=== PATIENT | female | born 1940 | race Caucasian/White ===

== ENCOUNTER 2017-11-02 18:08 | Inpatient (IN) ==
[2017-11-02] MEDS ORDERED: Ipratropium/Albuterol Neb 3 ML IH ONE (18:10)
--- NOTE | 2017-11-02 18:23 | Emergency Department Note ---
Disposition Clinical Impression: Community acquired pneumonia Disposition: Still a Patient Referrals: Chato Guardado CNP [Primary Care Provider] - Forms: ED Satisfaction Letter General Adult HPI - General Chief complaint: ED Shortness of Breath/Dyspnea Stated complaint: SOB Time Seen by Provider: 11/02/17 18:10 Source: EMS Nursing Notes Reviewed: Yes Vital Signs Reviewed: Yes - History of Present Illness Pain Scale: 0 - Related Data Allergies Allergy/AdvReac Type Severity Reaction Status Date / Time No Known Allergies Allergy Verified 11/02/17 18:12 Past Medical History - Past Medical History Medical history: Reports: cancer, COPD, hyperlipidemia, hypertension Psychiatric history: Reports: no psych history - Social History Smoking Status: Former smoker Smokeless Tobacco Status: No Alcohol use: Reports: none Drug use: Reports: none Physical Exam - General General appearance: alert, anxious Course Vital Signs Temperature 103.1 F H 11/02/17 18:13 Pulse Rate 149 11/02/17 18:13 Respiratory Rate 28 11/02/17 18:13 Blood Pressure 153/103 11/02/17 18:13 O2 Sat by Pulse Oximetry 91 11/02/17 18:13 Temperature 103.1 F H 11/02/17 18:13 Pulse Rate 145 11/02/17 18:28 Respiratory Rate 28 11/02/17 18:28 Blood Pressure 153/103 11/02/17 18:28 O2 Sat by Pulse Oximetry 95 11/02/17 18:28 Oxygen Delivery Oxygen Delivery Nasal Cannula Medical Decision Making - MDM Narrative Medical decision making narrative: This documentation is done with the assistance of Dragon dictation. Despite efforts made to ensure accuracy, there may be inaccuracies in undergraduate advisor or spelling and typographical errors. I examined this patient and my medical decision-making was reviewed with the Resident Physician. I agree with the documented findings, disposition and treatment plan as described except to the extent set forth below. Patient seen on arrival with EMS. Saw her with Dr. Thompson and myself. I agree with her evaluation and management plan, supervised the care the patient's stay. Patient comes in with increasing shortness of breath patient has a history of ovarian cancer with some thickness metastatic disease to the lungs. She is very dyspneic and is basically one word conversational dyspnea shows crackles in her lungs but she also sounds wet. Regular chest x-ray start her on BiPAP. She does not want to be intubated. Spoke to her daughter by phone and her daughter says she is a no code and no intubation. Patient denies any chest pain no fevers. Under chest x-ray BiPAP nebulized treatments lab work and she will need admission. We will stabilize her and then sign her out to the evening ER physician Dr. Damon for further management and disposition. 1816 hrs.: Patient has a sinus tachycardia on EKG with a rate of 144, MI interval is short at 110 care 79 QTc is 405, nonspecific changes in the precordial leads. Compared with an EKG she had done 2 years ago shows no changes except for rate. Chest X-Ray 11/02/17 18:10 IMPRESSION: 1. Increased density within the right hilum which may represent soft tissue mass with postobstructive atelectasis. Alternatively this could be right upper lobe pneumonia with right hilar adenopathy. I would recommend a CT scan of the chest with intravenous contrast for further evaluation. D/ / Mark Anthony Graham MD / Mark Anthony Graham MD Interpreting Provider: Mark Anthony Graham MD 1845 hrs.: Were going to start her on antibiotics. We are going to sign this out to the evening air Dr. Dr. griffin here for further management and disposition. Patient can actually get to 3 words out chest for water which I am given her she is up going on BiPAP then and the remaining lab workup for be completed. - Lab Data Lab Results 11/02/17 Range/Units 18:31 Sample Site R Radial ABG pH 7.48 H (7.32-7.45) pH Units ABG pCO2 28 L (35-45) mmHg ABG pO2 57 L (85-104) mmHg ABG HCO3 20 L (21-27) mEq/L ABG Total CO2 21 (20-26) mEq/L ABG O2 Saturation 92 L (95-98) % ABG Base Excess -2 (-2 to 3) mEq/L Jose Test Positive O2 Delivery Device Cannula Inspired O2 36.0 (1-15=lpm [id number]=%)
[2017-11-02 18:34] LABS: ABG Base Excess -2 mEq/L (-2 to 3); ABG HCO3 20 mEq/L (21-27); ABG Oxygen Saturation 92 % (95-98); ABG PCO2 28 mmHg (35-45); ABG PH 7.48 pH Units (7.32-7.45); ABG PO2 57 mmHg (85-104); ABG TCO2 21 mEq/L (20-26)
[2017-11-02] MEDS ORDERED: *HR* FentaNYL (PF) 100 MCG/2 ML VIAL IVP ONE (18:44)
[2017-11-02] MEDS ORDERED: Piperacillin/Tazobactam 3.375 GM in 0.9 % Sodium Chloride Mini Bag 100 ML IVPB ONE (18:48)
[2017-11-02] MEDS: 0.9 % Sodium Chloride 1,000 ML IVC SCH (18:49)
[2017-11-02] MEDS ORDERED: Acetaminophen 325 MG TABLET PO ONE (18:51)
--- NOTE | 2017-11-02 18:51 | Emergency Department Note ---
Disposition Clinical Impression: Respiratory distress Disposition: Still a Patient Condition: Fair Referrals: Chato Guardado CNP [Primary Care Provider] - Forms: ED Satisfaction Letter Time of Disposition: 18:54 General Adult HPI - General Chief complaint: ED Shortness of Breath/Dyspnea Stated complaint: SOB Time Seen by Provider: 11/02/17 18:10 Source: EMS Nursing Notes Reviewed: Yes Vital Signs Reviewed: Yes - History of Present Illness HPI Narrative: Shortness of breath that began today. Does have a history of metastatic ovarian cancer. States her head no to any kind of pain. Currently [place] get a full review of systems due to patient respiratory status. Pain Scale: 0 - Related Data Allergies Allergy/AdvReac Type Severity Reaction Status Date / Time No Known Allergies Allergy Verified 11/02/17 18:12 Limitations: ROS unobtainable due to patients medical condition Past Medical History - Past Medical History Attestation: Yes The following information was validated with the patient. Source: patient Medical history: Reports: cancer, COPD, hyperlipidemia, hypertension Psychiatric history: Reports: no psych history - Social History Smoking Status: Former smoker Smokeless Tobacco Status: No Alcohol use: Reports: none Drug use: Reports: none Physical Exam - General Limitations: other (In severe respiratory distress) General appearance: alert, anxious, in distress (Respiratory distress) - Head Head exam: atraumatic, normocephalic, normal inspection - Eye Eye exam: Present: normal appearance, PERRL, EOMI - ENT ENT exam: normal exam, normal oropharynx, mucous membranes dry, other (lips chapped) - Neck Neck exam: Present: trachea midline - Chest Chest inspection: Present: normal inspection, symmetric chest wall rise - Respiratory Respiratory exam: Present: respiratory distress (Severe), accessory muscle use, other (Rales throughout) - Cardiovascular Cardiovascular exam: Present: tachycardia, normal heart sounds - Abdominal Exam Abdominal exam: Present: soft, Non-Tender. Absent: distention, guarding, rigidity, organomegaly - Extremities Exam Extremities exam: Present: normal inspection, normal capillary refill. Absent: pedal edema - Back Exam Back exam: Present: normal inspection, full ROM. Absent: tenderness - Neurological Exam Neurological exam: Present: alert, oriented X3, other (Will answer questions appropriately however is in severe respiratory distress.) - Psychiatric Psychiatric exam: Present: anxious - Skin Skin exam: Present: warm, dry, intact, normal color Course Course Narrative: Female patient presents in respiratory by EMS for shortness of breath. EMS states that they are aware of the patient have known her for several years. He states that she has metastatic ovarian cancer. He was significantly short of breath whenever they got to her house. She does have rales throughout. She is using accessory muscles to breathe. She is mentating appropriately but in significant distress. I discussed intubation with her and she requests not to be intubated. Place patient on BiPAP at this time. We have started her on fluids but at a low rate due to her rales. She does not appear to have edema is in her extremities. She shakes her head no to any recent fevers. However it is hard to get a full review of systems due to her significant respiratory distress. She is tachycardic on exam. We will start 2 IVs get a chest x-ray. We will give her 3 duo nebs. We will do a sepsis workup on her and start her on Vanco and Zosyn. I anticipate admission. I spoke with the patient's daughter on the phone. The daughter states that the patient does have paperwork somewhere but she is unaware of that that would talk about her wishes. The patient's daughter was questioned several times and she states the patient would not want to have CPR and she does not want to be intubated or placed on a ventilator. We will honor these wishes as the patient has also expressed no intubation. Vital Signs Temperature 103.1 F H 11/02/17 18:13 Pulse Rate 149 11/02/17 18:13 Respiratory Rate 28 11/02/17 18:13 Blood Pressure 153/103 11/02/17 18:13 O2 Sat by Pulse Oximetry 91 11/02/17 18:13 Temperature 103.1 F H 11/02/17 18:13 Pulse Rate 145 11/02/17 18:28 Respiratory Rate 28 11/02/17 18:28 Blood Pressure 153/103 11/02/17 18:28 O2 Sat by Pulse Oximetry 95 11/02/17 18:28 Oxygen Delivery Oxygen Delivery Nasal Cannula Medical Decision Making - Lab Data Lab Results 11/02/17 Range/Units 18:31 Sample Site R Radial ABG pH 7.48 H (7.32-7.45) pH Units ABG pCO2 28 L (35-45) mmHg ABG pO2 57 L (85-104) mmHg ABG HCO3 20 L (21-27) mEq/L ABG Total CO2 21 (20-26) mEq/L ABG O2 Saturation 92 L (95-98) % ABG Base Excess -2 (-2 to 3) mEq/L Jose Test Positive O2 Delivery Device Cannula Inspired O2 36.0 (1-15=lpm [id number]=%) S.B.A.Clifford. - S.[email or web address] Background: Presenting Complaint (Severe shortness of breath), Relevant PMH, Meds, & Allergies (Metastatic ovarian cancer with metastases to the chest and lymph nodes.) Assessment: Course and respsone to treatment (On BiPAP.), Exam Concerns ( Significant rales throughout.), Patient/Family Expectation (Family has expressed that the patient is a DNI.) Recommendation: Recommendation based on pending studies, treatments, or consults (Admission) S.B.A.R. Report Given to: Marcelino Herzog Repor Time: 18:54
[2017-11-02 19:05] LABS: Hematocrit 37.4 % (35.3-44.9); Hemoglobin 13.4 g/dL (11.5-15.4); Mean Corpuscular HGB Conc 35.8 g/dL (31.6-35.5); Mean Corpuscular Hemoglobin 33.6 pg (28.0-33.3); Mean Corpuscular Volume 93.7 fL (83.0-100.0); Mean Platelet Volume 10.5 fL (9.4-12.4); Platelet Count 185 K/mcL (140-400); Red Blood Count 3.99 M/mcL (3.82-4.97); Red Cell Distribution Width 13.8 % (11.5-14.5)
[2017-11-02 19:06] LABS: INR 1.5; Prothrombin Time 15.8 Seconds (9.4-12.1)
[2017-11-02 19:22] LABS: Albumin 3.8 g/dL (3.5-5.7); Albumin/Globulin Ratio 1.2 (1.1-2.2); Bilirubin,Total 1.2 mg/dL (0.3-1.0); Calcium 8.9 mg/dL (8.6-10.3); Globulin 3.1 g/dL (2.4-3.5); Potassium 3.3 mEq/L (3.5-5.1); Total Protein 6.9 g/dL (6.4-8.9)
[2017-11-02 19:38] LABS: Lymphocytes # 1.6 K/mcL (0.6-4.6); Monocytes # 2.2 K/mcL (0.0-1.3); Neutrophils # 23.3 K/mcL (1.6-8.9); Platelet Estimate Normal (Normal)
[2017-11-02 19:42] LABS: Troponin I 0.05 ng/mL (< 0.04)
[2017-11-02] MEDS ORDERED: Propofol 500 MG/50 ML INFUS..BTL ONE (19:51)
[2017-11-02] MEDS ORDERED: 0.9 % Sodium Chloride 1,000 ML IVC ONE (19:53)
[2017-11-02] MEDS ORDERED: 0.9 % Sodium Chloride 500 ML IVC ONE ×2 (19:53→23:08)
[2017-11-02] MEDS ORDERED: Levofloxacin 750 MG/150 ML 750 MG/150 ML BAG IVPB ONE (19:53)
[2017-11-02 19:57] LABS: Magnesium 1.3 mg/dL (1.6-2.6); Phosphorous 1.6 mg/dL (2.7-4.5)
--- NOTE | 2017-11-02 20:10 | Emergency Department Note ---
Disposition Clinical Impression: Respiratory distress Community acquired pneumonia Qualifiers: Laterality: right Lung location: upper lobe of lung Qualified Code(s): J18.1 - Lobar pneumonia, unspecified organism Sepsis Qualifiers: Sepsis type: sepsis due to unspecified organism Qualified Code(s): A41.9 - Sepsis, unspecified organism Disposition: Admitted As Inpatient Condition: Fair Time of Disposition: 20:30 General Adult HPI - General Chief complaint: ED Shortness of Breath/Dyspnea Stated complaint: SOB Time Seen by Provider: 11/02/17 18:10 Source: EMS Limitations: other (In severe respiratory distress) - History of Present Illness Pain Scale: 0 - Related Data Home Medications Medication Instructions Recorded Confirmed Albuterol Sulfate [Ventolin Hfa] 1 puff IH DAILY PRN 11/02/17 11/02/17 Citalopram Hydrobromide 40 mg PO DAILY 11/02/17 11/02/17 [Citalopram HBr] Lisinopril [Zestril] 40 mg PO DAILY 11/02/17 11/02/17 Rucaparib Camsylate [Rubraca] 30 mg PO DAILY 11/02/17 11/02/17 Allergies Allergy/AdvReac Type Severity Reaction Status Date / Time No Known Allergies Allergy Verified 11/02/17 18:12 Past Medical History - Past Medical History Medical history: Reports: cancer, COPD, hyperlipidemia, hypertension Psychiatric history: Reports: no psych history - Social History Smoking Status: Former smoker Smokeless Tobacco Status: No Alcohol use: Reports: none Drug use: Reports: none Physical Exam - General Limitations: other (In severe respiratory distress) General appearance: alert, anxious, in distress (Respiratory distress) Course Course Narrative: 77-year-old female presenting with shortness of breath signed out to us by the day team. Patient's laboratory analysis shows elevated white blood cell count along with probable right upper lobe pneumonia. Patient was attempted to be placed on BiPAP but respiratory rate still in the 50s. We spoke at length with the patient and her daughter who is her power of state's attorney and they agreed to admit the patient at this time. Patient is alert and oriented 3 in the room. She is tachycardic and hypertensive but otherwise vital signs stable. We will plan to intubate the patient and perform a CT of the chest. We will then admit the patient to the ICU. Patient and family members at bedside agree with this plan. I spoke with the hospitalist on-call Dr. Franks who agrees to accept the patient at this time to the ICU. Patient tolerated intubation well. We added Levaquin to the bank and Zosyn arty prescribed. We also provided thee patient with another 1500 mL of fluid to reach her 30 mL/kg dosing for sepsis. Vital Signs Temperature 103.1 F H 11/02/17 18:13 Pulse Rate 149 11/02/17 18:13 Respiratory Rate 28 11/02/17 18:13 Blood Pressure 153/103 11/02/17 18:13 O2 Sat by Pulse Oximetry 91 11/02/17 18:13 Temperature 98.9 F 11/03/17 03:57 Pulse Rate 118 11/03/17 06:00 Respiratory Rate 18 11/03/17 06:00 Blood Pressure 113/62 11/03/17 06:00 O2 Sat by Pulse Oximetry 100 11/03/17 06:00 Oxygen Delivery Oxygen Delivery Ventilator Procedures - Intubation Time out performed: Yes sedative: Etomidate Mg Given: 20 paralytic: Rocuronium Mg Given: 100 Laryngoscope: fiber optic video scope ET Tube Size: 7.5 ET Tube Uncuffed: No Tube Secured Depth (cm): 20 Tube Secured Location: lips Tube Placement Confirmation: visualized tube passing through cords, equal breath sounds bilaterally, no breath sounds over epigastrium, confirmation by capnometry Patient Tolerated Procedure: well Intubation Complications: difficult intubation Medical Decision Making - Lab Data Result diagrams: 11/03/17 04:15 11/03/17 04:15 Lab Results 11/02/17 11/02/17 11/02/17 Range/Units 18:31 18:42 18:42 WBC 27.1 H (4.3-11.1) K/mcL RBC 3.99 (3.82-4.97) M/mcL Hgb 13.4 (11.5-15.4) g/dL Hct 37.4 (35.3-44.9) % MCV 93.7 (83.0-100.0) fL MCH 33.6 H (28.0-33.3) pg MCHC 35.8 H (31.6-35.5) g/dL RDW 13.8 (11.5-14.5) % Plt Count 185 (140-400) K/mcL MPV 10.5 (9.4-12.4) fL Seg Neutrophils % 68.0 % Band Neutrophils % 18.0 H (0-4) % Lymphocytes % 6.0 % Monocytes % 8.0 % Neutrophils # 23.3 H (1.6-8.9) K/mcL Lymphocytes # 1.6 (0.6-4.6) K/mcL Monocytes # 2.2 H (0.0-1.3) K/mcL Platelet Estimate Normal (Normal) PT 15.8 H (9.4-12.1) Seconds INR 1.5 Sample Site R Radial ABG pH 7.48 H (7.32-7.45) pH Units ABG pCO2 28 L (35-45) mmHg ABG pO2 57 L (85-104) mmHg ABG HCO3 20 L (21-27) mEq/L ABG Total CO2 21 (20-26) mEq/L ABG O2 Saturation 92 L (95-98) % ABG Base Excess -2 (-2 to 3) mEq/L Jose Test Positive O2 Delivery Device Cannula Inspired O2 36.0 (1-15=lpm [id number]=%) Sodium (136-145) mEq/L Potassium (3.5-5.1) mEq/L Chloride (98-107) mEq/L Carbon Dioxide (23-29) mEq/L BUN (8-23) mg/dL Creatinine (0.60-1.20) mg/dL Est GFR ( Amer) (> 60) Est GFR (Non-Af Amer) (> 60) BUN/Creatinine Ratio (6-26) Glucose (70-105) mg/dL Calculated Osmolality (280-300) Lactic Acid (0.5-2.2) mmol/L Calcium (8.6-10.3) mg/dL Phosphorus (2.7-4.5) mg/dL Magnesium (1.6-2.6) mg/dL Total Bilirubin (0.3-1.0) mg/dL AST (13-39) Units/L ALT (7-52) Units/L Alkaline Phosphatase (34-104) Units/L Troponin I (< 0.04) ng/mL B-Natriuretic Peptide (Less than 100) pg/mL Serum Total Protein (6.4-8.9) g/dL Albumin (3.5-5.7) g/dL Globulin (2.4-3.5) g/dL Albumin/Globulin Ratio (1.1-2.2) 11/02/17 11/02/17 11/02/17 Range/Units 18:42 18:42 18:42 WBC (4.3-11.1) K/mcL RBC (3.82-4.97) M/mcL Hgb (11.5-15.4) g/dL Hct (35.3-44.9) % MCV (83.0-100.0) fL MCH (28.0-33.3) pg MCHC (31.6-35.5) g/dL RDW (11.5-14.5) % Plt Count (140-400) K/mcL MPV (9.4-12.4) fL Seg Neutrophils % % Band Neutrophils % (0-4) % Lymphocytes % % Monocytes % % Neutrophils # (1.6-8.9) K/mcL Lymphocytes # (0.6-4.6) K/mcL Monocytes # (0.0-1.3) K/mcL Platelet Estimate (Normal) PT (9.4-12.1) Seconds INR Sample Site ABG pH (7.32-7.45) pH Units ABG pCO2 (35-45) mmHg ABG pO2 (85-104) mmHg ABG HCO3 (21-27) mEq/L ABG Total CO2 (20-26) mEq/L ABG O2 Saturation (95-98) % ABG Base Excess (-2 to 3) mEq/L Jose Test O2 Delivery Device Inspired O2 (1-15=lpm [id number]=%) Sodium 137 (136-145) mEq/L Potassium 3.3 L (3.5-5.1) mEq/L Chloride 102 (98-107) mEq/L Carbon Dioxide 20 L (23-29) mEq/L BUN 29 H (8-23) mg/dL Creatinine 1.52 H (0.60-1.20) mg/dL Est GFR ( Amer) 40 L (> 60) Est GFR (Non-Af Amer) 33 L (> 60) BUN/Creatinine Ratio 19 (6-26) Glucose 176 H (70-105) mg/dL Calculated Osmolality 294 (280-300) Lactic Acid 2.1 (0.5-2.2) mmol/L Calcium 8.9 (8.6-10.3) mg/dL Phosphorus 1.6 L (2.7-4.5) mg/dL Magnesium 1.3 L (1.6-2.6) mg/dL Total Bilirubin 1.2 H (0.3-1.0) mg/dL AST 36 (13-39) Units/L ALT 24 (7-52) Units/L Alkaline Phosphatase 95 (34-104) Units/L Troponin I 0.05 H* (< 0.04) ng/mL B-Natriuretic Peptide 112 H (Less than 100) pg/mL Serum Total Protein 6.9 (6.4-8.9) g/dL Albumin 3.8 (3.5-5.7) g/dL Globulin 3.1 (2.4-3.5) g/dL Albumin/Globulin Ratio 1.2 (1.1-2.2) Attestation Statement - Attestation Attestation: I examined this patient and my medical decision-making was reviewed with the Resident Physician. I agree with the documented findings, disposition and treatment plan as described except to the extent set forth below. Patient is alert and oriented and failing BiPAP. She is requesting to be intubated. She does have possible reversible causes of illness including pneumonia. She is febrile and has influenza. We will start treatment with antibiotics, admit to intensive care unit. Patient was intubated without any difficulties. She does appear to be responsive to IV fluids. Patient remains in critical condition with high potential for life-threatening deterioration. I spent greater than 35 minutes of critical care time. This was excluding billable procedures.
[2017-11-02] MEDS: Propofol 500 MG/50 ML INFUS..BTL IVC SCH (20:13)
[2017-11-02] MEDS ORDERED: *HR* Rocuronium Bromide 50 MG/5 ML VIAL IVP ONE (20:28)
[2017-11-02] MEDS ORDERED: *HR* Etomidate 20 MG/10 ML AMPUL IVP ONE (20:28)
[2017-11-02 21:06] LABS: Bilirubin,Urine Small (Negative); Blood,Urine Large (Negative); Clarity,Urine Turbid (Clear); Color,Urine Dark Yellow (Yellow); Glucose,Urine (UA) Normal (Normal); Ketones,Urine Trace mg/dL (Negative); Leukocyte Esterase,Urine Negative (Negative); Nitrite,Urine Negative (Negative); PH,Urine 5.5 pH Units (5.0-8.0); Protein,Urine >=300 mg/dL (Neg-Trace); Urobilinogen,Urine Normal (Normal)
[2017-11-02 21:09] LABS: Bacteria,Urine None Seen per hpf (None-Few); Squamous Epithelial Cell,Urine Many per lpf (None-Few)
[2017-11-02 21:13] LABS: Amorphous Sediment,Urine Many (Few); RBC,Urine 0-3 per hpf (0-3)
[2017-11-02 21:14] LABS: Granular Casts,Urine Few per lpf (None Seen)
--- NOTE | 2017-11-02 21:18 | Pulmonology History & Physical ---
<Ian Lopez - Last Filed: 11/02/17 22:46> Date of Encounter: 11/02/17 Time of Encounter: 21:14 Assessment and Plan (1) Acute respiratory failure Current visit: Yes Status: Acute - Acute respiratory failure was secondary to multifocal pneumonia as demonstrated on chest CT on 11/02/17 - Patient did require intubation and mechanical ventilation in the emergency department due to accessory muscles fatigue and tachypnea - Vitals significant for tachycardia, tachypnea, fever of 103.1 - Started on vancomycin, zosyn, levaquin in ED - ABG showing respiratory alkalosis likely secondary to tachypnea - She did receive a 30mL/kg bolus in ED per sepsis protocol - No home O2 requirement. No diagnosis of COPD however is a current smoker. Plan - Continue Vanc, zosyn, levaquin as above for multifocal PNA - Continue ventilator support - Sedation with fentanyl and versed - Continue to closely monitor in ICU Qualifiers: Respiratory failure complication: hypoxia Qualified Code(s): J96.01 - Acute respiratory failure with hypoxia (2) Severe sepsis Current visit: Yes Status: Acute - Severe sepsis secondary to multifocal PNA as above - Lactic acid on presentation of 2.1 - Vitals significant for tachycardia, tachypnea, fever of 103.1. - WBC of 27.1 - Started on empiric coverage in ED with vanc, zosyn, levaquin Plan - Continue abx as above, day #1 - Monitor for need for pressor support. Currently hypertensive - Trend lactic acid, daily labs (3) Multifocal pneumonia Current visit: Yes Status: Acute - As above for severe sepsis and respiratory failure - Currently on chemo agents with treatment in [place]. (4) Acute kidney injury Current visit: Yes Status: Acute - BUN/Cr of 28/1.52 in ED - Baseline at only other visit in 2016 shows a Cr of 0.87 - This is possibly due to severe sepsis and dehydration Plan - Receiving NS boluses as well as maintenance fluids following - Avoid nephrotoxic agents - Consider discontinue vanc if she clinically improves. (5) Ovarian cancer Current visit: Yes Status: Acute - Reported metastatic ovarian cancer per granddaughter and ED physician - Receives treatment in [place] - Currently taking chemo agents. - Will attempt to obtain records - Continue treatment as outpatient. Qualifiers: Laterality: unspecified laterality Qualified Code(s): C56.9 - Malignant neoplasm of unspecified ovary (6) Diabetes mellitus Current visit: Yes Status: Acute - Suspected DM however not documented in chart. - Glucose of 176 in ED - Will obtain A1c - SSI Qualifiers: Diabetes mellitus type: type 2 Diabetes mellitus usp insulin use: unspecified usp insulin use status Diabetes mellitus complication status : with unspecified complications Qualified Code(s): E11.8 - Type 2 diabetes mellitus with unspecified complications (7) CAD (coronary artery disease) Current visit: Yes Status: Chronic - Daughter reports history of stents - Will continue ASA, BB as BP and HR tolerate. Qualifiers: Coronary Disease-Associated Artery/Lesion type: [place] artery [place] vs. transplanted heart: [place] heart Associated angina: angina presence unspecified Qualified Code(s): I25.10 - Atherosclerotic heart disease of [place] coronary artery without angina pectoris (8) Physical deconditioning Current visit: Yes Status: Acute - PT/OT when able (9) DVT prophylaxis Current visit: Yes Status: Acute Lovenox History of Present Illness Chief complaint: SOB HPI: Ms. Hooper is a 77 year old female with past medical history of CAD, ovarian cancer, diabetes presents emergency room with a complaint of shortness of breath. During time of interview, patient is intubated and sedated and is unable to participate in interview. Subjective history is obtained through chart review as well as granddaughter, who is present at bedside. Per granddaughter, patient has been complaining of shortness of breath, chest congestion for the past week however she has noted that it has gotten progressively worse starting this morning. She was complaining of a cough but is been unable to produce sputum. She has noted some subjective fevers. In the emergency department, vital signs were significant for tachycardia with EKG showing sinus tachycardia with rate in the 140s. Tachypnea in high 20s, hypertension, fever of 103.1. Labs were significant for a WBC of 27.1, potassium 3.3, AK I with BUN/creatinine of 28/1.52, ABG shows a respiratory alkalosis and lactic acid 2.1. BNP was 112. She did receive fluid resuscitation. Patient did remain tachypneic and using accessory muscles to breathe despite positive pressure ventilation. This was discussed with the patient and her family who were alert and oriented 3 at the time and they did agree to intubation. She was started on vancomycin, Zosyn, Levaquin and also received DuoNeb breathing treatments. CT scan obtained in emergency department did show a likely multifocal pneumonia. Past Med Surg Social Fam HX - Past Medical History Medical history: cancer, COPD, hyperlipidemia, hypertension Psychiatric history: no psych history - Social History Smoking Status: Former smoker Smokeless Tobacco Status: No Alcohol use: none Drug use: none Medications and Allergies Albuterol Sulfate [Ventolin Hfa] 1 puff IH DAILY PRN 11/02/17 [History] Citalopram Hydrobromide [Citalopram HBr] 40 mg PO DAILY 11/02/17 [History] Lisinopril [Zestril] 40 mg PO DAILY 11/02/17 [History] Rucaparib Camsylate [Rubraca] 30 mg PO DAILY 11/02/17 [History] 3 Allergy/AdvReac Type Severity Reaction Status Date / Time No Known Allergies Allergy Verified 11/02/17 18:12 ROS unobtainable: due to endotracheal tube All Systems: The remainder of the systems were reviewed and are negative Physical Examination Vital Signs: Vital Signs, Last 4 Hours Pulse Resp BP Pulse Ox 11/02/17 21:04 144 15 203/85 92 11/02/17 20:43 147 15 208/99 95 11/02/17 20:25 16 95 Gen.: Vitals noted. No acute distress. Sedated and intubated, resting comfortably. HEENT: PERRL/EOMI, oropharynx clear, Normocephalic, atraumatic Cardiac: Tachycardic, no murmur, +S1/S2 Pulmonary: Moderate expiratory rhonchi appreciated diffusely. Abdomen: soft, nontender, BS noted, no guarding Extremities: no BLE edema, nontender calf, no cyanosis or clubbing. Warm to touch Neuro: Unable to assess secondary to sedation. Pupils reactive. Results - Laboratory Findings CBC and BMP: 11/02/17 18:42 11/02/17 18:42 ABG ABG pH 7.48 pH Units (7.32-7.45) H 11/02/17 18:31 ABG pCO2 28 mmHg (35-45) L 11/02/17 18:31 ABG pO2 57 mmHg (85-104) L 11/02/17 18:31 ABG O2 Saturation 92 % (95-98) L 11/02/17 18:31 PT/INR, D-dimer PT 15.8 Seconds (9.4-12.1) H 11/02/17 18:42 Abnormal lab findings: Abnormal lab results WBC 27.1 K/mcL (4.3-11.1) H 11/02/17 18:42 MCH 33.6 pg (28.0-33.3) H 11/02/17 18:42 MCHC 35.8 g/dL (31.6-35.5) H 11/02/17 18:42 Band Neutrophils % 18.0 % (0-4) H 11/02/17 18:42 Neutrophils # 23.3 K/mcL (1.6-8.9) H 11/02/17 18:42 Monocytes # 2.2 K/mcL (0.0-1.3) H 11/02/17 18:42 PT 15.8 Seconds (9.4-12.1) H 11/02/17 18:42 ABG pH 7.48 pH Units (7.32-7.45) H 11/02/17 18:31 ABG pCO2 28 mmHg (35-45) L 11/02/17 18:31 ABG pO2 57 mmHg (85-104) L 11/02/17 18:31 ABG HCO3 20 mEq/L (21-27) L 11/02/17 18:31 ABG O2 Saturation 92 % (95-98) L 11/02/17 18:31 Potassium 3.3 mEq/L (3.5-5.1) L 11/02/17 18: Carbon Dioxide 20 mEq/L (23-29) L 11/02/17 18:42 BUN 29 mg/dL (8-23) H 11/02/17 18:42 Creatinine 1.52 mg/dL (0.60-1.20) H 11/02/17 18:42 Est GFR ( Amer) 40 (> 60) L 11/02/17 18:42 Est GFR (Non-Af Amer) 33 (> 60) L 11/02/17 18:42 Glucose 176 mg/dL (70-105) H 11/02/17 18:42 Phosphorus 1.6 mg/dL (2.7-4.5) L 11/02/17 18:42 Magnesium 1.3 mg/dL (1.6-2.6) L 11/02/17 18:42 Total Bilirubin 1.2 mg/dL (0.3-1.0) H 11/02/17 18:42 Troponin I 0.05 ng/mL (< 0.04) H* 11/02/17 18:42 B-Natriuretic Peptide 112 pg/mL (Less than 100) H 11/02/17 18:42 Ur Specimen Adequacy See below A 11/02/17 20:24 Urine Clarity Turbid (Clear) A 11/02/17 20:24 Ur Specific [place] 1.030 (1.010-1.025) H 11/02/17 20:24 Urine Protein >=300 mg/dL (Neg-Trace) H 11/02/17 20:24 Urine Ketones Trace mg/dL (Negative) H 11/02/17 20:24 Urine Blood Large (Negative) H 11/02/17 20:24 Urine Bilirubin Small (Negative) H 11/02/17 20:24 Urine Microscopic WBC TNTC per hpf (0-3) H 11/02/17 20:24 Ur Squamous Epith Cells Many per lpf (None-Few) H 11/02/17 20:24 <Victoria Aguayo - Last Filed: 11/03/17 03:54> Date of Encounter: 11/02/17 History of Present Illness HPI: Ms. Hooper is a 77 year old female All Systems: The remainder of the systems were reviewed and are negative Physical Examination Vital Signs: Vital Signs, Last 4 Hours Temp Pulse Resp BP Pulse Ox 11/03/17 03:19 18 102/59 95 11/03/17 02:28 21 102/58 95 11/03/17 02:00 113 18 102/58 95 11/03/17 01:00 123 19 131/95 98 11/03/17 00:08 98.4 F 11/03/17 00:00 122 15 122/65 96 11/02/17 23:49 15 118/52 961 Results - Laboratory Findings CBC and BMP: 11/02/17 22:40 11/02/17 22:40 ABG ABG pH 7.21 pH Units (7.32-7.45) L 11/03/17 02:45 ABG pCO2 51 mmHg (35-45) H 11/03/17 02:45 ABG pO2 78 mmHg (85-104) L 11/03/17 02:45 ABG O2 Saturation 92 % (95-98) L 11/03/17 02:45 PT/INR, D-dimer PT 15.8 Seconds (9.4-12.1) H 11/02/17 18:42 Abnormal lab findings: Abnormal lab results WBC 27.5 K/mcL (4.3-11.1) H 11/02/17 22:40 RBC 3.79 M/mcL (3.82-4.97) L 11/02/17 22:40 Band Neutrophils % 16.0 % (0-4) H 11/02/17 22:40 Neutrophils # 26.4 K/mcL (1.6-8.9) H 11/02/17 22:40 Dohle Bodies Present (Not Present) A 11/02/17 22:40 PT 15.8 Seconds (9.4-12.1) H 11/02/17 18:42 ABG pH 7.21 pH Units (7.32-7.45) L 11/03/17 02:45 ABG pCO2 51 mmHg (35-45) H 11/03/17 02:45 ABG pO2 78 mmHg (85-104) L 11/03/17 02:45 ABG O2 Saturation 92 % (95-98) L 11/03/17 02:45 ABG Base Excess -7 mEq/L (-2 to 3) L 11/03/17 02:45 Carbon Dioxide 20 mEq/L (23-29) L 11/02/17 22:40 BUN 28 mg/dL (8-23) H 11/02/17 22:40 Creatinine 1.69 mg/dL (0.60-1.20) H 11/02/17 22:40 Est GFR ( Amer) 36 (> 60) L 11/02/17 22:40 Est GFR (Non-Af Amer) 29 (> 60) L 11/02/17 22:40 Glucose 262 mg/dL (70-105) H 11/02/17 22:40 POC Glucose 220 mg/dL (58-89) H 11/02/17 21:50 Hemoglobin A1c 5.8 % (-5.6) H 11/02/17 22:40 Lactic Acid 4.1 mmol/L (0.5-2.2) H* 11/02/17 22:40 Calcium 7.7 mg/dL (8.6-10.3) L 11/02/17 22:40 Phosphorus 1.6 mg/dL (2.7-4.5) L 11/02/17 18:42 Magnesium 1.3 mg/dL (1.6-2.6) L 11/02/17 18:42 Total Bilirubin 1.2 mg/dL (0.3-1.0) H 11/02/17 18:42 Troponin I 0.05 ng/mL (< 0.04) H* 11/02/17 18:42 B-Natriuretic Peptide 112 pg/mL (Less than 100) H 11/02/17 18:42 Ur Specimen Adequacy See below A 11/02/17 20:24 Urine Clarity Turbid (Clear) A 11/02/17 20:24 Ur Specific [place] 1.030 (1.010-1.025) H 11/02/17 20:24 Urine Protein >=300 mg/dL (Neg-Trace) H 11/02/17 20:24 Urine Ketones Trace mg/dL (Negative) H 11/02/17 20:24 Urine Blood Large (Negative) H 11/02/17 20:24 Urine Bilirubin Small (Negative) H 11/02/17 20:24 Urine Microscopic WBC 5-15 per hpf (0-3) H 11/02/17 20:24 Ur Squamous Epith Cells Many per lpf (None-Few) H 11/02/17 20:24 Amorphous Sediment Many (Few) H 11/02/17 20:24 Granular Casts Few per lpf (None Seen) H 11/02/17 20:24 - Attending Attestation I examined this patient and my medical decision-making was reviewed with the Resident Physician Dr. Lopez. I agree with the documented findings, disposition and treatment plan as described except to the extent set forth below. Ms. Hooper is a 77 year old female with past medical history of CAD, metastatic ovarian cancer,COPD and diabetes presented to emergency room with a complaint of shortness of breath. She does have multi focal pneumonia and her hypoxia got worsened in the ER. So pt was intubated and admitted to ICU. When I examined the pt she is resting comfortably on vent. on sedation with Fentanyl and Versed gtt. Gen: on Vent.. Sedated Chest: Moderate wheezing, Diminished BS b/l, no crackles. mild rhonchi Heart : S1S2+ Sinus tachycardia Abd: Soft, NT a/p 1. Severe sepsis 2. Acute hypoxic resp failure 3. Acute VDRF 4. Acute COPD / Reactive airway disease exacerbation 5. Acute MLL pneumonia - mostly bacterial Broad spec abx Zosyn, Vanc and Levaquin Sedation Repeat ABG Duoneb IV steroids Talked to the pt's grand daughter at bed side and explained to her about current care 6. Ovaraian cancer 7. ?? Mets in lungs Reviewed CT of chest concerning for mets Will obtain medical records from [facility] Spent 60 minutes critical care time on this patient
[2017-11-02] MEDS ORDERED: *HR* Dextrose 50 % in Water (Syg) 50 ML SYRINGE IVP PRN (21:33)
[2017-11-02] MEDS ORDERED: Naloxone 0.4 MG/ML INJ IVP PRN (21:33)
[2017-11-02] MEDS ORDERED: Dextrose Gel 15 GM/37.5 ML TUBE PO PRN ×2 (21:33)
[2017-11-02] MEDS ORDERED: D5% in Water 1,000 ML IVC PRN (21:33)
[2017-11-02] MEDS ORDERED: Vancomycin (wt based) 1,000 MG VIAL IVPB SCH (22:00)
[2017-11-02] MEDS ORDERED: Potassium Phosphate 44 MEQ in 0.9 % Sodium Chloride 250 ML IVPB PRN (22:14)
--- NOTE | 2017-11-02 22:47 | Sepsis Event Note ---
Sepsis Reassessment Note - Evaluation Sepsis Screen: Sepsis Risk Current Stage of Sepsis: septic shock Possible Source of Sepsis: pulmonary - Focused Exam Date of Encounter: 11/02/17 Time of Encounter: 23:30 Vital Signs: Vital Signs Temp Pulse Resp BP Pulse Ox 11/02/17 22:35 15 184/83 93 11/02/17 22:01 140 11/02/17 22:00 140 15 196/86 92 11/02/17 21:52 99.2 F 141 15 187/85 95 11/02/17 21:04 144 15 203/85 92 11/02/17 20:43 147 15 208/99 95 11/02/17 20:25 16 95 Respiratory Exam: Present: rhonchi Cardiovascular Exam: Present: tachycardia, S1, S2 Capillary Refill: < 2 seconds Peripheral Pulse Strength: 2+ slightly diminished Peripheral Pulse Location: Radial Skin Exam: normal turgor
[2017-11-02] MEDS: FentaNYL (PF) 1,000 MCG in 0.9 % Sodium Chloride 80 ML IVC SCH (22:51)
[2017-11-02 22:57] LABS: Hematocrit 36.6 % (35.3-44.9); Hemoglobin 12.4 g/dL (11.5-15.4); Lymphocytes # 0.6 K/mcL (0.6-4.6); Mean Corpuscular HGB Conc 33.9 g/dL (31.6-35.5); Mean Corpuscular Hemoglobin 32.7 pg (28.0-33.3); Mean Corpuscular Volume 96.6 fL (83.0-100.0); Mean Platelet Volume 9.9 fL (9.4-12.4); Platelet Count 160 K/mcL (140-400); Red Blood Count 3.79 M/mcL (3.82-4.97); Red Cell Distribution Width 14.4 % (11.5-14.5)
[2017-11-02 23:07] LABS: Estimated Average Glucose 120 mg/dl; Hemoglobin A1C 5.8 %
[2017-11-02 23:09] LABS: Calcium 7.7 mg/dL (8.6-10.3); Potassium 3.7 mEq/L (3.5-5.1)
[2017-11-02 23:24] LABS: Dohle Bodies Present (Not Present); Monocytes # 0.6 K/mcL (0.0-1.3); Neutrophils # 26.4 K/mcL (1.6-8.9)
[2017-11-03 00:26] LABS: ABG Base Excess -10 mEq/L (-2 to 3); ABG HCO3 20 mEq/L (21-27); ABG Oxygen Saturation 94 % (95-98); ABG PCO2 64 mmHg (35-45); ABG PO2 99 mmHg (85-104); ABG TCO2 22 mEq/L (20-26); Blood Gas Modality VC; Blood Gas PEEP 5 cm H2O; Blood Gas Respiration Rate 15; Blood Gas VT 400 cc
[2017-11-03] MEDS ORDERED: Lacri-Lube 3.5 GM TUBE BOTH EYES PRN (02:28)
[2017-11-03 02:48] LABS: ABG Base Excess -7 mEq/L (-2 to 3); ABG HCO3 21 mEq/L (21-27); ABG Oxygen Saturation 92 % (95-98); ABG PCO2 51 mmHg (35-45); ABG PH 7.21 pH Units (7.32-7.45); ABG PO2 78 mmHg (85-104); ABG TCO2 22 mEq/L (20-26); Blood Gas Modality VC; Blood Gas PEEP 5 cm H2O; Blood Gas Respiration Rate 18; Blood Gas VT 400 cc
[2017-11-03] MEDS: Lacri-Lube 3.5 GM TUBE BOTH EYES SCH ×5 (04:00→21:01)
[2017-11-03] MEDS: 0.9 % Sodium Chloride 1,000 ML IVC SCH (04:00)
[2017-11-03 04:33] LABS: Hematocrit 34.5 % (35.3-44.9); Hemoglobin 11.9 g/dL (11.5-15.4); Mean Corpuscular HGB Conc 34.5 g/dL (31.6-35.5); Mean Corpuscular Hemoglobin 33.9 pg (28.0-33.3); Mean Corpuscular Volume 98.3 fL (83.0-100.0); Mean Platelet Volume 10.3 fL (9.4-12.4); Platelet Count 139 K/mcL (140-400); Red Blood Count 3.51 M/mcL (3.82-4.97); Red Cell Distribution Width 14.8 % (11.5-14.5)
[2017-11-03 04:45] LABS: Calcium 7.2 mg/dL (8.6-10.3); Potassium 3.9 mEq/L (3.5-5.1)
[2017-11-03 04:56] LABS: Adenovirus Not Detected (Not Detect); Bordetella Pertussis Not Detected (Not Detect); Chlamydophila pneumoniae Not Detected (Not Detect); Coronavirus 229E Not Detected (Not Detect); Coronavirus HKU1 Not Detected (Not Detect); Coronavirus NL63 Not Detected (Not Detect); Coronavirus OC43 Not Detected (Not Detect); Human Metapneumovirus Not Detected (Not Detect); Human Rhinovirus/Enterovirus Not Detected (Not Detect); Influenza A Subtype 2009 H1 Not Detected (Not Detect); Influenza A Untypeable Not Detected (Not Detect); Influenza B ***DETECTED*** (Not Detect); Mycoplasma pneumoniae Not Detected (Not Detect); Parainfluenza Virus 1 Not Detected (Not Detect); Parainfluenza Virus 2 Not Detected (Not Detect); Parainfluenza Virus 3 Not Detected (Not Detect); Parainfluenza Virus 4 Not Detected (Not Detect); Respiratory Syncytial Virus Not Detected (Not Detect)
[2017-11-03 05:16] LABS: Lymphocytes # 1.3 K/mcL (0.6-4.6); Monocytes # 1.3 K/mcL (0.0-1.3); Neutrophils # 13.8 K/mcL (1.6-8.9)
[2017-11-03 05:17] LABS: Dohle Bodies Present (Not Present); Platelet Estimate Normal (Normal)
[2017-11-03] MEDS ORDERED: Insulin LISPRO 300 UNITS/3 ML VIAL SQ SCH ×2 (06:00→07:30)
[2017-11-03] MEDS ORDERED: *HR* Enoxaparin 40 MG/0.4 ML SYRINGE SQ SCH (06:00)
[2017-11-03] MEDS ORDERED: Albuterol 2.5 MG/3 ML NEBULIZER IH PRN ×2 (07:00→08:16)
[2017-11-03] MEDS: Piperacillin/Tazobactam 3.375 GM in 0.9 % Sodium Chloride Mini Bag 100 ML IVPB SCH ×2 (07:15→18:00)
[2017-11-03] MEDS: Chlorhexidine Rinse 15 ML MOUTHWASH MM SCH ×2 (07:16→21:01)
[2017-11-03] MEDS: Pantoprazole 40 MG VIAL IVP SCH (07:16)
[2017-11-03] MEDS: MethylPREDNISolone 40 MG/ML VIAL IVP SCH ×2 (07:16→15:46)
[2017-11-03] MEDS: Oseltamivir Phosphate 30 MG CAPSULE PO SCH (07:17)
--- NOTE | 2017-11-03 07:25 | Internal Med History&Physical ---
<Ian Lopez - Last Filed: 11/03/17 07:22> Date of Encounter: 11/02/17 Time of Encounter: 21:14 Assessment and Plan (1) Acute respiratory failure Current visit: Yes Status: Acute - Acute respiratory failure was secondary to multifocal pneumonia as demonstrated on chest CT on 11/02/17 - Patient did require intubation and mechanical ventilation in the emergency department due to accessory muscles fatigue and tachypnea - Vitals significant for tachycardia, tachypnea, fever of 103.1 - Started on vancomycin, zosyn, levaquin in ED - ABG showing respiratory alkalosis likely secondary to tachypnea - She did receive a 30mL/kg bolus in ED per sepsis protocol - No home O2 requirement. No diagnosis of COPD however is a current smoker. Plan - Continue Vanc, zosyn, levaquin as above for multifocal PNA - Continue ventilator support - Sedation with fentanyl and versed - Continue to closely monitor in ICU Qualifiers: Respiratory failure complication: hypoxia Qualified Code(s): J96.01 - Acute respiratory failure with hypoxia (2) Severe sepsis Current visit: Yes Status: Acute - Severe sepsis secondary to multifocal PNA as above - Lactic acid on presentation of 2.1 - Vitals significant for tachycardia, tachypnea, fever of 103.1. - WBC of 27.1 - Started on empiric coverage in ED with vanc, zosyn, levaquin Plan - Continue abx as above, day #1 - Monitor for need for pressor support. Currently hypertensive - Trend lactic acid, daily labs (3) Multifocal pneumonia Current visit: Yes Status: Acute - As above for severe sepsis and respiratory failure - Currently on chemo agents with treatment in [place]. (4) Acute kidney injury Current visit: Yes Status: Acute - BUN/Cr of 28/1.52 in ED - Baseline at only other visit in 2016 shows a Cr of 0.87 - This is possibly due to severe sepsis and dehydration Plan - Receiving NS boluses as well as maintenance fluids following - Avoid nephrotoxic agents - Consider discontinue vanc if she clinically improves. (5) Ovarian cancer Current visit: Yes Status: Acute - Reported metastatic ovarian cancer per granddaughter and ED physician - Receives treatment in [place] - Currently taking chemo agents. - Will attempt to obtain records - Continue treatment as outpatient. Qualifiers: Laterality: unspecified laterality Qualified Code(s): C56.9 - Malignant neoplasm of unspecified ovary (6) Diabetes mellitus Current visit: Yes Status: Acute - Suspected DM however not documented in chart. - Glucose of 176 in ED - Will obtain A1c - SSI Qualifiers: Diabetes mellitus type: type 2 Diabetes mellitus usp insulin use: unspecified [place] insulin use status Diabetes mellitus complication status : with unspecified complications Qualified Code(s): E11.8 - Type 2 diabetes mellitus with unspecified complications (7) CAD (coronary artery disease) Current visit: Yes Status: Chronic - Daughter reports history of stents - Will continue ASA, BB as BP and HR tolerate. Qualifiers: Coronary Disease-Associated Artery/Lesion type: [place] artery [place] vs. transplanted heart: [place] heart Associated angina: angina presence unspecified Qualified Code(s): I25.10 - Atherosclerotic heart disease of [place] coronary artery without angina pectoris (8) Physical deconditioning Current visit: Yes Status: Acute - PT/OT when able (9) DVT prophylaxis Current visit: Yes Status: Acute Lovenox Internal Medicine - H&P: HPI Chief complaint: SOB Admitted From: Home Plans for Post Hospital Care: Home History of present illness: Ms. Hooper is a 77 year old female with past medical history of CAD, ovarian cancer, diabetes presents emergency room with a complaint of shortness of breath. During time of interview, patient is intubated and sedated and is unable to participate in interview. Subjective history is obtained through chart review as well as granddaughter, who is present at bedside. Per granddaughter, patient has been complaining of shortness of breath, chest congestion for the past week however she has noted that it has gotten progressively worse starting this morning. She was complaining of a cough but is been unable to produce sputum. She has noted some subjective fevers. In the emergency department, vital signs were significant for tachycardia with EKG showing sinus tachycardia with rate in the 140s. Tachypnea in high 20s, hypertension, fever of 103.1. Labs were significant for a WBC of 27.1, potassium 3.3, AK I with BUN/creatinine of 28/1.52, ABG shows a respiratory alkalosis and lactic acid 2.1. BNP was 112. She did receive fluid resuscitation. Patient did remain tachypneic and using accessory muscles to breathe despite positive pressure ventilation. This was discussed with the patient and her family who were alert and oriented 3 at the time and they did agree to intubation. She was started on vancomycin, Zosyn, Levaquin and also received DuoNeb breathing treatments. CT scan obtained in emergency department did show a likely multifocal pneumonia. Past Med Surg Social Fam HX - Past Medical History Medical history: cancer, COPD, hyperlipidemia, hypertension Psychiatric history: no psych history - Social History Smoking Status: Former smoker Smokeless Tobacco Status: No Alcohol use: none Drug use: none Internal Medicine - H&P: Meds Albuterol Sulfate [Ventolin Hfa] 1 puff IH DAILY PRN 11/02/17 [History] Citalopram Hydrobromide [Citalopram HBr] 40 mg PO DAILY 11/02/17 [History] Lisinopril [Zestril] 40 mg PO DAILY 11/02/17 [History] Rucaparib Camsylate [Rubraca] 30 mg PO DAILY 11/02/17 [History] 3 Allergy/AdvReac Type Severity Reaction Status Date / Time No Known Allergies Allergy Verified 11/02/17 18:12 ROS unobtainable: due to endotracheal tube All Systems PM: A 10-system review of systems was performed and is negative for pertinent findings except as documented above in the HPI. - Constitutional Vitals: Temp Pulse Resp BP Pulse Ox 98.9 F 122 19 141/71 97 11/03/17 03:57 11/03/17 07:00 11/03/17 07:00 11/03/17 07:00 11/03/17 07:00 Exam: Gen.: Vitals noted. No acute distress. Sedated and intubated, resting comfortably. HEENT: PERRL/EOMI, oropharynx clear, Normocephalic, atraumatic Cardiac: Tachycardic, no murmur, +S1/S2 Pulmonary: Moderate expiratory rhonchi appreciated diffusely. Abdomen: soft, nontender, BS noted, no guarding Extremities: no BLE edema, nontender calf, no cyanosis or clubbing. Warm to touch Neuro: Unable to assess secondary to sedation. Pupils reactive. Internal Med - H&P Results - Labs CBC & Chem 7: 11/03/17 04:15 11/03/17 04:15 Labs: Short CBC 11/02/17 11/03/17 Range/Units 22:40 04:15 WBC 27.5 H 16.6 H (4.3-11.1) K/mcL Hgb 12.4 11.9 (11.5-15.4) g/dL Hct 36.6 34.5 L (35.3-44.9) % Plt Count 160 139 L (140-400) K/mcL Neutrophils # 26.4 H 13.8 H (1.6-8.9) K/mcL BMP 11/02/17 11/03/17 22:40 04:15 Sodium 137 138 Potassium 3.7 3.9 Chloride 105 110 H Carbon Dioxide 20 L 20 L BUN 28 H 31 H Creatinine 1.69 H 1.66 H Glucose 262 H 168 H Calcium 7.7 L 7.2 L Urine 11/02/17 Range/Units 20:24 Urine Color Dark Yellow (Yellow) Urine Clarity Turbid A (Clear) Urine pH 5.5 (5.0-8.0) pH Units Ur Specific [place] 1.030 H (1.010-1.025) Urine Protein >=300 H (Neg-Trace) mg/dL Urine Glucose (UA) Normal (Normal) mg/dL - ABG Interpretation ABG results: 11/03/17 11/03/17 00:22 02:45 ABG pH 7.10 L* D 7.21 L ABG pCO2 64 H D 51 H ABG pO2 99 D 78 L ABG HCO3 20 L 21 ABG Total CO2 22 22 ABG O2 Saturation 94 L 92 L ABG Base Excess -10 L -7 L <Victoria Aguayo - Last Filed: 11/04/17 06:56> Date of Encounter: 11/02/17 Internal Medicine - H&P: HPI History of present illness: Ms. Hooper is a 77 year old female All Systems PM: A 10-system review of systems was performed and is negative for pertinent findings except as documented above in the HPI. - Constitutional Vitals: Temp Pulse Resp BP Pulse Ox 98.5 F 102 22 104/64 96 11/04/17 03:50 11/04/17 06:00 11/04/17 06:11 11/04/17 06:11 11/04/17 06:11 Internal Med - H&P Results - Labs CBC & Chem 7: 11/04/17 03:50 11/04/17 03:50 Labs: Short CBC 11/04/17 Range/Units 03:50 WBC 11.4 H (4.3-11.1) K/mcL Hgb 10.6 L (11.5-15.4) g/dL Hct 30.8 L (35.3-44.9) % Plt Count 150 (140-400) K/mcL Neutrophils # 10.1 H (1.6-8.9) K/mcL BMP 11/03/17 11/04/17 10:42 03:50 Sodium 139 Potassium 4.0 3.7 Chloride 110 H Carbon Dioxide 20 L BUN 57 H Creatinine 3.06 H Glucose 199 H Calcium 8.0 L Cardiac Enzymes 11/03/17 Range/Units 07:25 Troponin I 0.05 H* (< 0.04) ng/mL - ABG Interpretation ABG results: 11/03/17 11/03/17 11/03/17 00:22 02:45 11:37 ABG pH 7.10 L* D 7.21 L 7.28 L ABG pCO2 64 H D 51 H 42 ABG pO2 99 D 78 L 90 ABG HCO3 20 L 21 20 L ABG Total CO2 22 22 21 ABG O2 Saturation 94 L 92 L 96 ABG Base Excess -10 L -7 L -6 L 11/04/17 05:08 ABG pH 7.27 L ABG pCO2 45 ABG pO2 74 L ABG HCO3 21 ABG Total CO2 22 ABG O2 Saturation 93 L ABG Base Excess -6 L - Attending Attestation I examined this patient and my medical decision-making was reviewed with the Resident Physician Dr. Lopez. I agree with the documented findings, disposition and treatment plan as described except to the extent set forth below. Ms. Hooper is a 77 year old female with past medical history of CAD, metastatic ovarian cancer,COPD and diabetes presented to emergency room with a complaint of shortness of breath. She does have multi focal pneumonia and her hypoxia got worsened in the ER. So pt was intubated and admitted to ICU. When I examined the pt she is resting comfortably on vent. on sedation with Fentanyl and Versed gtt. Gen: on Vent.. Sedated Chest: Moderate wheezing, Diminished BS b/l, no crackles. mild rhonchi Heart : S1S2+ Sinus tachycardia Abd: Soft, NT a/p 1. Severe sepsis 2. Acute hypoxic resp failure 3. Acute VDRF 4. Acute COPD / Reactive airway disease exacerbation 5. Acute MLL pneumonia - mostly bacterial Broad spec abx Zosyn, Vanc and Levaquin Sedation Repeat ABG Duoneb IV steroids Talked to the pt's grand daughter at bed side and explained to her about current care 6. Ovaraian cancer 7. ?? Mets in lungs Reviewed CT of chest concerning for mets Will obtain medical records from [facility] Spent 60 minutes critical care time on this patient
[2017-11-03] MEDS: FentaNYL (PF) 1,000 MCG in 0.9 % Sodium Chloride 80 ML IVC SCH ×2 (08:35→17:54)
[2017-11-03] MEDS: Ipratropium/Albuterol Neb 3 ML IH SCH ×4 (08:53→20:02)
--- NOTE | 2017-11-03 09:57 | Pulmonology Consult Note ---
<Genaro Howard W - Last Filed: 11/03/17 12:27> Date of Encounter: 11/03/17 Medications and Allergies Albuterol Sulfate [Ventolin Hfa] 1 puff IH DAILY PRN 11/02/17 [History] Citalopram Hydrobromide [Citalopram HBr] 40 mg PO DAILY 11/02/17 [History] Lisinopril [Zestril] 40 mg PO DAILY 11/02/17 [History] Rucaparib Camsylate [Rubraca] 30 mg PO DAILY 11/02/17 [History] 3 Allergy/AdvReac Type Severity Reaction Status Date / Time No Known Allergies Allergy Verified 11/02/17 18:12 All Systems: The remainder of the systems were reviewed and are negative Physical Examination Vital Signs: Vital Signs, Last 4 Hours Pulse Resp BP Pulse Ox 11/03/17 09:49 20 117/63 96 11/03/17 09:00 120 21 109/61 97 11/03/17 08:53 20 124/64 98 11/03/17 08:00 122 21 126/65 100 11/03/17 07:00 122 19 141/71 97 11/03/17 06:38 26 134/67 95 11/03/17 06:00 118 18 113/62 100 Ventilator Settings Ventilator Settings: Ventilator Settings, Last 8 Hours Ventilator Mode VC+ Ventilator Mode VC+ Ventilator Mode VC+ Ventilator Mode VC+ Ventilator Mode VC+ Ventilator Mode VC+ Ventilator Mode VC+ Ventilator Mode VC+ Ventilator Mode VC+ Ventilator Mode VC+ Ventilator Mode VC+ Ventilator Mode VC+ Ventilator Mode VC+ Ventilator Tidal Volume 400 Setting Ventilator Tidal Volume 400 Setting Ventilator Tidal Volume 400 Setting Ventilator Tidal Volume 400 Setting Ventilator Tidal Volume 400 Setting Ventilator Tidal Volume 400 Setting Ventilator Tidal Volume 400 Setting Ventilator Tidal Volume 400 Setting Ventilator Tidal Volume 400 Setting Ventilator Tidal Volume 400 Setting Ventilator Tidal Volume 400 Setting Ventilator Tidal Volume 400 Setting Ventilator Tidal Volume 400 Setting Ventilator Respiratory Rate 20 Setting Ventilator Respiratory Rate 20 Setting Ventilator Respiratory Rate 20 Setting Ventilator Respiratory Rate 18 Setting Ventilator Respiratory Rate 18 Setting Ventilator Respiratory Rate 18 Setting Ventilator Respiratory Rate 18 Setting Ventilator Respiratory Rate 18 Setting Ventilator Respiratory Rate 18 Setting Ventilator Respiratory Rate 18 Setting Ventilator Respiratory Rate 18 Setting Ventilator Respiratory Rate 18 Setting Ventilator Respiratory Rate 18 Setting Actual Respiratory Rate 20 Actual Respiratory Rate 20 Actual Respiratory Rate 20 Actual Respiratory Rate 21 Actual Respiratory Rate 19 Actual Respiratory Rate 21 Actual Respiratory Rate 18 Actual Respiratory Rate 21 Actual Respiratory Rate 18 Actual Respiratory Rate 18 Actual Respiratory Rate 18 Actual Respiratory Rate 22 Actual Respiratory Rate 18 Positive End Expiratory 5 Pressure Positive End Expiratory 5 Pressure Positive End Expiratory 5 Pressure Positive End Expiratory 5 Pressure Positive End Expiratory 5 Pressure Positive End Expiratory 5 Pressure Positive End Expiratory 5 Pressure Positive End Expiratory 5 Pressure Positive End Expiratory 5 Pressure Positive End Expiratory 5 Pressure Positive End Expiratory 5 Pressure Positive End Expiratory 5 Pressure Positive End Expiratory 5 Pressure Peak Inspiratory Airway 31 Pressure Peak Inspiratory Airway 21 Pressure Peak Inspiratory Airway 20 Pressure Peak Inspiratory Airway 20 Pressure Peak Inspiratory Airway 20 Pressure Peak Inspiratory Airway 22 Pressure Peak Inspiratory Airway 21 Pressure Peak Inspiratory Airway 20 Pressure Peak Inspiratory Airway 21 Pressure Peak Inspiratory Airway 20 Pressure Peak Inspiratory Airway 20 Pressure Peak Inspiratory Airway 22 Pressure Peak Inspiratory Airway 21 Pressure Results - Laboratory Findings CBC and BMP: 11/03/17 04:15 11/03/17 10:42 ABG ABG pH 7.21 pH Units (7.32-7.45) L 11/03/17 02:45 ABG pCO2 51 mmHg (35-45) H 11/03/17 02:45 ABG pO2 78 mmHg (85-104) L 11/03/17 02:45 ABG O2 Saturation 92 % (95-98) L 11/03/17 02:45 PT/INR, D-dimer PT 15.8 Seconds (9.4-12.1) H 11/02/17 18:42 Abnormal lab findings: Abnormal lab results WBC 16.6 K/mcL (4.3-11.1) H 11/03/17 04:15 RBC 3.51 M/mcL (3.82-4.97) L 11/03/17 04:15 Hct 34.5 % (35.3-44.9) L 11/03/17 04:15 MCH 33.9 pg (28.0-33.3) H 11/03/17 04:15 RDW 14.8 % (11.5-14.5) H 11/03/17 04:15 Plt Count 139 K/mcL (140-400) L 11/03/17 04:15 Band Neutrophils % 15.0 % (0-4) H 11/03/17 04:15 Metamyelocytes % 1.0 % (0) H 11/03/17 04:15 Neutrophils # 13.8 K/mcL (1.6-8.9) H 11/03/17 04:15 Dohle Bodies Present (Not Present) A 11/03/17 04:15 PT 15.8 Seconds (9.4-12.1) H 11/02/17 18:42 ABG pH 7.21 pH Units (7.32-7.45) L 11/03/17 02:45 ABG pCO2 51 mmHg (35-45) H 11/03/17 02:45 ABG pO2 78 mmHg (85-104) L 11/03/17 02:45 ABG O2 Saturation 92 % (95-98) L 11/03/17 02:45 ABG Base Excess -7 mEq/L (-2 to 3) L 11/03/17 02:45 Chloride 110 mEq/L (98-107) H 11/03/17 04:15 Carbon Dioxide 20 mEq/L (23-29) L 11/03/17 04:15 BUN 31 mg/dL (8-23) H 11/03/17 04:15 Creatinine 1.66 mg/dL (0.60-1.20) H 11/03/17 04:15 Est GFR ( Amer) 36 (> 60) L 11/03/17 04:15 Est GFR (Non-Af Amer) 30 (> 60) L 11/03/17 04:15 Glucose 168 mg/dL (70-105) H 11/03/17 04:15 POC Glucose 220 mg/dL (58-89) H 11/02/17 21:50 Hemoglobin A1c 5.8 % (-5.6) H 11/02/17 22:40 Calcium 7.2 mg/dL (8.6-10.3) L 11/03/17 04:15 Phosphorus 1.6 mg/dL (2.7-4.5) L 11/02/17 18:42 Magnesium 1.3 mg/dL (1.6-2.6) L 11/02/17 18:42 Total Bilirubin 1.2 mg/dL (0.3-1.0) H 11/02/17 18:42 Troponin I 0.05 ng/mL (< 0.04) H* 11/02/17 18:42 B-Natriuretic Peptide 112 pg/mL (Less than 100) H 11/02/17 18:42 Ur Specimen Adequacy See below A 11/02/17 20:24 Urine Clarity Turbid (Clear) A 11/02/17 20:24 Ur Specific [place] 1.030 (1.010-1.025) H 11/02/17 20:24 Urine Protein >=300 mg/dL (Neg-Trace) H 11/02/17 20:24 Urine Ketones Trace mg/dL (Negative) H 11/02/17 20:24 Urine Blood Large (Negative) H 11/02/17 20:24 Urine Bilirubin Small (Negative) H 11/02/17 20:24 Urine Microscopic WBC 5-15 per hpf (0-3) H 11/02/17 20:24 Ur Squamous Epith Cells Many per lpf (None-Few) H 11/02/17 20:24 Amorphous Sediment Many (Few) H 11/02/17 20:24 Granular Casts Few per lpf (None Seen) H 11/02/17 20:24 Influenza Type B (PCR) DETECTED (Not Detect) A 11/03/17 03:45 - Microbiology Findings Microbiology Findings: Microbiology, Last 48 Hours 11/03/17 03:45 Sputum Culture - Preliminary Sputum 11/03/17 03:45 Legionella Antigen - Final Urine,Clean Catch Streptococcus pneumoniae Antigen (M - Final - Clinical Findings Intake & Output: Intake & Output 11/02/17 11/03/17 11/03/17 23:59 07:59 15:59 Intake Total 1507.5 / 1607.5 1310 / 1310 100 / 100 Output Total 100 / 100 300 / 300 Balance 1407.5 / 1507.5 1010 / 1010 100 / 100 Weight 71.9 kg 78.3 kg Consult Discharge Plan - Plan Referrals: Chato Guardado, COUNTRY SALES MANAGER [Primary Care Provider] - - Attending Attestation I examined this patient and my medical decision-making was reviewed with the Resident Physician. I agree with the documented findings, disposition and treatment plan as described except to the extent set forth below. We independently had [id number] contact with the patient Patient seen and examined at bedside Labs, radiology, chart personally reviewed. Management was reviewed during multidisciplinary critical care rounds. 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 head CT no acute process Stop Benzo start prcedex cont fentanyl. SAT tomorrow. Pulm: Acute hypoxic respiratory failure requiring MV.s/t to Multifocal PNA. Suspected underlying COPD. Vent adjusted to decrease PEEPi. with overall acceptable gas exchange. No t candidate for SBT today try again tomorrow. Cards: Mild tachycardia possibly infectious related. BP stable. no pressor requirement. Mild trop elevation likely demand will trend and consider ECHO FEN-GI: Start enteral nutrition per dietary recs. Gi prophylaxis given Renal: Suspected RUSTY but no recent baseline. UOP and sCr monitored. renal dose all meds ID: [id number] PNA treating for possible bacterial coinfection. plan to deescelate based upon cultures. Heme/Onc: Chemical DVT prophylaxis. Active ovarian cancer with METS follows at [facility] records pending. Endo: Glucose Monitored Integ/MSK: Skin Care per routine ICU Nursing Protocol to prevent ulcers. Lines: All lines examined without evidence of infection : Dispo: ICU for vent need CODE: DNAR this was confirmed on phone conversation with the next of kin/POA her daughter Sara who I updated extensively on mother's current condition <Paris Wright - Last Filed: 11/03/17 13:07> Date of Encounter: 11/03/17 Time of Encounter: 08:00 Assessment and Plan (1) Severe sepsis Current Visit: Yes Status: Acute Severe sepsis secondary to multifocal pneumonia and influenza B. On presentation, Patient had an elevated lactate acid, tachycardia, tachypnea, leukocytosis, fever, and source of infection. Lactic acid is now within normal limits. Patient is still tachycardic and ventilated. She is afebrile. White blood cell count has decreased. Legionella and strep pneumoniae name negative and urine. Sputum culture growing gram-positive. Plan: - Continue vancomycin, Zosyn, Levaquin (day 1) - continue Tamiflu day 1 -Blood culture pending - final sputum culture pending (2) Acute respiratory failure Current Visit: Yes Status: Acute Acute respiratory failure secondary to multifocal pneumonia and influenza B. Initially on BiPAP in the ED but required intubation. Most recent ABG showed pH 7.21, CO2 51, O2 78, CO3 23. Plan: - continue ventilator support - sedation: initiate Precedex, continue Fentanyl d/c Versed - Albuterol every 2 hours prn - Solu-Medrol 40 every 8H - Diet: start Tube feeds, low SSI Qualifiers: Respiratory failure complication: hypoxia Qualified Code(s): J96.01 - Acute respiratory failure with hypoxia (3) Multifocal pneumonia Current Visit: Yes Status: Acute See plan above. We will continue vancomycin, Zosyn, and Levaquin. (4) Hyperglycemia Current Visit: Yes Status: Acute A1c= 5.8, no diabetes. Currently on SSI low (5) Ovarian cancer Current Visit: Yes Status: Acute Ovarian cancer with metastasis. Currently being treated in [place]. Patient is on chemotherapy agents. Qualifiers: Laterality: unspecified laterality Qualified Code(s): C56.9 - Malignant neoplasm of unspecified ovary (6) CAD (coronary artery disease) Current Visit: Yes Status: Chronic Hx of CAD with stents. Elevated troponins with a max of 0.05. Continue to trend. Most likely secondary to demand ischemia from hypoxia. Qualifiers: Coronary Disease-Associated Artery/Lesion type: [place] artery [place] vs. transplanted heart: [place] heart Associated angina: angina presence unspecified Qualified Code(s): I25.10 - Atherosclerotic heart disease of [place] coronary artery without angina pectoris (7) DVT prophylaxis Current Visit: Yes Status: Acute Switch from Lovenox to heparin secondary to acute renal failure. (8) Influenza B Current Visit: Yes Status: Acute Started Tamiflu. (9) RUSTY (acute kidney injury) Current Visit: Yes Status: Acute Elevated creatinine. Unsure baseline as patient has not been to this hospital in 2 years. Baseline 2 years ago was within normal limits. History of Present Illness Consult date: 11/03/17 Requesting physician: Ian Lopez Reason for consult: hypoxemia Chief complaint: SOB History of present illness: Ms. Hooper is a 77 year old female with past medical history of CAD with stents , HTN, and ovarian cancer with mets presented to the ED with SOB and patient was found to be in acute respiratory failure 2/2 influenza B and multifocial pneumonia. Patient presented to the ED with shortness of breath for the past week that worsened with an associated nonproductive cough. Patient is tachycardic, patient neck, hypertensive and febrile with a TMax of 103.1F. patient's labs showed leukocytosis, RUSTY with a creatinine of 1.52 and lactic acid= 4.1. Patient was initially placed on BiPAP and an ABG showed respiratory alkalosis. Patient was intubated and transferred to the ICU. CT of the chest showed multifocal pneumonia. Patient was resuscitated with fluids for sepsis. Patient is currently intubated and no family present so all information is obtained from records. Patient is currently sedated on Versed and fentanyl and is not responding to commands. Past Med Surg Social Fam HX - Past Medical History Medical history: cancer (ovarian cancer with mets ), COPD, hyperlipidemia, hypertension Psychiatric history: no psych history - Social History Smoking Status: Former smoker Smokeless Tobacco Status: No Alcohol use: none Drug use: none ROS unobtainable: due to endotracheal tube All Systems: The remainder of the systems were reviewed and are negative Physical Examination Vital Signs: Vital Signs, Last 4 Hours Pulse Resp BP Pulse Ox 11/03/17 09:49 20 117/63 96 11/03/17 09:00 120 21 109/61 97 11/03/17 08:53 20 124/64 98 11/03/17 08:00 122 21 126/65 100 11/03/17 07:00 122 19 141/71 97 11/03/17 06:38 26 134/67 95 11/03/17 06:00 118 18 113/62 100 Constitutional: intubated and resting calmly, Head: Normocephalic, atraumatic Heart: tachycardic, regular rhythm, no murmurs Lungs: Scattered wheezing throughout, intubated on ventilator Abdomen: Soft, nondistended, nontender, no guarding or rigidity. Extremities: No edema, No clubbing radial pulse +2/4, capillary refill <2sec. Skin: Skin warm and dry, no lesions, no rashes, no jaundice Neurologic: currently not responding to commands, not opening eyes to verbal stimuli, not withdrawing to painful stimuli LInes: PIV, med port Ventilator Settings Ventilator Settings: Ventilator Settings, Last 8 Hours Ventilator Mode VC+ Ventilator Mode VC+ Ventilator Mode VC+ Ventilator Mode VC+ Ventilator Mode VC+ Ventilator Mode VC+ Ventilator Mode VC+ Ventilator Mode VC+ Ventilator Mode VC+ Ventilator Mode VC+ Ventilator Mode VC+ Ventilator Mode VC+ Ventilator Mode VC+ Ventilator Tidal Volume 400 Setting Ventilator Tidal Volume 400 Setting Ventilator Tidal Volume 400 Setting Ventilator Tidal Volume 400 Setting Ventilator Tidal Volume 400 Setting Ventilator Tidal Volume 400 Setting Ventilator Tidal Volume 400 Setting Ventilator Tidal Volume 400 Setting Ventilator Tidal Volume 400 Setting Ventilator Tidal Volume 400 Setting Ventilator Tidal Volume 400 Setting Ventilator Tidal Volume 400 Setting Ventilator Tidal Volume 400 Setting Ventilator Respiratory Rate 20 Setting Ventilator Respiratory Rate 20 Setting Ventilator Respiratory Rate 20 Setting Ventilator Respiratory Rate 18 Setting Ventilator Respiratory Rate 18 Setting Ventilator Respiratory Rate 18 Setting Ventilator Respiratory Rate 18 Setting Ventilator Respiratory Rate 18 Setting Ventilator Respiratory Rate 18 Setting Ventilator Respiratory Rate 18 Setting Ventilator Respiratory Rate 18 Setting Ventilator Respiratory Rate 18 Setting Ventilator Respiratory Rate 18 Setting Actual Respiratory Rate 20 Actual Respiratory Rate 20 Actual Respiratory Rate 20 Actual Respiratory Rate 21 Actual Respiratory Rate 19 Actual Respiratory Rate 21 Actual Respiratory Rate 18 Actual Respiratory Rate 21 Actual Respiratory Rate 18 Actual Respiratory Rate 18 Actual Respiratory Rate 18 Actual Respiratory Rate 22 Actual Respiratory Rate 18 Positive End Expiratory 5 Pressure Positive End Expiratory 5 Pressure Positive End Expiratory 5 Pressure Positive End Expiratory 5 Pressure Positive End Expiratory 5 Pressure Positive End Expiratory 5 Pressure Positive End Expiratory 5 Pressure Positive End Expiratory 5 Pressure Positive End Expiratory 5 Pressure Positive End Expiratory 5 Pressure Positive End Expiratory 5 Pressure Positive End Expiratory 5 Pressure Positive End Expiratory 5 Pressure Peak Inspiratory Airway 31 Pressure Peak Inspiratory Airway 21 Pressure Peak Inspiratory Airway 20 Pressure Peak Inspiratory Airway 20 Pressure Peak Inspiratory Airway 20 Pressure Peak Inspiratory Airway 22 Pressure Peak Inspiratory Airway 21 Pressure Peak Inspiratory Airway 20 Pressure Peak Inspiratory Airway 21 Pressure Peak Inspiratory Airway 20 Pressure Peak Inspiratory Airway 20 Pressure Peak Inspiratory Airway 22 Pressure Peak Inspiratory Airway 21 Pressure Results - Laboratory Findings CBC and BMP: 11/03/17 04:15 11/03/17 10:42 ABG ABG pH 7.21 pH Units (7.32-7.45) L 11/03/17 02:45 ABG pCO2 51 mmHg (35-45) H 11/03/17 02:45 ABG pO2 78 mmHg (85-104) L 11/03/17 02:45 ABG O2 Saturation 92 % (95-98) L 11/03/17 02:45 PT/INR, D-dimer PT 15.8 Seconds (9.4-12.1) H 11/02/17 18:42 Abnormal lab findings: Abnormal lab results WBC 16.6 K/mcL (4.3-11.1) H 11/03/17 04:15 RBC 3.51 M/mcL (3.82-4.97) L 11/03/17 04:15 Hct 34.5 % (35.3-44.9) L 11/03/17 04:15 MCH 33.9 pg (28.0-33.3) H 11/03/17 04:15 RDW 14.8 % (11.5-14.5) H 11/03/17 04:15 Plt Count 139 K/mcL (140-400) L 11/03/17 04:15 Band Neutrophils % 15.0 % (0-4) H 11/03/17 04:15 Metamyelocytes % 1.0 % (0) H 11/03/17 04:15 Neutrophils # 13.8 K/mcL (1.6-8.9) H 11/03/17 04:15 Dohle Bodies Present (Not Present) A 11/03/17 04:15 PT 15.8 Seconds (9.4-12.1) H 11/02/17 18:42 ABG pH 7.21 pH Units (7.32-7.45) L 11/03/17 02:45 ABG pCO2 51 mmHg (35-45) H 11/03/17 02:45 ABG pO2 78 mmHg (85-104) L 11/03/17 02:45 ABG O2 Saturation 92 % (95-98) L 11/03/17 02:45 ABG Base Excess -7 mEq/L (-2 to 3) L 11/03/17 02:45 Chloride 110 mEq/L (98-107) H 11/03/17 04:15 Carbon Dioxide 20 mEq/L (23-29) L 11/03/17 04:15 BUN 31 mg/dL (8-23) H 11/03/17 04:15 Creatinine 1.66 mg/dL (0.60-1.20) H 11/03/17 04:15 Est GFR ( Amer) 36 (> 60) L 11/03/17 04:15 Est GFR (Non-Af Amer) 30 (> 60) L 11/03/17 04:15 Glucose 168 mg/dL (70-105) H 11/03/17 04:15 POC Glucose 220 mg/dL (58-89) H 11/02/17 21:50 Hemoglobin A1c 5.8 % (-5.6) H 11/02/17 22:40 Calcium 7.2 mg/dL (8.6-10.3) L 11/03/17 04:15 Phosphorus 1.6 mg/dL (2.7-4.5) L 11/02/17 18:42 Magnesium 1.3 mg/dL (1.6-2.6) L 11/02/17 18:42 Total Bilirubin 1.2 mg/dL (0.3-1.0) H 11/02/17 18:42 Troponin I 0.05 ng/mL (< 0.04) H* 11/02/17 18:42 B-Natriuretic Peptide 112 pg/mL (Less than 100) H 11/02/17 18:42 Ur Specimen Adequacy See below A 11/02/17 20:24 Urine Clarity Turbid (Clear) A 11/02/17 20:24 Ur Specific [place] 1.030 (1.010-1.025) H 11/02/17 20:24 Urine Protein >=300 mg/dL (Neg-Trace) H 11/02/17 20:24 Urine Ketones Trace mg/dL (Negative) H 11/02/17 20:24 Urine Blood Large (Negative) H 11/02/17 20:24 Urine Bilirubin Small (Negative) H 11/02/17 20:24 Urine Microscopic WBC 5-15 per hpf (0-3) H 11/02/17 20:24 Ur Squamous Epith Cells Many per lpf (None-Few) H 11/02/17 20:24 Amorphous Sediment Many (Few) H 11/02/17 20:24 Granular Casts Few per lpf (None Seen) H 11/02/17 20:24 Influenza Type B (PCR) DETECTED (Not Detect) A 11/03/17 03:45 - Microbiology Findings Microbiology Findings: Microbiology, Last 48 Hours 11/03/17 03:45 Sputum Culture - Preliminary Sputum 11/03/17 03:45 Legionella Antigen - Final Urine,Clean Catch Streptococcus pneumoniae Antigen (M - Final - Clinical Findings Intake & Output: Intake & Output 11/02/17 11/03/17 11/03/17 23:59 07:59 15:59 Intake Total 1507.5 / 1607.5 1310 / 1310 100 / 100 Output Total 100 / 100 300 / 300 Balance 1407.5 / 1507.5 1010 / 1010 100 / 100 Weight 71.9 kg 78.3 kg
[2017-11-03 11:10] LABS: Magnesium 1.7 mg/dL (1.6-2.6); Phosphorous 3.3 mg/dL (2.7-4.5)
[2017-11-03 11:40] LABS: ABG Base Excess -6 mEq/L (-2 to 3); ABG HCO3 20 mEq/L (21-27); ABG Oxygen Saturation 96 % (95-98); ABG PCO2 42 mmHg (35-45); ABG PH 7.28 pH Units (7.32-7.45); ABG PO2 90 mmHg (85-104); ABG TCO2 21 mEq/L (20-26); Blood Gas Modality VC; Blood Gas PEEP 5 cm H2O; Blood Gas Respiration Rate 20; Blood Gas VT 400 cc
[2017-11-03] MEDS: Insulin LISPRO 300 UNITS/3 ML VIAL SQ SCH ×3 (11:41→21:01)
[2017-11-03] MEDS: Dexmedetomidine HCl 400 MCG/100 ML MLS IVC SCH ×2 (12:08→21:05)
[2017-11-03] MEDS: *HR* Heparin 5,000 UNIT/ML VIAL SQ SCH ×2 (12:52→21:01)
[2017-11-03] MEDS: Propofol 500 MG/50 ML INFUS..BTL IVC SCH (15:45)
--- NOTE | 2017-11-03 19:31 | Electrocardiograph Report ---
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
[2017-11-03] MEDS ORDERED: 0.9 % Sodium Chloride 250 ML ONE (20:41)
[2017-11-04] MEDS: MethylPREDNISolone 40 MG/ML VIAL IVP SCH ×4 (00:19→23:37)
[2017-11-04] MEDS: Lacri-Lube 3.5 GM TUBE BOTH EYES SCH ×7 (00:21→23:37)
[2017-11-04] MEDS: Insulin LISPRO 300 UNITS/3 ML VIAL SQ SCH ×7 (00:21→23:38)
[2017-11-04] MEDS: Ipratropium/Albuterol Neb 3 ML IH SCH ×7 (00:56→23:26)
[2017-11-04] MEDS: FentaNYL (PF) 1,000 MCG in 0.9 % Sodium Chloride 80 ML IVC SCH (03:56)
[2017-11-04 04:09] LABS: Basophils % 0.2 %; Hematocrit 30.8 % (35.3-44.9); Hemoglobin 10.6 g/dL (11.5-15.4); Immature Granulocytes % 0.4 % (0-4); Lymphocytes # 0.4 K/mcL (0.6-4.6); Lymphocytes % 3.1 %; Mean Corpuscular HGB Conc 34.4 g/dL (31.6-35.5); Mean Corpuscular Hemoglobin 33.4 pg (28.0-33.3); Mean Corpuscular Volume 97.2 fL (83.0-100.0); Mean Platelet Volume 10.6 fL (9.4-12.4); Monocytes # 0.8 K/mcL (0.0-1.3); Monocytes % 7.4 %; Neutrophils # 10.1 K/mcL (1.6-8.9); Platelet Count 150 K/mcL (140-400); Red Blood Count 3.17 M/mcL (3.82-4.97); Red Cell Distribution Width 15.3 % (11.5-14.5); Segmented Neutrophils % 88.9 %
[2017-11-04 04:26] LABS: Potassium 3.7 mEq/L (3.5-5.1)
[2017-11-04 04:44] LABS: Dohle Bodies Present (Not Present); Platelet Estimate Normal (Normal); Reactive Lymphocytes Present (Not Present); Toxic Granulation Present (Not Present)
[2017-11-04] MEDS ORDERED: 0.9 % Sodium Chloride 500 ML IVC ONE (04:52)
[2017-11-04] MEDS: *HR* Heparin 5,000 UNIT/ML VIAL SQ SCH ×3 (05:02→21:02)
[2017-11-04 05:11] LABS: ABG Base Excess -6 mEq/L (-2 to 3); ABG HCO3 21 mEq/L (21-27); ABG Oxygen Saturation 93 % (95-98); ABG PCO2 45 mmHg (35-45); ABG PH 7.27 pH Units (7.32-7.45); ABG PO2 74 mmHg (85-104); ABG TCO2 22 mEq/L (20-26); Blood Gas Modality VC; Blood Gas PEEP 5 cm H2O; Blood Gas Respiration Rate 20; Blood Gas VT 400 cc
[2017-11-04] MEDS ORDERED: *HR* Enoxaparin 30 MG/0.3 ML SYRINGE SQ SCH (06:00)
[2017-11-04] MEDS ORDERED: Aminoglycoside Consult 1 EACH MC ONE (07:28)
[2017-11-04] MEDS: Piperacillin/Tazobactam 3.375 GM in 0.9 % Sodium Chloride Mini Bag 100 ML IVPB SCH (07:42)
[2017-11-04] MEDS: Dexmedetomidine HCl 400 MCG/100 ML MLS IVC SCH ×3 (07:43→22:16)
[2017-11-04] MEDS: Chlorhexidine Rinse 15 ML MOUTHWASH MM SCH ×2 (07:44→20:04)
[2017-11-04] MEDS: Pantoprazole 40 MG VIAL IVP SCH (07:44)
[2017-11-04] MEDS: Oseltamivir Phosphate 30 MG CAPSULE PO SCH (07:46)
--- NOTE | 2017-11-04 09:08 | Pulmonology Progress Note ---
<Paris Wright - Last Filed: 11/04/17 11:42> Date of Encounter: 11/04/17 Time of Encounter: 09:08 Assessment and Plan (1) Severe sepsis Current Visit: Yes Status: Acute Severe sepsis secondary to multifocal pneumonia and influenza B. On presentation, Patient had an elevated lactate acid, tachycardia, tachypnea, leukocytosis, fever, and source of infection. Lactic acid is now within normal limits. Patient is still tachycardic and ventilated. She is afebrile. White blood cell count has decreased. Legionella and strep pneumoniae name negative and urine. Sputum culture growing staph aureus. Plan: - Begin Cefazolin 1g Q12 hrs - LR 500ml bolus - Stop Vancomycin, Zosyn and levoquin - continue Tamiflu day 2 -Blood culture pending - sputum culture staph aureus, sensitivities pending (2) Acute respiratory failure Current Visit: Yes Status: Acute Acute respiratory failure secondary to multifocal pneumonia and influenza B. Initially on BiPAP in the ED but required intubation. Most recent ABG showed pH 7.21, CO2 51, O2 78, CO3 23. ABG today showed, Resp acidosis and metabolic acidosis non-anion gap today. Plan: - continue ventilator support - sedation: continue Precedex Fentanyl - Albuterol every 2 hours prn, Duonebs Q4hr lidia - Solu-Medrol 40 every 8H - Diet: start Tube feeds, med SSI Qualifiers: Respiratory failure complication: hypoxia Qualified Code(s): J96.01 - Acute respiratory failure with hypoxia (3) Multifocal pneumonia Current Visit: Yes Status: Acute 2/2 to staph aureus. See plan above. We will stop vancomycin, Zosyn and Levaquin. We will begin cefazolin 1 g every 12 hours renally dosed for decreased creatinine clearance. (4) Hyperglycemia Current Visit: Yes Status: Acute A1c= 5.8, no diabetes. Increase to medium SSI (5) Ovarian cancer Current Visit: Yes Status: Acute Ovarian cancer with metastasis. Currently being treated in [place]. Patient is on chemotherapy agents. Qualifiers: Laterality: unspecified laterality Qualified Code(s): C56.9 - Malignant neoplasm of unspecified ovary (6) CAD (coronary artery disease) Current Visit: Yes Status: Chronic Hx of CAD with stents. Elevated troponins with a max of 0.05. Last troponin = 0.01. Most likely secondary to demand ischemia from hypoxia Qualifiers: Coronary Disease-Associated Artery/Lesion type: [place] artery [place] vs. transplanted heart: [place] heart Associated angina: angina presence unspecified Qualified Code(s): I25.10 - Atherosclerotic heart disease of [place] coronary artery without angina pectoris (7) Influenza B Current Visit: Yes Status: Acute Continue tamiflu (8) RUSTY (acute kidney injury) Current Visit: Yes Status: Acute Elevated creatinine. Unsure baseline as patient has not been to this hospital in 2 years. Baseline 2 years ago was within normal limits. Plan: - urine Na, creatinine, Urea, eosinophil - stopping Vancomycin (9) DVT prophylaxis Current Visit: Yes Status: Acute Heparin SQ Subjective Principal diagnosis: multifocal pneumonia and influneza B Interval history: Ms. Hooper is a 77 year old female with past medical history of CAD with stents , HTN, and ovarian cancer with mets presented to the ED with SOB and patient was found to be in acute respiratory failure 2/2 influenza B and multifocial pneumonia. Patient is currently sedated on Precedex with fentanyl and is not responding to commands. Unable to obtain ROS as patient is intubated. Objective PUL Vital signs: Last Vital Signs Temp 99.1 F 11/04/17 07:45 Pulse 101 11/04/17 07:30 Resp 22 11/04/17 07:35 BP 107/61 11/04/17 07:35 Pulse Ox 96 11/04/17 07:35 Constitutional: intubated and resting calmly, Head: Normocephalic, atraumatic Heart: tachycardic, regular rhythm, no murmurs Lungs: rhonchi and crackles, intubated on ventilator Abdomen: Soft, nondistended, nontender, no guarding or rigidity. Extremities: No edema, No clubbing pedial pulse +2/4, capillary refill <2sec. Skin: Skin warm and dry, no lesions, no rashes, no jaundice Neurologic: currently not responding to commands, not opening eyes to verbal stimuli, LInes: PIV, med port Ventilator Settings Ventilator Settings: Ventilator Settings, Last 8 Hours Ventilator Mode VC+ Ventilator Mode VC+ Ventilator Mode VC+ Ventilator Mode VC+ Ventilator Mode VC+ Ventilator Mode VC+ Ventilator Mode VC+ Ventilator Mode VC+ Ventilator Mode VC+ Ventilator Mode VC+ Ventilator Mode VC+ Ventilator Tidal Volume 400 Setting Ventilator Tidal Volume 400 Setting Ventilator Tidal Volume 400 Setting Ventilator Tidal Volume 400 Setting Ventilator Tidal Volume 400 Setting Ventilator Tidal Volume 400 Setting Ventilator Tidal Volume 400 Setting Ventilator Tidal Volume 400 Setting Ventilator Tidal Volume 400 Setting Ventilator Tidal Volume 400 Setting Ventilator Tidal Volume 400 Setting Ventilator Respiratory Rate 20 Setting Ventilator Respiratory Rate 20 Setting Ventilator Respiratory Rate 20 Setting Ventilator Respiratory Rate 20 Setting Ventilator Respiratory Rate 20 Setting Ventilator Respiratory Rate 20 Setting Ventilator Respiratory Rate 20 Setting Ventilator Respiratory Rate 20 Setting Ventilator Respiratory Rate 20 Setting Ventilator Respiratory Rate 20 Setting Ventilator Respiratory Rate 20 Setting Actual Respiratory Rate 22 Actual Respiratory Rate 20 Actual Respiratory Rate 22 Actual Respiratory Rate 20 Actual Respiratory Rate 21 Actual Respiratory Rate 29 Actual Respiratory Rate 22 Actual Respiratory Rate 23 Actual Respiratory Rate 24 Actual Respiratory Rate 24 Positive End Expiratory 5 Pressure Positive End Expiratory 5 Pressure Positive End Expiratory 5 Pressure Positive End Expiratory 5 Pressure Positive End Expiratory 5 Pressure Positive End Expiratory 5 Pressure Positive End Expiratory 5 Pressure Positive End Expiratory 5 Pressure Positive End Expiratory 5 Pressure Positive End Expiratory 5 Pressure Positive End Expiratory 5 Pressure Peak Inspiratory Airway 14 Pressure Peak Inspiratory Airway 21 Pressure Peak Inspiratory Airway 16 Pressure Peak Inspiratory Airway 21 Pressure Peak Inspiratory Airway 12 Pressure Peak Inspiratory Airway 16 Pressure Peak Inspiratory Airway 12 Pressure Peak Inspiratory Airway 15 Pressure Peak Inspiratory Airway 18 Pressure Peak Inspiratory Airway 18 Pressure Results - Laboratory Findings CBC and BMP: 11/04/17 03:50 11/04/17 03:50 ABG ABG pH 7.27 pH Units (7.32-7.45) L 11/04/17 05:08 ABG pCO2 45 mmHg (35-45) 11/04/17 05:08 ABG pO2 74 mmHg (85-104) L 11/04/17 05:08 ABG O2 Saturation 93 % (95-98) L 11/04/17 05:08 PT/INR, D-dimer PT 15.8 Seconds (9.4-12.1) H 11/02/17 18:42 Abnormal lab findings: Abnormal lab results WBC 11.4 K/mcL (4.3-11.1) H 11/04/17 03:50 RBC 3.17 M/mcL (3.82-4.97) L 11/04/17 03:50 Hgb 10.6 g/dL (11.5-15.4) L 11/04/17 03:50 Hct 30.8 % (35.3-44.9) L 11/04/17 03:50 MCH 33.4 pg (28.0-33.3) H 11/04/17 03:50 RDW 15.3 % (11.5-14.5) H 11/04/17 03:50 Band Neutrophils % 15.0 % (0-4) H 11/03/17 04:15 Metamyelocytes % 1.0 % (0) H 11/03/17 04:15 Neutrophils # 10.1 K/mcL (1.6-8.9) H 11/04/17 03:50 Lymphocytes # 0.4 K/mcL (0.6-4.6) L 11/04/17 03:50 Reactive Lymphocytes Present (Not Present) A 11/04/17 03:50 Toxic Granulation Present (Not Present) A 11/04/17 03:50 Dohle Bodies Present (Not Present) A 11/04/17 03:50 PT 15.8 Seconds (9.4-12.1) H 11/02/17 18:42 ABG pH 7.27 pH Units (7.32-7.45) L 11/04/17 05:08 ABG pO2 74 mmHg (85-104) L 11/04/17 05:08 ABG O2 Saturation 93 % (95-98) L 11/04/17 05:08 ABG Base Excess -6 mEq/L (-2 to 3) L 11/04/17 05:08 Chloride 110 mEq/L (98-107) H 11/04/17 03:50 Carbon Dioxide 20 mEq/L (23-29) L 11/04/17 03:50 BUN 57 mg/dL (8-23) H 11/04/17 03:50 Creatinine 3.06 mg/dL (0.60-1.20) H 11/04/17 03:50 Est GFR ( Amer) 18 (> 60) L 11/04/17 03:50 Est GFR (Non-Af Amer) 15 (> 60) L 11/04/17 03:50 Glucose 199 mg/dL (70-105) H 11/04/17 03:50 POC Glucose 198 mg/dL (58-89) H 11/04/17 00:15 Hemoglobin A1c 5.8 % (-5.6) H 11/02/17 22:40 Calculated Osmolality 309 (280-300) H 11/04/17 03:50 Calcium 8.0 mg/dL (8.6-10.3) L 11/04/17 03:50 Total Bilirubin 1.2 mg/dL (0.3-1.0) H 11/02/17 18:42 Troponin I 0.05 ng/mL (< 0.04) H* 11/03/17 07:25 B-Natriuretic Peptide 112 pg/mL (Less than 100) H 11/02/17 18:42 Ur Specimen Adequacy See below A 11/02/17 20:24 Urine Clarity Turbid (Clear) A 11/02/17 20:24 Ur Specific [place] 1.030 (1.010-1.025) H 11/02/17 20:24 Urine Protein >=300 mg/dL (Neg-Trace) H 11/02/17 20:24 Urine Ketones Trace mg/dL (Negative) H 11/02/17 20:24 Urine Blood Large (Negative) H 11/02/17 20:24 Urine Bilirubin Small (Negative) H 11/02/17 20:24 Urine Microscopic WBC 5-15 per hpf (0-3) H 11/02/17 20:24 Ur Squamous Epith Cells Many per lpf (None-Few) H 11/02/17 20:24 Amorphous Sediment Many (Few) H 11/02/17 20:24 Granular Casts Few per lpf (None Seen) H 11/02/17 20:24 Influenza Type B (PCR) DETECTED (Not Detect) A 11/03/17 03:45 - Microbiology Findings Microbiology Findings: Microbiology, Last 48 Hours 11/03/17 03:45 Sputum Culture - Preliminary Sputum Staphylococcus aureus 11/03/17 03:45 Legionella Antigen - Final Urine,Clean Catch Streptococcus pneumoniae Antigen (M - Final - Clinical Findings Intake & Output: Intake & Output 11/03/17 11/04/17 11/04/17 23:59 07:59 15:59 Intake Total 485 / 485 996 / 996 Output Total 125 / 125 75 / 75 Balance 360 / 360 921 / 921 Weight 78.1 kg Consult Discharge Plan - Plan Referrals: Chato Guardado, INTERACTIVE [employer] MARKETING STRATEGIST [Primary Care Provider] - <Genaro Howard W - Last Filed: 11/04/17 13:54> Date of Encounter: 11/04/17 Objective PUL Vital signs: Last Vital Signs Temp 98.2 F 11/04/17 11:51 Pulse 102 11/04/17 12:30 Resp 25 11/04/17 12:30 BP 113/47 11/04/17 12:30 Pulse Ox 97 11/04/17 12:30 Ventilator Settings Ventilator Settings: Ventilator Settings, Last 8 Hours Ventilator Mode VC+ Ventilator Mode VC+ Ventilator Mode VC+ Ventilator Mode VC+ Ventilator Mode VC+ Ventilator Mode VC+ Ventilator Mode VC+ Ventilator Mode VC+ Ventilator Mode VC+ Ventilator Mode VC+ Ventilator Mode VC+ Ventilator Mode VC+ Ventilator Tidal Volume 400 Setting Ventilator Tidal Volume 400 Setting Ventilator Tidal Volume 400 Setting Ventilator Tidal Volume 400 Setting Ventilator Tidal Volume 400 Setting Ventilator Tidal Volume 400 Setting Ventilator Tidal Volume 400 Setting Ventilator Tidal Volume 400 Setting Ventilator Tidal Volume 400 Setting Ventilator Tidal Volume 400 Setting Ventilator Tidal Volume 400 Setting Ventilator Tidal Volume 400 Setting Ventilator Respiratory Rate 20 Setting Ventilator Respiratory Rate 20 Setting Ventilator Respiratory Rate 20 Setting Ventilator Respiratory Rate 20 Setting Ventilator Respiratory Rate 20 Setting Ventilator Respiratory Rate 20 Setting Ventilator Respiratory Rate 20 Setting Ventilator Respiratory Rate 20 Setting Ventilator Respiratory Rate 20 Setting Ventilator Respiratory Rate 20 Setting Ventilator Respiratory Rate 20 Setting Ventilator Respiratory Rate 20 Setting Actual Respiratory Rate 25 Actual Respiratory Rate 21 Actual Respiratory Rate 21 Actual Respiratory Rate 21 Actual Respiratory Rate 22 Actual Respiratory Rate 22 Actual Respiratory Rate 21 Actual Respiratory Rate 22 Actual Respiratory Rate 22 Actual Respiratory Rate 20 Actual Respiratory Rate 22 Actual Respiratory Rate 20 Positive End Expiratory 5 Pressure Positive End Expiratory 5 Pressure Positive End Expiratory 5 Pressure Positive End Expiratory 5 Pressure Positive End Expiratory 5 Pressure Positive End Expiratory 5 Pressure Positive End Expiratory 5 Pressure Positive End Expiratory 5 Pressure Positive End Expiratory 5 Pressure Positive End Expiratory 5 Pressure Positive End Expiratory 5 Pressure Positive End Expiratory 5 Pressure Peak Inspiratory Airway 24 Pressure Peak Inspiratory Airway 20 Pressure Peak Inspiratory Airway 11 Pressure Peak Inspiratory Airway 21 Pressure Peak Inspiratory Airway 16 Pressure Peak Inspiratory Airway 21 Pressure Peak Inspiratory Airway 12 Pressure Peak Inspiratory Airway 22 Pressure Peak Inspiratory Airway 14 Pressure Peak Inspiratory Airway 21 Pressure Peak Inspiratory Airway 16 Pressure Peak Inspiratory Airway 21 Pressure Results - Laboratory Findings CBC and BMP: 11/04/17 03:50 11/04/17 03:50 ABG ABG pH 7.27 pH Units (7.32-7.45) L 11/04/17 05:08 ABG pCO2 45 mmHg (35-45) 11/04/17 05:08 ABG pO2 74 mmHg (85-104) L 11/04/17 05:08 ABG O2 Saturation 93 % (95-98) L 11/04/17 05:08 PT/INR, D-dimer PT 15.8 Seconds (9.4-12.1) H 11/02/17 18:42 Abnormal lab findings: Abnormal lab results WBC 11.4 K/mcL (4.3-11.1) H 11/04/17 03:50 RBC 3.17 M/mcL (3.82-4.97) L 11/04/17 03:50 Hgb 10.6 g/dL (11.5-15.4) L 11/04/17 03:50 Hct 30.8 % (35.3-44.9) L 11/04/17 03:50 MCH 33.4 pg (28.0-33.3) H 11/04/17 03:50 RDW 15.3 % (11.5-14.5) H 11/04/17 03:50 Band Neutrophils % 15.0 % (0-4) H 11/03/17 04:15 Metamyelocytes % 1.0 % (0) H 11/03/17 04:15 Neutrophils # 10.1 K/mcL (1.6-8.9) H 11/04/17 03:50 Lymphocytes # 0.4 K/mcL (0.6-4.6) L 11/04/17 03:50 Reactive Lymphocytes Present (Not Present) A 11/04/17 03:50 Toxic Granulation Present (Not Present) A 11/04/17 03:50 Dohle Bodies Present (Not Present) A 11/04/17 03:50 PT 15.8 Seconds (9.4-12.1) H 11/02/17 18:42 ABG pH 7.27 pH Units (7.32-7.45) L 11/04/17 05:08 ABG pO2 74 mmHg (85-104) L 11/04/17 05:08 ABG O2 Saturation 93 % (95-98) L 11/04/17 05:08 ABG Base Excess -6 mEq/L (-2 to 3) L 11/04/17 05:08 Chloride 110 mEq/L (98-107) H 11/04/17 03:50 Carbon Dioxide 20 mEq/L (23-29) L 11/04/17 03:50 BUN 57 mg/dL (8-23) H 11/04/17 03:50 Creatinine 3.06 mg/dL (0.60-1.20) H 11/04/17 03:50 Est GFR ( Amer) 18 (> 60) L 11/04/17 03:50 Est GFR (Non-Af Amer) 15 (> 60) L 11/04/17 03:50 Glucose 199 mg/dL (70-105) H 11/04/17 03:50 POC Glucose 198 mg/dL (58-89) H 11/04/17 00:15 Hemoglobin A1c 5.8 % (-5.6) H 11/02/17 22:40 Calculated Osmolality 309 (280-300) H 11/04/17 03:50 Calcium 8.0 mg/dL (8.6-10.3) L 11/04/17 03:50 Total Bilirubin 1.2 mg/dL (0.3-1.0) H 11/02/17 18:42 Troponin I 0.05 ng/mL (< 0.04) H* 11/03/17 07:25 B-Natriuretic Peptide 112 pg/mL (Less than 100) H 11/02/17 18:42 Ur Specimen Adequacy See below A 11/02/17 20:24 Urine Clarity Turbid (Clear) A 11/02/17 20:24 Ur Specific [place] 1.030 (1.010-1.025) H 11/02/17 20:24 Urine Protein >=300 mg/dL (Neg-Trace) H 11/02/17 20:24 Urine Ketones Trace mg/dL (Negative) H 11/02/17 20:24 Urine Blood Large (Negative) H 11/02/17 20:24 Urine Bilirubin Small (Negative) H 11/02/17 20:24 Urine Microscopic WBC 5-15 per hpf (0-3) H 11/02/17 20:24 Ur Squamous Epith Cells Many per lpf (None-Few) H 11/02/17 20:24 Amorphous Sediment Many (Few) H 11/02/17 20:24 Granular Casts Few per lpf (None Seen) H 11/02/17 20:24 Influenza Type B (PCR) DETECTED (Not Detect) A 11/03/17 03:45 - Microbiology Findings Microbiology Findings: Microbiology, Last 48 Hours 11/03/17 03:45 Sputum Culture - Preliminary Sputum Staphylococcus aureus 11/03/17 03:45 Legionella Antigen - Final Urine,Clean Catch Streptococcus pneumoniae Antigen (M - Final - Clinical Findings Intake & Output: Intake & Output 11/03/17 11/04/17 11/04/17 23:59 07:59 15:59 Intake Total 485 / 485 996 / 996 100 / 100 Output Total 125 / 125 75 / 75 50 / 50 Balance 360 / 360 921 / 921 50 / 50 Weight 78.1 kg - Attending Attestation I examined this patient and my medical decision-making was reviewed with the Resident Physician. I agree with the documented findings, disposition and treatment plan as described except to the extent set forth below. We independently had [id number] contact with the patient Patient seen and examined at bedside Labs, radiology, chart personally reviewed. Management was reviewed during multidisciplinary critical care rounds. [employer]IRS[employer] II INSPECTOR: Remains sedated on vent; sedation currently on hold today for spontaneous awake trial. Pulm: Remains intubated on vent acceptable gas exchange (mild respiratory acidosis) today spontaneous breathing trial planned after spontaneous awake trial. Continue bronchodilators and steroids for suspected underlying obstructive lung disease Cards: Mildly hypotensive overnight which has responded to fluid challenge. Tachycardia has also improved FEN-GI: GI prophylaxis given. Continue enteral nutrition per Dietary recommendations Renal: RUSTY on CKD possibly related to prerenal azotemia and/or hypotension fluid challenge today cental urine electrolytes renal dose all medications stop nephrotoxins repeat serum creatinine early afternoon. Urine output monitored and has improved after fluids ID: Influenza B with staph aureus coinfection de-escalate antibiotics to cefazolin and Tamiflu white count continues to trend down Heme/Onc: DVT prophylaxis per routine Endo: Glucose Monitored Integ/MSK: Skin Care per routine ICU Nursing Protocol to prevent ulcers. Lines: All lines examined without evidence of infection : Dispo: Remain in ICU CODE: DNAR
[2017-11-04 10:45] LABS: Creatinine,Urine < 1 mg/dL; Sodium, Urine < 10.0 mEq/L
[2017-11-04] MEDS ORDERED: Vancomycin 500 MG in 0.9 % Sodium Chloride Mini Bag 100 ML IVPB ONE (12:00)
[2017-11-04] MEDS: ceFAZolin 1,000 MG in Water for inj. (sterile) 20 ML 10 ML IVPB SCH ×2 (12:28→23:37)
[2017-11-04] MEDS: Ringers Solution, Lactated 500 ML IVC ONE (12:40)
[2017-11-04 16:43] LABS: Calcium 8.2 mg/dL (8.6-10.3); Potassium 3.1 mEq/L (3.5-5.1)
[2017-11-04] MEDS ORDERED: Potassium Chloride Elixir 20 MEQ/15 ML UDC GTUBE ONE (17:12)
[2017-11-04] MEDS ORDERED: Ringers Solution, Lactated 1,000 ML IVC ONE (17:57)
[2017-11-04] MEDS ORDERED: Levofloxacin 750 MG/150 ML 750 MG/150 ML BAG IVPB SCH (21:00)
[2017-11-05] MEDS: Lacri-Lube 3.5 GM TUBE BOTH EYES SCH ×6 (03:09→23:53)
[2017-11-05] MEDS: Insulin LISPRO 300 UNITS/3 ML VIAL SQ SCH ×6 (03:09→23:52)
[2017-11-05 03:19] LABS: Basophils % 0.1 %; Hematocrit 31.2 % (35.3-44.9); Hemoglobin 10.7 g/dL (11.5-15.4); Immature Granulocytes % 0.6 % (0-4); Immature Platelets 4.9 % (1.1-6.1); Lymphocytes # 0.4 K/mcL (0.6-4.6); Lymphocytes % 2.9 %; Mean Corpuscular HGB Conc 34.3 g/dL (31.6-35.5); Mean Corpuscular Hemoglobin 33.8 pg (28.0-33.3); Mean Corpuscular Volume 98.4 fL (83.0-100.0); Mean Platelet Volume 11.1 fL (9.4-12.4); Monocytes # 0.9 K/mcL (0.0-1.3); Monocytes % 6.3 %; Platelet Count 152 K/mcL (140-400); Red Blood Count 3.17 M/mcL (3.82-4.97); Red Cell Distribution Width 15.4 % (11.5-14.5); Segmented Neutrophils % 90.1 %
[2017-11-05] MEDS: Ipratropium/Albuterol Neb 3 ML IH SCH ×6 (03:22→23:17)
[2017-11-05 03:38] LABS: Neutrophils # 12.3 K/mcL (1.6-8.9)
[2017-11-05 03:44] LABS: Calcium 8.2 mg/dL (8.6-10.3); Magnesium 2.8 mg/dL (1.6-2.6); Phosphorous 3.8 mg/dL (2.7-4.5); Potassium 4.1 mEq/L (3.5-5.1); Uric Acid 7.1 mg/dL (2.3-7.6)
[2017-11-05 04:50] LABS: Platelet Estimate Normal (Normal)
[2017-11-05] MEDS: *HR* Heparin 5,000 UNIT/ML VIAL SQ SCH ×3 (05:01→20:30)
[2017-11-05] MEDS: Dexmedetomidine HCl 400 MCG/100 ML MLS IVC SCH (05:01)
[2017-11-05 08:17] LABS: ABG Base Excess -7 mEq/L (-2 to 3); ABG HCO3 19 mEq/L (21-27); ABG Oxygen Saturation 97 % (95-98); ABG PCO2 38 mmHg (35-45); ABG PH 7.31 pH Units (7.32-7.45); ABG PO2 97 mmHg (85-104); ABG TCO2 20 mEq/L (20-26); Blood Gas PEEP 5 cm H2O; Blood Gas Respiration Rate 20; Blood Gas VT 400 cc
--- NOTE | 2017-11-05 08:23 | Pulmonology Progress Note ---
<AnitaGenaro W - Last Filed: 11/05/17 10:47> Date of Encounter: 11/05/17 Time of Encounter: 10:47 Objective PUL Vital signs: Last Vital Signs Temp 99.2 F 11/05/17 07:20 Pulse 118 11/05/17 09:20 Resp 30 11/05/17 09:20 BP 132/62 11/05/17 09:20 Pulse Ox 96 11/05/17 09:20 Ventilator Settings Ventilator Settings: Ventilator Settings, Last 8 Hours Ventilator Mode A/C Ventilator Mode A/C Ventilator Mode A/C Ventilator Mode A/C Ventilator Mode A/C Ventilator Mode A/C Ventilator Mode A/C Ventilator Mode A/C Ventilator Mode A/C Ventilator Tidal Volume 400 Setting Ventilator Tidal Volume 400 Setting Ventilator Tidal Volume 400 Setting Ventilator Tidal Volume 400 Setting Ventilator Tidal Volume 400 Setting Ventilator Tidal Volume 400 Setting Ventilator Tidal Volume 400 Setting Ventilator Tidal Volume 400 Setting Ventilator Tidal Volume 400 Setting Ventilator Tidal Volume 400 Setting Ventilator Respiratory Rate 20 Setting Ventilator Respiratory Rate 20 Setting Ventilator Respiratory Rate 20 Setting Ventilator Respiratory Rate 20 Setting Ventilator Respiratory Rate 20 Setting Ventilator Respiratory Rate 20 Setting Ventilator Respiratory Rate 20 Setting Ventilator Respiratory Rate 20 Setting Ventilator Respiratory Rate 20 Setting Ventilator Respiratory Rate 20 Setting Actual Respiratory Rate 33 Actual Respiratory Rate 25 Actual Respiratory Rate 27 Actual Respiratory Rate 35 Actual Respiratory Rate 27 Actual Respiratory Rate 20 Actual Respiratory Rate 27 Actual Respiratory Rate 27 Actual Respiratory Rate 20 Actual Respiratory Rate 28 Positive End Expiratory 5 Pressure Positive End Expiratory 5 Pressure Positive End Expiratory 5 Pressure Positive End Expiratory 5 Pressure Positive End Expiratory 5 Pressure Positive End Expiratory 5 Pressure Positive End Expiratory 5 Pressure Positive End Expiratory 5 Pressure Positive End Expiratory 5 Pressure Positive End Expiratory 5 Pressure Peak Inspiratory Airway 19 Pressure Peak Inspiratory Airway 23 Pressure Peak Inspiratory Airway 22 Pressure Peak Inspiratory Airway 22 Pressure Peak Inspiratory Airway 7.3 Pressure Peak Inspiratory Airway 14 Pressure Peak Inspiratory Airway 21 Pressure Peak Inspiratory Airway 21 Pressure Peak Inspiratory Airway 21 Pressure Peak Inspiratory Airway 21 Pressure Results - Laboratory Findings CBC and BMP: 11/05/17 03:00 11/05/17 03:00 ABG ABG pH 7.31 pH Units (7.32-7.45) L 11/05/17 08:06 ABG pCO2 38 mmHg (35-45) 11/05/17 08:06 ABG pO2 97 mmHg (85-104) 11/05/17 08:06 ABG O2 Saturation 97 % (95-98) 11/05/17 08:06 PT/INR, D-dimer PT 15.8 Seconds (9.4-12.1) H 11/02/17 18:42 Abnormal lab findings: Abnormal lab results WBC 13.6 K/mcL (4.3-11.1) H 11/05/17 03:00 RBC 3.17 M/mcL (3.82-4.97) L 11/05/17 03:00 Hgb 10.7 g/dL (11.5-15.4) L 11/05/17 03:00 Hct 31.2 % (35.3-44.9) L 11/05/17 03:00 MCH 33.8 pg (28.0-33.3) H 11/05/17 03:00 RDW 15.4 % (11.5-14.5) H 11/05/17 03:00 Band Neutrophils % 15.0 % (0-4) H 11/03/17 04:15 Metamyelocytes % 1.0 % (0) H 11/03/17 04:15 Neutrophils # 12.3 K/mcL (1.6-8.9) H 11/05/17 03:00 Lymphocytes # 0.4 K/mcL (0.6-4.6) L 11/05/17 03:00 Reactive Lymphocytes Present (Not Present) A 11/04/17 03:50 Toxic Granulation Present (Not Present) A 11/04/17 03:50 Dohle Bodies Present (Not Present) A 11/04/17 03:50 PT 15.8 Seconds (9.4-12.1) H 11/02/17 18:42 ABG pH 7.31 pH Units (7.32-7.45) L 11/05/17 08:06 ABG HCO3 19 mEq/L (21-27) L 11/05/17 08:06 ABG Base Excess -7 mEq/L (-2 to 3) L 11/05/17 08:06 Chloride 111 mEq/L (98-107) H 11/05/17 03:00 Carbon Dioxide 18 mEq/L (23-29) L 11/05/17 03:00 BUN 78 mg/dL (8-23) H 11/05/17 03:00 Creatinine 3.58 mg/dL (0.60-1.20) H 11/05/17 03:00 Est GFR ( Amer) 15 (> 60) L 11/05/17 03:00 Est GFR (Non-Af Amer) 12 (> 60) L 11/05/17 03:00 Glucose 213 mg/dL (70-105) H 11/05/17 03:00 POC Glucose 194 mg/dL (70-99) H 11/05/17 02:53 Hemoglobin A1c 5.8 % (-5.6) H 11/02/17 22:40 Calculated Osmolality 318 (280-300) H 11/05/17 03:00 Calcium 8.2 mg/dL (8.6-10.3) L 11/05/17 03:00 Magnesium 2.8 mg/dL (1.6-2.6) H 11/05/17 03:00 Total Bilirubin 1.2 mg/dL (0.3-1.0) H 11/02/17 18:42 Troponin I 0.05 ng/mL (< 0.04) H* 11/03/17 07:25 B-Natriuretic Peptide 112 pg/mL (Less than 100) H 11/02/17 18:42 Ur Specimen Adequacy See below A 11/02/17 20:24 Urine Clarity Turbid (Clear) A 11/02/17 20:24 Ur Specific [place] 1.030 (1.010-1.025) H 11/02/17 20:24 Urine Protein >=300 mg/dL (Neg-Trace) H 11/02/17 20:24 Urine Ketones Trace mg/dL (Negative) H 11/02/17 20:24 Urine Blood Large (Negative) H 11/02/17 20:24 Urine Bilirubin Small (Negative) H 11/02/17 20:24 Urine Microscopic WBC 5-15 per hpf (0-3) H 11/02/17 20:24 Ur Squamous Epith Cells Many per lpf (None-Few) H 11/02/17 20:24 Amorphous Sediment Many (Few) H 11/02/17 20:24 Granular Casts Few per lpf (None Seen) H 11/02/17 20:24 Influenza Type B (PCR) DETECTED (Not Detect) A 11/03/17 03:45 - Microbiology Findings Microbiology Findings: Microbiology, Last 48 Hours 11/03/17 03:45 Sputum Culture - Final Sputum Staphylococcus aureus - Clinical Findings Intake & Output: Intake & Output 11/04/17 11/05/17 11/05/17 23:59 07:59 15:59 Intake Total 700 / 700 310 / 310 50 / 50 Output Total 250 / 250 200 / 200 Balance 450 / 450 110 / 110 50 / 50 Weight 79 kg Consult Discharge Plan - Plan Referrals: Chato Guardado CNP [Primary Care Provider] - - Attending Attestation I examined this patient and my medical decision-making was reviewed with the Resident Physician. I agree with the documented findings, disposition and treatment plan as described except to the extent set forth below. We independently had [id number] contact with the patient Patient seen and examined at bedside Labs, radiology, chart personally reviewed. Management was reviewed during multidisciplinary critical care rounds. SAW BOSS: Remains encephalopathic but with evidence of agitation at times. I am concerned about the chronicity of encephalopathy despite having stop sedation will send for head CT today to evaluate a central pathology Pulm: Acute hypoxic respiratory failure secondary to an event with acceptable oxygenation she is not a candidate for a spontaneous breathing trial today because of encephalopathy Cards: Blood pressure stable tachycardic at times which I I think is related to agitation FEN-GI: Continue enteral nutrition GI prophylaxis given Renal: worsening acute kidney injury suspected ATN. Despite fluid resuscitation yesterday urine output has only been marginal and serum creatinine continues to rise ultrasound of the kidney was unremarkable urine eosinophils were negative nephrology has been consulted ID: treating for MSSA pneumonia complicating influenza B white count stable remains afebrile Heme/Onc: DVT prophylaxis given Endo: Glucose Monitored Integ/MSK: Skin Care per routine ICU Nursing Protocol to prevent ulcers. Lines: All lines examined without evidence of infection : Dispo: Remain in ICU for ventilator need CODE: remains DNAR plan is to arrange meeting with next of kin her daughter today <Paris Wright - Last Filed: 11/05/17 12:24> Date of Encounter: 11/05/17 Assessment and Plan (1) Severe sepsis Current Visit: Yes Status: Acute Severe sepsis secondary to multifocal pneumonia and influenza B. On presentation, Patient had an elevated lactate acid, tachycardia, tachypnea, leukocytosis, fever, and source of infection. Lactic acid is now within normal limits. Patient is still tachycardic and ventilated. She is afebrile. White blood cell count has decreased. Legionella and strep pneumoniae name negative and urine. Sputum culture growing staph aureus. Blood cultures negative. Status post 2L LR in the last 24 hrs. Worsening tachycardia most likely 2/2 to metabolic acidosis not worsening infection. Plan: - Cefazolin 1g Q12 hrs ( day 2) - Stop Vancomycin, Zosyn and levoquin - continue Tamiflu day 3 - blood pressure remaining stable without pressors. (2) Acute respiratory failure Current Visit: Yes Status: Acute Acute respiratory failure secondary to multifocal pneumonia and influenza B. Initially on BiPAP in the ED but required intubation. Most recent ABG showed pH 7.21, CO2 51, O2 78, CO3 23. ABG today showed, Resp acidosis and metabolic acidosis non-anion gap today. Currently fighting the vent despite the sedation with increasing tachypnea and belly breathing. Will increase sedation and obtain head CT. Plan: - head CT w/o contrast - continue ventilator support - sedation: continue Precedex Fentanyl - Albuterol every 2 hours prn, Duonebs Q4hr lidia - Solu-Medrol 40 every 8H - Diet: start Tube feeds, increased to high SSI Qualifiers: Respiratory failure complication: hypoxia Qualified Code(s): J96.01 - Acute respiratory failure with hypoxia (3) Multifocal pneumonia Current Visit: Yes Status: Acute 2/2 to staph aureus. See plan above. We will stop vancomycin, Zosyn and Levaquin. Continuecefazolin 1 g every 12 hours renally dosed for decreased creatinine clearance. (4) Hyperglycemia Current Visit: Yes Status: Acute A1c= 5.8, prediabetic. Increase to high SSI (5) Ovarian cancer Current Visit: Yes Status: Acute Ovarian cancer with metastasis. Currently being treated in [place]. Patient is on chemotherapy agents. Qualifiers: Laterality: unspecified laterality Qualified Code(s): C56.9 - Malignant neoplasm of unspecified ovary (6) CAD (coronary artery disease) Current Visit: Yes Status: Chronic Hx of CAD with stents. Elevated troponins with a max of 0.05. Last troponin = 0.01. Most likely secondary to demand ischemia from hypoxia Qualifiers: Coronary Disease-Associated Artery/Lesion type: [place] artery [place] vs. transplanted heart: [place] heart Associated angina: angina presence unspecified Qualified Code(s): I25.10 - Atherosclerotic heart disease of [place] coronary artery without angina pectoris (7) Influenza B Current Visit: Yes Status: Acute Continue tamiflu (8) RUSTY (acute kidney injury) Current Visit: Yes Status: Acute Elevated creatinine. Unsure baseline as patient has not been to this hospital in 2 years. Baseline 2 years ago was within normal limits. US so kidney showed no hydronephrosis or stone blockage. FeNA= 25. Bladder scan was obtained which did not show urinary retention. Patient has a Fraser catheter in. Unsure what is causing post-renal RUSTY. Vancomycin was stopped yesterday and creatinine continued to rise. Plan: - Consult to nephrology, appreciate recommendations - Vancomycin (9) DVT prophylaxis Current Visit: Yes Status: Acute Heparin SQ Subjective Principal diagnosis: multifocal pneumonia and influneza B Interval history: Ms. Hooper is a 77 year old female with past medical history of CAD with stents , HTN, and ovarian cancer with mets presented to the ED with SOB and patient was found to be in acute respiratory failure 2/2 influenza B and multifocial pneumonia. Patient is currently sedated on Precedex with fentanyl and is not responding to commands and is tachypneic and sinus tachycardic. Unable to obtain ROS as patient is intubated. Objective PUL Vital signs: Last Vital Signs Temp 99.2 F 11/05/17 07:20 Pulse 125 11/05/17 07:20 Resp 25 11/05/17 07:32 BP 141/84 11/05/17 07:32 Pulse Ox 98 11/05/17 07:32 Constitutional: intubated with increase work of breathing with belly breathing Head: Normocephalic, atraumatic Heart: tachycardic, regular rhythm, no murmurs Lungs: Tachypnic, rhonchi, intubated on ventilator Abdomen: Soft, nondistended, nontender, no guarding or rigidity. Extremities: upper extremities swelling in hands and +1 pitting edema bilaterally in LE, No clubbing capillary refill <2sec. Skin: Skin warm and dry, no lesions, no rashes, no jaundice Neurologic: currently not responding to commands, not opening eyes to verbal stimuli, LInes: PIV, med port Ventilator Settings Ventilator Settings: Ventilator Settings, Last 8 Hours Ventilator Mode A/C Ventilator Mode A/C Ventilator Mode A/C Ventilator Mode A/C Ventilator Mode A/C Ventilator Mode A/C Ventilator Mode A/C Ventilator Mode A/C Ventilator Mode A/C Ventilator Mode A/C Ventilator Mode A/C Ventilator Tidal Volume 400 Setting Ventilator Tidal Volume 400 Setting Ventilator Tidal Volume 400 Setting Ventilator Tidal Volume 400 Setting Ventilator Tidal Volume 400 Setting Ventilator Tidal Volume 400 Setting Ventilator Tidal Volume 400 Setting Ventilator Tidal Volume 400 Setting Ventilator Tidal Volume 400 Setting Ventilator Tidal Volume 400 Setting Ventilator Tidal Volume 400 Setting Ventilator Respiratory Rate 20 Setting Ventilator Respiratory Rate 20 Setting Ventilator Respiratory Rate 20 Setting Ventilator Respiratory Rate 20 Setting Ventilator Respiratory Rate 20 Setting Ventilator Respiratory Rate 20 Setting Ventilator Respiratory Rate 20 Setting Ventilator Respiratory Rate 20 Setting Ventilator Respiratory Rate 20 Setting Ventilator Respiratory Rate 20 Setting Ventilator Respiratory Rate 20 Setting Actual Respiratory Rate 27 Actual Respiratory Rate 35 Actual Respiratory Rate 27 Actual Respiratory Rate 20 Actual Respiratory Rate 27 Actual Respiratory Rate 27 Actual Respiratory Rate 20 Actual Respiratory Rate 28 Actual Respiratory Rate 30 Actual Respiratory Rate 20 Actual Respiratory Rate 27 Positive End Expiratory 5 Pressure Positive End Expiratory 5 Pressure Positive End Expiratory 5 Pressure Positive End Expiratory 5 Pressure Positive End Expiratory 5 Pressure Positive End Expiratory 5 Pressure Positive End Expiratory 5 Pressure Positive End Expiratory 5 Pressure Positive End Expiratory 5 Pressure Positive End Expiratory 5 Pressure Positive End Expiratory 5 Pressure Peak Inspiratory Airway 22 Pressure Peak Inspiratory Airway 22 Pressure Peak Inspiratory Airway 7.3 Pressure Peak Inspiratory Airway 14 Pressure Peak Inspiratory Airway 21 Pressure Peak Inspiratory Airway 21 Pressure Peak Inspiratory Airway 21 Pressure Peak Inspiratory Airway 21 Pressure Peak Inspiratory Airway 18 Pressure Peak Inspiratory Airway 23 Pressure Peak Inspiratory Airway 15 Pressure Results - Laboratory Findings CBC and BMP: 11/05/17 03:00 11/05/17 03:00 ABG ABG pH 7.31 pH Units (7.32-7.45) L 11/05/17 08:06 ABG pCO2 38 mmHg (35-45) 11/05/17 08:06 ABG pO2 97 mmHg (85-104) 11/05/17 08:06 ABG O2 Saturation 97 % (95-98) 11/05/17 08:06 PT/INR, D-dimer PT 15.8 Seconds (9.4-12.1) H 11/02/17 18:42 Abnormal lab findings: Abnormal lab results WBC 13.6 K/mcL (4.3-11.1) H 11/05/17 03:00 RBC 3.17 M/mcL (3.82-4.97) L 11/05/17 03:00 Hgb 10.7 g/dL (11.5-15.4) L 11/05/17 03:00 Hct 31.2 % (35.3-44.9) L 11/05/17 03:00 MCH 33.8 pg (28.0-33.3) H 11/05/17 03:00 RDW 15.4 % (11.5-14.5) H 11/05/17 03:00 Band Neutrophils % 15.0 % (0-4) H 11/03/17 04:15 Metamyelocytes % 1.0 % (0) H 11/03/17 04:15 Neutrophils # 12.3 K/mcL (1.6-8.9) H 11/05/17 03:00 Lymphocytes # 0.4 K/mcL (0.6-4.6) L 11/05/17 03:00 Reactive Lymphocytes Present (Not Present) A 11/04/17 03:50 Toxic Granulation Present (Not Present) A 11/04/17 03:50 Dohle Bodies Present (Not Present) A 11/04/17 03:50 PT 15.8 Seconds (9.4-12.1) H 11/02/17 18:42 ABG pH 7.31 pH Units (7.32-7.45) L 11/05/17 08:06 ABG HCO3 19 mEq/L (21-27) L 11/05/17 08:06 ABG Base Excess -7 mEq/L (-2 to 3) L 11/05/17 08:06 Chloride 111 mEq/L (98-107) H 11/05/17 03:00 Carbon Dioxide 18 mEq/L (23-29) L 11/05/17 03:00 BUN 78 mg/dL (8-23) H 11/05/17 03:00 Creatinine 3.58 mg/dL (0.60-1.20) H 11/05/17 03:00 Est GFR ( Amer) 15 (> 60) L 11/05/17 03:00 Est GFR (Non-Af Amer) 12 (> 60) L 11/05/17 03:00 Glucose 213 mg/dL (70-105) H 11/05/17 03:00 POC Glucose 194 mg/dL (70-99) H 11/05/17 02:53 Hemoglobin A1c 5.8 % (-5.6) H 11/02/17 22:40 Calculated Osmolality 318 (280-300) H 11/05/17 03:00 Calcium 8.2 mg/dL (8.6-10.3) L 11/05/17 03:00 Magnesium 2.8 mg/dL (1.6-2.6) H 11/05/17 03:00 Total Bilirubin 1.2 mg/dL (0.3-1.0) H 11/02/17 18:42 Troponin I 0.05 ng/mL (< 0.04) H* 11/03/17 07:25 B-Natriuretic Peptide 112 pg/mL (Less than 100) H 11/02/17 18:42 Ur Specimen Adequacy See below A 11/02/17 20:24 Urine Clarity Turbid (Clear) A 11/02/17 20:24 Ur Specific [place] 1.030 (1.010-1.025) H 11/02/17 20:24 Urine Protein >=300 mg/dL (Neg-Trace) H 11/02/17 20:24 Urine Ketones Trace mg/dL (Negative) H 11/02/17 20:24 Urine Blood Large (Negative) H 11/02/17 20:24 Urine Bilirubin Small (Negative) H 11/02/17 20:24 Urine Microscopic WBC 5-15 per hpf (0-3) H 11/02/17 20:24 Ur Squamous Epith Cells Many per lpf (None-Few) H 11/02/17 20:24 Amorphous Sediment Many (Few) H 11/02/17 20:24 Granular Casts Few per lpf (None Seen) H 11/02/17 20:24 Influenza Type B (PCR) DETECTED (Not Detect) A 11/03/17 03:45 - Microbiology Findings Microbiology Findings: Microbiology, Last 48 Hours 11/03/17 03:45 Sputum Culture - Preliminary Sputum Staphylococcus aureus 11/03/17 03:45 Legionella Antigen - Final Urine,Clean Catch Streptococcus pneumoniae Antigen (M - Final - Clinical Findings Intake & Output: Intake & Output 11/04/17 11/05/17 11/05/17 23:59 07:59 15:59 Intake Total 700 / 700 310 / 310 Output Total 250 / 250 200 / 200 Balance 450 / 450 110 / 110 Weight 79 kg
[2017-11-05] MEDS: MethylPREDNISolone 40 MG/ML VIAL IVP SCH ×3 (08:30→23:52)
[2017-11-05] MEDS: Pantoprazole 40 MG VIAL IVP SCH (08:30)
[2017-11-05] MEDS: Chlorhexidine Rinse 15 ML MOUTHWASH MM SCH ×2 (08:31→20:30)
[2017-11-05] MEDS: Oseltamivir Phosphate 30 MG CAPSULE PO SCH (08:31)
[2017-11-05] MEDS: FentaNYL (PF) 1,000 MCG in 0.9 % Sodium Chloride 80 ML IVC SCH ×2 (10:12→17:47)
[2017-11-05] MEDS: ceFAZolin 1,000 MG in Water for inj. (sterile) 20 ML 10 ML IVPB SCH ×2 (12:45→23:51)
--- NOTE | 2017-11-05 13:01 | Nephrology Consult Note ---
<Karl Holder - Last Filed: 11/05/17 14:10> Date of Encounter: 11/05/17 Time of Encounter: 12:58 Assessment and Plan (1) RUSTY (acute kidney injury) Current Visit: Yes Status: Acute Patient's Cr on admission was 1.66. Cr jumped to 3.49 and 3.58 in the last two days. Unknown diuretic usage, but has not received diuretics since hospitalization. Unable to accurately calculate FENa due to lab lower limits, but Kylie is <20 which is suggestive of Pre-renal disease. RUSTY is most likely due to decreased effective renal perfusion in the setting of sepsis. Vancomycin administration may also be a contributing factor. Renal U/S is unremarkable. patient is oliguric. With a cumulative I/O of ~+6.6 L. I/O was discussed with critical care team resident and nurse, I/O has been accurately recorded since hospitalization. - avoid nephrotoxins as able to - renal dosing - strict I/O - Patient is not fluid overloaded, and most likely remains dry. Do not recommend lasix administration. Continue IVF. (2) Acute respiratory failure Current Visit: Yes Status: Acute per critical care team Qualifiers: Respiratory failure complication: hypoxia Qualified Code(s): J96.01 - Acute respiratory failure with hypoxia (3) Influenza B Current Visit: Yes Status: Acute per critical care team (4) Severe sepsis Current Visit: Yes Status: Acute per critical care team History of Present Illness - Reason for Consult Consult date: 11/05/17 Acute Kidney Injury Requesting physician: Paris Wright - Chief Complaint MARCO A - History of Present Illness Ms Hooper is a 77 yo F presented with S. Aureus PNA and positive for Flu B found to be in Severe Sepsis with an elevated lactic acid, tachycardia, tachypnea, leukocytosis, and fever. Nephrology is consulted for RUSTY. Per chart review, patient started having trouble breathing and came to [facility] on . Patient was positive for PNA and Flu B, was started on vancomycin and Zosyn due to suspected HAP. Patient is seen and examined. Patient remains intubated and sedated at this time, and unable to provide history. Past Med Surg Social Fam HX - Past Medical History Medical history: cancer (ovarian cancer with mets ), COPD, hyperlipidemia, hypertension Psychiatric history: no psych history - Social History Smoking Status: Former smoker Smokeless Tobacco Status: No Alcohol use: none Drug use: none Medications and Allergies Albuterol Sulfate [Ventolin Hfa] 1 puff IH DAILY PRN 11/02/17 [History] Citalopram Hydrobromide [Citalopram HBr] 40 mg PO DAILY 11/02/17 [History] Lisinopril [Zestril] 40 mg PO DAILY 11/02/17 [History] Rucaparib Camsylate [Rubraca] 300 mg PO BID 11/02/17 [History] 3 Allergy/AdvReac Type Severity Reaction Status Date / Time No Known Allergies Allergy Verified 11/02/17 18:12 Review of Systems ROS unobtainable: due to endotracheal tube, due to mental status Exam - Vital Signs Vital signs: Initial Vital Signs Temp Pulse Resp BP Pulse Ox 103.1 F H 149 28 153/103 91 11/02/17 18:13 11/02/17 18:13 11/02/17 18:13 11/02/17 18:13 11/02/17 18:13 Vital Signs - Last 8 Hours Temp Pulse Resp BP Pulse Ox 11/05/17 12:17 130 28 166/92 97 11/05/17 11:18 31 139/76 96 11/05/17 11:10 127 29 139/76 96 11/05/17 10:30 115 25 149/69 95 11/05/17 09:20 118 30 132/62 96 11/05/17 08:20 124 27 141/70 97 11/05/17 07:32 25 141/84 98 11/05/17 07:20 99.2 F 125 35 140/73 97 11/05/17 06:00 122 25 135/68 98 11/05/17 05:58 20 143/87 98 11/05/17 05:00 100 27 136/76 98 Intake and Output 11/04/17 11/05/17 11/05/17 23:59 07:59 15:59 Intake Total 700 / 700 310 / 310 550 / 550 Output Total 250 / 250 200 / 200 Balance 450 / 450 110 / 110 550 / 550 Intake: IV Fluids 100 / 100 110 / 110 50 / 50 PRECEDEX Premix 400 mcg In 100 100 / 100 100 / 100 ml @ 0.2 MCG/KG/HR 3.915 mls/hr IVC .Q24H [facility] Rx#:[id number] FentaNYL (PF) 1,000 MCG In 0.9 0 / 0 50 / 50 % Sodium Chloride 80 ML @ 50 MCG/HR 5 mls/hr IVC CONT [facility] Rx #:[id number] Ancef 1,000 MG In Water for inj . (sterile) 10 ML @ 200 mls/hr IVPB Q12H [facility] Rx#:[id number] Tube Feeding 450 / 450 200 / 200 200 / 200 Free Water 150 / 150 150 / 150 Free Water Intake Amount 150 / 150 Output: Catheter 250 / 250 200 / 200 Other: Weight 79 kg Blood Glucose* 214 262 Patient Weight 11/05/17 23:59 Weight 79 kg - General Appearance General appearance: appears started age, obese, sedated on ventilator, intubated Neck: supple Respiratory: wheezing (diffuse expiratory wheezes) Cardiology: edema (0+ BLE, mild at best. No pitting edema on sacrum.), regular rate, regular rhythm Gastrointestinal: hypoactive bowel sounds Integumentary: warm and dry Results - Lab Results 11/05/17 03:00 11/05/17 03:00 Most recent lab results ABG pH 7.31 pH Units (7.32-7.45) L 11/05/17 08:06 ABG pCO2 38 mmHg (35-45) 11/05/17 08:06 ABG pO2 97 mmHg (85-104) 11/05/17 08:06 ABG HCO3 19 mEq/L (21-27) L 11/05/17 08:06 ABG O2 Saturation 97 % (95-98) 11/05/17 08:06 Calcium 8.2 mg/dL (8.6-10.3) L 11/05/17 03:00 Phosphorus 3.8 mg/dL (2.7-4.5) 11/05/17 03:00 Magnesium 2.8 mg/dL (1.6-2.6) H 11/05/17 03:00 Urine Creatinine < 1 mg/dL 11/04/17 09:10 Urine Sodium < 10.0 mEq/L 11/04/17 09:10 Consult Discharge Plan - Plan Referrals: Chato Guardado, AIDA [Primary Care Provider] - <Logan Orourke - Last Filed: 04/09/18 08:44> Date of Encounter: 11/05/17 Exam - Vital Signs Vital signs: Initial Vital Signs Temp Pulse Resp BP Pulse Ox 103.1 F H 149 28 153/103 91 11/02/17 18:13 11/02/17 18:13 11/02/17 18:13 11/02/17 18:13 11/02/17 18:13 Vital Signs - Last 8 Hours Temp Pulse Resp BP Pulse Ox 11/09/17 08:00 98.7 F 11/09/17 07:30 108 26 128/91 96 11/09/17 06:12 17 100/56 98 11/09/17 06:00 106 21 100/56 96 11/09/17 05:00 93 26 97/56 98 11/09/17 04:00 92 26 97/54 98 11/09/17 03:23 26 113/61 98 11/09/17 03:00 98.5 F 92 26 97/54 98 11/09/17 02:00 105 26 105/57 98 11/09/17 01:15 26 97/50 99 11/09/17 01:00 98 26 97/50 98 Intake and Output 11/08/17 11/09/17 11/09/17 23:59 07:59 15:59 Intake Total 1006 / 1006 977 / 977 Output Total 300 / 300 700 / 700 175 / 175 Balance 706 / 706 277 / 277 -175 / -175 Intake: IV Fluids 238 / 238 250 / 250 PRECEDEX Premix 400 mcg In 100 100 / 100 100 / 100 ml @ 0.2 MCG/KG/HR 3.915 mls/hr IVC .Q24H [facility] Rx#:[id number] FentaNYL (PF) 2,500 MCG In 50 / 50 Empty Bag 50 Each @ 50 MCG/HR 1 mls/hr IVC CONT [facility] Rx#: [id number] Diprivan 1,000 mg In 100 ml @ 100 / 100 100 / 100 10 MCG/KG/MIN 4.74 mls/hr IVC . Q21H6M [facility] Rx#:[id number] Ancef 1,000 MG In Water for inj 10 / 10 . (sterile) 10 ML @ 200 mls/hr IVPB Q12H [facility] Rx#:[id number] Tube Feeding 318 / 318 427 / 427 Free Water 300 / 300 150 / 150 Free Water Intake Amount 150 / 150 150 / 150 Output: Rectal Tube 0 / 0 100 / 100 0 / 0 Catheter 300 / 300 600 / 600 175 / 175 Other: Weight 88.4 kg Blood Glucose* 136 172 Patient Weight 11/09/17 23:59 Weight 88.4 kg Results - Lab Results 11/09/17 02:45 11/09/17 02:45 Most recent lab results ABG pH 7.33 pH Units (7.32-7.45) 11/09/17 04:39 ABG pCO2 49 mmHg (35-45) H 11/09/17 04:39 ABG pO2 95 mmHg (85-104) 11/09/17 04:39 ABG HCO3 26 mEq/L (21-27) 11/09/17 04:39 ABG O2 Saturation 97 % (95-98) 11/09/17 04:39 Calcium 7.7 mg/dL (8.6-10.3) L 11/09/17 02:45 Phosphorus 5.3 mg/dL (2.7-4.5) H 11/09/17 02:45 Magnesium 2.7 mg/dL (1.6-2.6) H 11/09/17 02:45 Urine Creatinine < 1 mg/dL 11/04/17 09:10 Urine Sodium 73.5 mEq/L 11/07/17 04:25 - Attending Attestation I examined this patient and my medical decision-making was reviewed with the Resident Physician. I agree with the documented findings, disposition and treatment plan as described except to the extent set forth below. Pt seen and examined intubated and sedated being treated for PNA and influenza B. No family member at bedside. RUSTY noted with oliguria despite volume repletion so far. Likely etiology of RUSTY still appears to be pre-renal given urine sodium <20 and in the seeting of sepsis along with vanco use. Will continue RUSTY workup but suggest continued volume repletion if possible. No acute indication for [employer] today but may need in the next 24hrs if no improvement.
[2017-11-05] MEDS ORDERED: 0.9 % Sodium Chloride 1,000 ML IVC SCH (15:15)
[2017-11-05] MEDS ORDERED: Ringers Solution, Lactated 500 ML IVC ONE (16:07)
[2017-11-05] MEDS: Ringers Solution, Lactated 500 ML IVC ONE (16:38)
[2017-11-05] MEDS: Ringers Solution, Lactated 1,000 ML IVC SCH (17:54)
[2017-11-05 18:34] LABS: Calcium 8.5 mg/dL (8.6-10.3); Potassium 4.7 mEq/L (3.5-5.1)
[2017-11-06] MEDS: FentaNYL (PF) 1,000 MCG in 0.9 % Sodium Chloride 80 ML IVC SCH ×3 (00:13→08:58)
[2017-11-06] MEDS: Ipratropium/Albuterol Neb 3 ML IH SCH ×6 (03:40→23:23)
[2017-11-06 04:28] LABS: ABG Base Excess -8 mEq/L (-2 to 3); ABG HCO3 21 mEq/L (21-27); ABG Oxygen Saturation 92 % (95-98); ABG PCO2 59 mmHg (35-45); ABG PH 7.15 pH Units (7.32-7.45); ABG PO2 84 mmHg (85-104); ABG TCO2 22 mEq/L (20-26); Blood Gas Modality PRVC; Blood Gas PEEP 5 cm H2O; Blood Gas Respiration Rate 20; Blood Gas VT 400 cc
[2017-11-06 04:33] LABS: Basophils % 0.2 %; Hematocrit 30.5 % (35.3-44.9); Immature Granulocytes % 1.7 % (0-4); Lymphocytes # 0.5 K/mcL (0.6-4.6); Lymphocytes % 3.4 %; Mean Corpuscular HGB Conc 32.8 g/dL (31.6-35.5); Mean Corpuscular Hemoglobin 33.3 pg (28.0-33.3); Mean Corpuscular Volume 101.7 fL (83.0-100.0); Monocytes # 1.1 K/mcL (0.0-1.3); Neutrophils # 11.6 K/mcL (1.6-8.9); Platelet Count 157 K/mcL (140-400); Red Cell Distribution Width 16.6 % (11.5-14.5); Segmented Neutrophils % 86.7 %
[2017-11-06 04:33] LABS: VBG Ionized Calcium 1.16 mmol/L (1.15-1.35)
[2017-11-06] MEDS: Lacri-Lube 3.5 GM TUBE BOTH EYES SCH ×5 (04:55→21:16)
[2017-11-06] MEDS: Insulin LISPRO 300 UNITS/3 ML VIAL SQ SCH ×5 (04:55→21:27)
[2017-11-06 04:58] LABS: Magnesium 3.1 mg/dL (1.6-2.6); Phosphorous 5.1 mg/dL (2.7-4.5)
[2017-11-06 04:59] LABS: Calcium 8.3 mg/dL (8.6-10.3); Potassium 4.2 mEq/L (3.5-5.1)
[2017-11-06] MEDS: Ringers Solution, Lactated 1,000 ML IVC SCH ×2 (06:11→18:48)
[2017-11-06] MEDS: *HR* Heparin 5,000 UNIT/ML VIAL SQ SCH ×3 (06:12→21:15)
[2017-11-06] MEDS: Oseltamivir Phosphate 30 MG CAPSULE PO SCH (08:03)
[2017-11-06] MEDS: Pantoprazole 40 MG VIAL IVP SCH (08:03)
[2017-11-06] MEDS: MethylPREDNISolone 40 MG/ML VIAL IVP SCH ×2 (08:03→14:57)
[2017-11-06] MEDS: Chlorhexidine Rinse 15 ML MOUTHWASH MM SCH ×2 (08:03→21:14)
--- NOTE | 2017-11-06 09:01 | Pulmonology Progress Note ---
<AnitaKevs W - Last Filed: 11/06/17 14:02> Date of Encounter: 11/06/17 Objective PUL Vital signs: Last Vital Signs Temp 97.6 F 11/06/17 04:00 Pulse 123 11/06/17 09:00 Resp 27 11/06/17 09:00 BP 111/55 11/06/17 09:00 Pulse Ox 95 11/06/17 09:00 Ventilator Settings Ventilator Settings: Ventilator Settings, Last 8 Hours Ventilator Mode VC+ Ventilator Mode VC+ Ventilator Mode VC+ Ventilator Mode VC+ Ventilator Mode VC+ Ventilator Mode VC+ Ventilator Mode VC+ Ventilator Mode VC+ Ventilator Mode VC+ Ventilator Mode VC+ Ventilator Mode VC+ Ventilator Tidal Volume 420 Setting Ventilator Tidal Volume 420 Setting Ventilator Tidal Volume 400 Setting Ventilator Tidal Volume 400 Setting Ventilator Tidal Volume 400 Setting Ventilator Tidal Volume 400 Setting Ventilator Tidal Volume 400 Setting Ventilator Tidal Volume 400 Setting Ventilator Tidal Volume 400 Setting Ventilator Tidal Volume 400 Setting Ventilator Tidal Volume 400 Setting Ventilator Respiratory Rate 20 Setting Ventilator Respiratory Rate 20 Setting Ventilator Respiratory Rate 20 Setting Ventilator Respiratory Rate 20 Setting Ventilator Respiratory Rate 20 Setting Ventilator Respiratory Rate 20 Setting Ventilator Respiratory Rate 20 Setting Ventilator Respiratory Rate 20 Setting Ventilator Respiratory Rate 20 Setting Ventilator Respiratory Rate 20 Setting Ventilator Respiratory Rate 20 Setting Actual Respiratory Rate 27 Actual Respiratory Rate 26 Actual Respiratory Rate 21 Actual Respiratory Rate 20 Actual Respiratory Rate 20 Actual Respiratory Rate 21 Actual Respiratory Rate 20 Actual Respiratory Rate 20 Actual Respiratory Rate 20 Actual Respiratory Rate 20 Positive End Expiratory 5 Pressure Positive End Expiratory 5 Pressure Positive End Expiratory 5 Pressure Positive End Expiratory 5 Pressure Positive End Expiratory 5 Pressure Positive End Expiratory 5 Pressure Positive End Expiratory 5 Pressure Positive End Expiratory 5 Pressure Positive End Expiratory 5 Pressure Positive End Expiratory 5 Pressure Positive End Expiratory 5 Pressure Peak Inspiratory Airway 27 Pressure Peak Inspiratory Airway 27 Pressure Peak Inspiratory Airway 30 Pressure Peak Inspiratory Airway 32 Pressure Peak Inspiratory Airway 29 Pressure Peak Inspiratory Airway 28 Pressure Peak Inspiratory Airway 27 Pressure Peak Inspiratory Airway 31 Pressure Peak Inspiratory Airway 27 Pressure Peak Inspiratory Airway 24 Pressure Results - Laboratory Findings CBC and BMP: 11/06/17 04:15 11/06/17 04:15 ABG ABG pH 7.15 pH Units (7.32-7.45) L* 11/06/17 04:17 ABG pCO2 59 mmHg (35-45) H 11/06/17 04:17 ABG pO2 84 mmHg (85-104) L 11/06/17 04:17 ABG O2 Saturation 92 % (95-98) L 11/06/17 04:17 PT/INR, D-dimer PT 15.8 Seconds (9.4-12.1) H 11/02/17 18:42 Abnormal lab findings: Abnormal lab results WBC 13.3 K/mcL (4.3-11.1) H 11/06/17 04:15 RBC 3.00 M/mcL (3.82-4.97) L 11/06/17 04:15 Hgb 10.0 g/dL (11.5-15.4) L 11/06/17 04:15 Hct 30.5 % (35.3-44.9) L 11/06/17 04:15 MCV 101.7 fL (83.0-100.0) H 11/06/17 04:15 RDW 16.6 % (11.5-14.5) H 11/06/17 04:15 Band Neutrophils % 15.0 % (0-4) H 11/03/17 04:15 Metamyelocytes % 1.0 % (0) H 11/03/17 04:15 Neutrophils # 11.6 K/mcL (1.6-8.9) H 11/06/17 04:15 Lymphocytes # 0.5 K/mcL (0.6-4.6) L 11/06/17 04:15 Reactive Lymphocytes Present (Not Present) A 11/04/17 03:50 Toxic Granulation Present (Not Present) A 11/04/17 03:50 Dohle Bodies Present (Not Present) A 11/04/17 03:50 PT 15.8 Seconds (9.4-12.1) H 11/02/17 18:42 ABG pH 7.15 pH Units (7.32-7.45) L* 11/06/17 04:17 ABG pCO2 59 mmHg (35-45) H 11/06/17 04:17 ABG pO2 84 mmHg (85-104) L 11/06/17 04:17 ABG O2 Saturation 92 % (95-98) L 11/06/17 04:17 ABG Base Excess -8 mEq/L (-2 to 3) L 11/06/17 04:17 Chloride 112 mEq/L (98-107) H 11/06/17 04:15 Carbon Dioxide 19 mEq/L (23-29) L 11/06/17 04:15 BUN 99 mg/dL (8-23) H 11/06/17 04:15 Creatinine 3.53 mg/dL (0.60-1.20) H 11/06/17 04:15 Est GFR ( Amer) 15 (> 60) L 11/06/17 04:15 Est GFR (Non-Af Amer) 13 (> 60) L 11/06/17 04:15 BUN/Creatinine Ratio 28 (6-26) H 11/06/17 04:15 Glucose 233 mg/dL (70-105) H 11/06/17 04:15 POC Glucose 217 mg/dL (70-99) H 11/05/17 23:27 Hemoglobin A1c 5.8 % (-5.6) H 11/02/17 22:40 Calculated Osmolality 330 (280-300) H 11/06/17 04:15 Calcium 8.3 mg/dL (8.6-10.3) L 11/06/17 04:15 Phosphorus 5.1 mg/dL (2.7-4.5) H 11/06/17 04:15 Magnesium 3.1 mg/dL (1.6-2.6) H 11/06/17 04:15 Total Bilirubin 1.2 mg/dL (0.3-1.0) H 11/02/17 18:42 Troponin I 0.05 ng/mL (< 0.04) H* 11/03/17 07:25 B-Natriuretic Peptide 112 pg/mL (Less than 100) H 11/02/17 18:42 Ur Specimen Adequacy See below A 11/02/17 20:24 Urine Clarity Turbid (Clear) A 11/02/17 20:24 Ur Specific [place] 1.030 (1.010-1.025) H 11/02/17 20:24 Urine Protein >=300 mg/dL (Neg-Trace) H 11/02/17 20:24 Urine Ketones Trace mg/dL (Negative) H 11/02/17 20:24 Urine Blood Large (Negative) H 11/02/17 20:24 Urine Bilirubin Small (Negative) H 11/02/17 20:24 Urine Microscopic WBC 5-15 per hpf (0-3) H 11/02/17 20:24 Ur Squamous Epith Cells Many per lpf (None-Few) H 11/02/17 20:24 Amorphous Sediment Many (Few) H 11/02/17 20:24 Granular Casts Few per lpf (None Seen) H 11/02/17 20:24 Influenza Type B (PCR) DETECTED (Not Detect) A 11/03/17 03:45 - Microbiology Findings Microbiology Findings: Microbiology, Last 48 Hours 11/03/17 03:45 Sputum Culture - Final Sputum Staphylococcus aureus - Clinical Findings Intake & Output: Intake & Output 11/05/17 11/06/17 11/06/17 23:59 07:59 15:59 Intake Total 1971 / 1971 1963 / 1963 825 / 825 Output Total 200 / 200 350 / 350 Balance 1772 / 1772 1614 / 1614 825 / 825 Weight 82.1 kg Consult Discharge Plan - Plan Referrals: Chato Guardado, AIDA [Primary Care Provider] - - Attending Attestation I examined this patient and my medical decision-making was reviewed with the Resident Physician. I agree with the documented findings, disposition and treatment plan as described except to the extent set forth below. We independently had [id number] contact with the patient Patient seen and examined at bedside Labs, radiology, chart personally reviewed. Management was reviewed during multidisciplinary critical care rounds. GEOLOGICAL SPECIALIST: Remains encephalopathic. Head CT wnl. Failed SAT again today because of agitation will cont to titrate down sedation today Pulm: Acute Respiratory failure. Remains vented with worsening gas exchange increased MV to decrease worsening combined acidosis. Not candidate for SBT today . Cont treating for PNA Cards:BP stable start BB for tachycardia FEN-GI: Cont enteral nutrition per diatery recs. Cont Gi prophylaxis Renal:RUSTY stable monitor UOP Nephrology following will trial diuretic today ID: Cont Treatment for MSSA PNA. Heme/Onc: DVT prophylaxis given Endo: Glucose Monitored Integ/MSK: Skin Care per routine ICU Nursing Protocol to prevent ulcers. Lines: All lines examined without evidence of infection : Dispo: Remain in ICU CODE: DNAR generally poor prognosis given failure to liberate over this week. I had a productive meeting with the patient's family including her daughter which is the POA and 2 other family members were present. I explained that overall prognosis is poor given advanced metastatic ovarian cancer. This is further reinforced by the the nature of the fact that she is had prolonged intubation related to severe pneumonia complicated by encephalopathy and acute kidney injury. Family understands the prognosis is poor than 1 continue current level of care at this time but were clear that the patient did not want prolonged intubation we will continue to discuss this based upon clinical course <Paris Wright - Last Filed: 11/06/17 18:45> Date of Encounter: 11/06/17 Time of Encounter: 08:00 Assessment and Plan (1) Severe sepsis Current Visit: Yes Status: Acute Severe sepsis secondary to multifocal pneumonia and influenza B. On presentation, Patient had an elevated lactate acid, tachycardia, tachypnea, leukocytosis, fever, and source of infection. Lactic acid is now within normal limits. Patient is still tachycardic and ventilated. She is afebrile. White blood cell count has decreased. Legionella and strep pneumoniae name negative and urine. Sputum culture growing staph aureus. Blood cultures negative. Patient was on LR 75 mg maintenance overnight. LR was stopped this morning Lasix 20 was given LR maintenance was restarted. Worsening tachycardia most likely 2/2 to metabolic acidosis not worsening infection. Plan: - Cefazolin 1g Q12 hrs ( day 3) - Stopped Vancomycin, Zosyn and levoquin - continue Tamiflu day 4/5 - blood pressure remaining stable without pressors. (2) Acute respiratory failure Current Visit: Yes Status: Acute Acute respiratory failure secondary to multifocal pneumonia and influenza B. Initially on BiPAP in the ED but required intubation. Most recent ABG showed pH 7.21, CO2 51, O2 78, CO3 23. ABG today showed, Resp acidosis and metabolic acidosis non-anion gap today. Currently fighting the vent despite the sedation with increasing tachypnea and belly breathing. Will increase sedation and obtain head CT. Head CT negative for acute process. Plan: - continue ventilator support - sedation: continue Precedex, Fentanyl, wean propofol if possible - Albuterol every 2 hours prn, Duonebs Q4hr lidia - Solu-Medrol 40 every 8H - Diet: start Tube feeds, increased to high SSI Qualifiers: Respiratory failure complication: hypoxia Qualified Code(s): J96.01 - Acute respiratory failure with hypoxia (3) Multifocal pneumonia Current Visit: Yes Status: Acute 2/2 to staph aureus. See plan above. We will stop vancomycin, Zosyn and Levaquin. Continue cefazolin 1 g every 12 hours renally dosed for decreased creatinine clearance. (4) Hyperglycemia Current Visit: Yes Status: Acute A1c= 5.8, prediabetic. Increase to high SSI. Glucose is elevated and continues to be elevated. Basal insulin 5 units initiated. (5) Ovarian cancer Current Visit: Yes Status: Acute Ovarian cancer with metastasis. Currently being treated in [place]. Patient is on chemotherapy agents. Qualifiers: Laterality: unspecified laterality Qualified Code(s): C56.9 - Malignant neoplasm of unspecified ovary (6) CAD (coronary artery disease) Current Visit: Yes Status: Chronic Hx of CAD with stents. Elevated troponins with a max of 0.05. Last troponin = 0.01. Most likely secondary to demand ischemia from hypoxia Qualifiers: Coronary Disease-Associated Artery/Lesion type: [place] artery [place] vs. transplanted heart: [place] heart Associated angina: angina presence unspecified Qualified Code(s): I25.10 - Atherosclerotic heart disease of [place] coronary artery without angina pectoris (7) Influenza B Current Visit: Yes Status: Acute Continue tamiflu (8) RUSTY (acute kidney injury) Current Visit: Yes Status: Acute Elevated creatinine. Unsure baseline as patient has not been to this hospital in 2 years. Baseline 2 years ago was within normal limits. US so kidney showed no hydronephrosis or stone blockage. FeNA= 25. Bladder scan was obtained which did not show urinary retention. Patient has a Fraser catheter in. Unsure what is causing post-renal RUSTY. Vancomycin was stopped yesterday and creatinine continued to rise. LR at 75 mL per hour was given on 8. Patient was given Lasix 20 mg IV push today. This evening LR was restarted several milligrams per hr. patient's creatinine has remained the same. Creatinine = 3.53 Plan: - Consult to nephrology, appreciate recommendations - Stopped Vancomycin (9) DVT prophylaxis Current Visit: Yes Status: Acute Heparin SQ Subjective Principal diagnosis: multifocal pneumonia and influneza B Interval history: Ms. Hooper is a 77 year old female with past medical history of CAD with stents , HTN, and ovarian cancer with mets presented to the ED with SOB and patient was found to be in acute respiratory failure 2/2 influenza B and multifocial pneumonia. Patient is currently sedated on Precedex and propofol with fentanyl and is not responding to commands and is sinus tachycardic. Granddaughter called in yesterday asking to talk to her grandma. She stated that her mom had the stomach flu and she had been unable to get a hold of her also. Unable to obtain ROS as patient is intubated. Objective PUL Vital signs: Last Vital Signs Temp 97.6 F 11/06/17 04:00 Pulse 118 11/06/17 08:00 Resp 26 11/06/17 08:00 BP 114/57 11/06/17 08:00 Pulse Ox 93 11/06/17 08:00 Constitutional: intubated, resting calmly Head: Normocephalic, atraumatic Heart: tachycardic, regular rhythm, no murmurs Lungs: rhonchi, intubated on ventilator Abdomen: Soft, nondistended, nontender, no guarding or rigidit, hypoactive bowel sounds Extremities: upper extremities non-pitting edema in hands and +1 pitting edema bilaterally pedal, No clubbing capillary refill <2sec. Skin: Skin warm and dry, no lesions, no rashes, no jaundice Neurologic: currently not responding to commands, not opening eyes to verbal stimuli, LInes: PIV, med port Ventilator Settings Ventilator Settings: Ventilator Settings, Last 8 Hours Ventilator Mode VC+ Ventilator Mode VC+ Ventilator Mode VC+ Ventilator Mode VC+ Ventilator Mode VC+ Ventilator Mode VC+ Ventilator Mode VC+ Ventilator Mode VC+ Ventilator Mode VC+ Ventilator Mode VC+ Ventilator Mode VC+ Ventilator Mode VC+ Ventilator Tidal Volume 420 Setting Ventilator Tidal Volume 400 Setting Ventilator Tidal Volume 400 Setting Ventilator Tidal Volume 400 Setting Ventilator Tidal Volume 400 Setting Ventilator Tidal Volume 400 Setting Ventilator Tidal Volume 400 Setting Ventilator Tidal Volume 400 Setting Ventilator Tidal Volume 400 Setting Ventilator Tidal Volume 400 Setting Ventilator Tidal Volume 400 Setting Ventilator Tidal Volume 400 Setting Ventilator Respiratory Rate 20 Setting Ventilator Respiratory Rate 20 Setting Ventilator Respiratory Rate 20 Setting Ventilator Respiratory Rate 20 Setting Ventilator Respiratory Rate 20 Setting Ventilator Respiratory Rate 20 Setting Ventilator Respiratory Rate 20 Setting Ventilator Respiratory Rate 20 Setting Ventilator Respiratory Rate 20 Setting Ventilator Respiratory Rate 20 Setting Ventilator Respiratory Rate 20 Setting Ventilator Respiratory Rate 20 Setting Actual Respiratory Rate 26 Actual Respiratory Rate 21 Actual Respiratory Rate 20 Actual Respiratory Rate 20 Actual Respiratory Rate 21 Actual Respiratory Rate 20 Actual Respiratory Rate 20 Actual Respiratory Rate 20 Actual Respiratory Rate 20 Actual Respiratory Rate 20 Actual Respiratory Rate 20 Positive End Expiratory 5 Pressure Positive End Expiratory 5 Pressure Positive End Expiratory 5 Pressure Positive End Expiratory 5 Pressure Positive End Expiratory 5 Pressure Positive End Expiratory 5 Pressure Positive End Expiratory 5 Pressure Positive End Expiratory 5 Pressure Positive End Expiratory 5 Pressure Positive End Expiratory 5 Pressure Positive End Expiratory 5 Pressure Positive End Expiratory 5 Pressure Peak Inspiratory Airway 27 Pressure Peak Inspiratory Airway 30 Pressure Peak Inspiratory Airway 32 Pressure Peak Inspiratory Airway 29 Pressure Peak Inspiratory Airway 28 Pressure Peak Inspiratory Airway 27 Pressure Peak Inspiratory Airway 31 Pressure Peak Inspiratory Airway 27 Pressure Peak Inspiratory Airway 24 Pressure Peak Inspiratory Airway 24 Pressure Peak Inspiratory Airway 22 Pressure Results - Laboratory Findings CBC and BMP: 11/06/17 04:15 11/06/17 15:05 ABG ABG pH 7.15 pH Units (7.32-7.45) L* 11/06/17 04:17 ABG pCO2 59 mmHg (35-45) H 11/06/17 04:17 ABG pO2 84 mmHg (85-104) L 11/06/17 04:17 ABG O2 Saturation 92 % (95-98) L 11/06/17 04:17 PT/INR, D-dimer PT 15.8 Seconds (9.4-12.1) H 11/02/17 18:42 Abnormal lab findings: Abnormal lab results WBC 13.3 K/mcL (4.3-11.1) H 11/06/17 04:15 RBC 3.00 M/mcL (3.82-4.97) L 11/06/17 04:15 Hgb 10.0 g/dL (11.5-15.4) L 11/06/17 04:15 Hct 30.5 % (35.3-44.9) L 11/06/17 04:15 MCV 101.7 fL (83.0-100.0) H 11/06/17 04:15 RDW 16.6 % (11.5-14.5) H 11/06/17 04:15 Band Neutrophils % 15.0 % (0-4) H 11/03/17 04:15 Metamyelocytes % 1.0 % (0) H 11/03/17 04:15 Neutrophils # 11.6 K/mcL (1.6-8.9) H 11/06/17 04:15 Lymphocytes # 0.5 K/mcL (0.6-4.6) L 11/06/17 04:15 Reactive Lymphocytes Present (Not Present) A 11/04/17 03:50 Toxic Granulation Present (Not Present) A 11/04/17 03:50 Dohle Bodies Present (Not Present) A 11/04/17 03:50 PT 15.8 Seconds (9.4-12.1) H 11/02/17 18:42 ABG pH 7.15 pH Units (7.32-7.45) L* 11/06/17 04:17 ABG pCO2 59 mmHg (35-45) H 11/06/17 04:17 ABG pO2 84 mmHg (85-104) L 11/06/17 04:17 ABG O2 Saturation 92 % (95-98) L 11/06/17 04:17 ABG Base Excess -8 mEq/L (-2 to 3) L 11/06/17 04:17 Chloride 112 mEq/L (98-107) H 11/06/17 04:15 Carbon Dioxide 19 mEq/L (23-29) L 11/06/17 04:15 BUN 99 mg/dL (8-23) H 11/06/17 04:15 Creatinine 3.53 mg/dL (0.60-1.20) H 11/06/17 04:15 Est GFR ( Amer) 15 (> 60) L 11/06/17 04:15 Est GFR (Non-Af Amer) 13 (> 60) L 11/06/17 04:15 BUN/Creatinine Ratio 28 (6-26) H 11/06/17 04:15 Glucose 233 mg/dL (70-105) H 11/06/17 04:15 POC Glucose 217 mg/dL (70-99) H 11/05/17 23:27 Hemoglobin A1c 5.8 % (-5.6) H 11/02/17 22:40 Calculated Osmolality 330 (280-300) H 11/06/17 04:15 Calcium 8.3 mg/dL (8.6-10.3) L 11/06/17 04:15 Phosphorus 5.1 mg/dL (2.7-4.5) H 11/06/17 04:15 Magnesium 3.1 mg/dL (1.6-2.6) H 11/06/17 04:15 Total Bilirubin 1.2 mg/dL (0.3-1.0) H 11/02/17 18:42 Troponin I 0.05 ng/mL (< 0.04) H* 11/03/17 07:25 B-Natriuretic Peptide 112 pg/mL (Less than 100) H 11/02/17 18:42 Ur Specimen Adequacy See below A 11/02/17 20:24 Urine Clarity Turbid (Clear) A 11/02/17 20:24 Ur Specific [place] 1.030 (1.010-1.025) H 11/02/17 20:24 Urine Protein >=300 mg/dL (Neg-Trace) H 11/02/17 20:24 Urine Ketones Trace mg/dL (Negative) H 11/02/17 20:24 Urine Blood Large (Negative) H 11/02/17 20:24 Urine Bilirubin Small (Negative) H 11/02/17 20:24 Urine Microscopic WBC 5-15 per hpf (0-3) H 11/02/17 20:24 Ur Squamous Epith Cells Many per lpf (None-Few) H 11/02/17 20:24 Amorphous Sediment Many (Few) H 11/02/17 20:24 Granular Casts Few per lpf (None Seen) H 11/02/17 20:24 Influenza Type B (PCR) DETECTED (Not Detect) A 11/03/17 03:45 - Microbiology Findings Microbiology Findings: Microbiology, Last 48 Hours 11/03/17 03:45 Sputum Culture - Final Sputum Staphylococcus aureus - Clinical Findings Intake & Output: Intake & Output 11/05/17 11/06/17 11/06/17 23:59 07:59 15:59 Intake Total 1971 / 1971 1963 / 1963 495 / 495 Output Total 200 / 200 350 / 350 Balance 1772 / 1772 1614 / 1614 495 / 495 Weight 82.1 kg
--- NOTE | 2017-11-06 09:04 | Nephrology Progress Note ---
Date of Encounter: 11/06/17 Time of Encounter: 09:02 - Assessment and Plan (1) RUSTY (acute kidney injury) Current Visit: Yes Status: Acute Patient has mild improvement in kidney function today. Patient remains oliguric as of yesterday. Today her UO is 350 as of 9 AM, expecting her to become non-oliguric today. Patient remains hypovolemic to mildly euvolemic. Nephrology at this time does not recommend Diuretics or BEHAVIORAL HEALTH ASSISTANT. RUSTY is likely due to volume status, supported by clinical exam, BP and Kylie <20. We recommend patient to be continued on fluids and Bolus IVF if needed for BP support. Per primary team, they will have discussion with family about goals of care. - we will order Kylie in the AM - avoid nephrotoxins as able to - renal dose medications - strict I/O - continue IV fluids. (2) Acute respiratory failure Current Visit: Yes Status: Acute per critical care team Qualifiers: Respiratory failure complication: hypoxia Qualified Code(s): J96.01 - Acute respiratory failure with hypoxia (3) Influenza B Current Visit: Yes Status: Acute per critical care team. (4) Severe sepsis Current Visit: Yes Status: Acute per critical care team Subjective Principal diagnosis: multifocal pneumonia and influneza B Interval history: Ms Hooper was seen and examined. Patient remains intubated today. Patients pH dropped last night but no other events overnight. Due to patients current intubation, hx and ROS was not attainable. Objective - Vital Signs Vital signs: Vital Signs Temp Pulse Resp BP Pulse Ox 11/06/17 08:00 118 26 114/57 93 11/06/17 07:00 123 21 126/66 100 11/06/17 06:00 118 20 119/63 97 11/06/17 05:05 20 112/61 95 11/06/17 05:00 118 21 112/61 97 11/06/17 04:00 97.6 F 120 20 116/62 95 11/06/17 03:40 20 120/64 96 11/06/17 03:00 125 20 148/65 95 11/06/17 02:00 115 20 116/60 97 11/06/17 01:17 20 122/59 97 11/06/17 01:00 116 20 122/59 97 11/06/17 00:27 97.7 F 11/06/17 00:00 116 20 128/67 97 11/05/17 23:17 20 111/57 97 11/05/17 23:00 111 20 111/57 97 11/05/17 22:00 113 20 114/66 97 11/05/17 21:05 20 124/66 97 11/05/17 21:00 115 20 124/66 97 11/05/17 20:10 96.7 F L 11/05/17 20:00 120 11/05/17 19:17 20 102/61 96 11/05/17 18:30 106 20 103/60 95 11/05/17 17:30 126 25 141/68 95 11/05/17 17:22 26 95 11/05/17 16:20 98.4 F 129 26 134/70 95 11/05/17 15:23 28 154/95 96 11/05/17 15:20 128 24 154/90 95 11/05/17 14:15 122 24 137/83 94 11/05/17 13:40 28 141/81 96 11/05/17 13:20 122 25 136/73 95 11/05/17 12:17 130 28 166/92 97 11/05/17 11:18 31 139/76 96 11/05/17 11:10 127 29 139/76 96 11/05/17 10:30 115 25 149/69 95 11/05/17 09:20 118 30 132/62 96 11/05/17 09:08 28 97 Intake and Output 11/05/17 11/06/17 11/06/17 23:59 07:59 15:59 Intake Total 1971 / 1971 1963 / 1963 500 / 500 Output Total 200 / 200 350 / 350 Balance 1772 / 1772 1614 / 1614 500 / 500 Intake: IV Fluids 707 / 707 1310 / 1310 500 / 500 0.9 % Sodium Chloride 1,000 ML 37 / 37 @ 75 mls/hr IVC .[id number] [facility] Rx #:[id number] PRECEDEX Premix 400 mcg In 100 100 / 100 ml @ 0.2 MCG/KG/HR 3.915 mls/hr IVC .Q24H [facility] Rx#:[id number] FentaNYL (PF) 1,000 MCG In 0.9 70 / 70 200 / 200 100 / 100 % Sodium Chloride 80 ML @ 50 MCG/HR 5 mls/hr IVC CONT [facility] Rx #:[id number] Diprivan 1,000 mg In 100 ml @ 100 / 100 100 / 100 100 / 100 10 MCG/KG/MIN 4.74 mls/hr IVC . Q21H6M [facility] Rx#:[id number] Lactated Ringers 1,000 ML @ 75 1000 / 1000 200 / 200 mls/hr IVC .[id number] [facility] Rx#: [id number] Lactated Ringers 500 ML @ 1000 500 / 500 mls/hr IVC .Q30M ONE Rx#: [id number] Ancef 1,000 MG In Water for inj . (sterile) 10 ML @ 200 mls/hr IVPB Q12H [facility] Rx#:[id number] Tube Feeding 1115 / 1115 504 / 504 Free Water Intake Amount 150 / 150 150 / 150 Output: Catheter 200 / 200 350 / 350 Other: Stool Size Small Stool Consistency loose Stool Color Brown Green # Bowel Movements 1 Weight 82.1 kg Blood Glucose* 182 226 Patient Weight 11/06/17 23:59 Weight 82.1 kg - General Appearance General appearance: Present: appears started age, obese, sedated on ventilator, intubated EENT: Absent: hearing aids present Neck: Present: supple Respiratory: Present: wheezing (diffuse wheezing) Cardiology: Present: no edema (patient has mild swelling in feet but no pitting edema.), rapid rhythm Gastrointestinal: Present: hypoactive bowel sounds Integumentary: Present: warm and dry - Lab 11/06/17 04:15 11/06/17 04:15 Most recent lab results ABG pH 7.15 pH Units (7.32-7.45) L* 11/06/17 04:17 ABG pCO2 59 mmHg (35-45) H 11/06/17 04:17 ABG pO2 84 mmHg (85-104) L 11/06/17 04:17 ABG HCO3 21 mEq/L (21-27) 11/06/17 04:17 ABG O2 Saturation 92 % (95-98) L 11/06/17 04:17 Calcium 8.3 mg/dL (8.6-10.3) L 11/06/17 04:15 Phosphorus 5.1 mg/dL (2.7-4.5) H 11/06/17 04:15 Magnesium 3.1 mg/dL (1.6-2.6) H 11/06/17 04:15 Urine Creatinine < 1 mg/dL 11/04/17 09:10 Urine Sodium < 10.0 mEq/L 11/04/17 09:10 Consult Discharge Plan - Plan Referrals: Chato Guardado CNP [Primary Care Provider] -
[2017-11-06] MEDS ORDERED: Furosemide 20 MG/2 ML VIAL IVP ONE (10:53)
[2017-11-06] MEDS: Dexmedetomidine HCl 400 MCG/100 ML MLS IVC SCH ×2 (10:55→17:45)
[2017-11-06] MEDS: ceFAZolin 1,000 MG in Water for inj. (sterile) 20 ML 10 ML IVPB SCH (11:34)
[2017-11-06] MEDS: FentaNYL (PF) 2,500 MCG in EMPTY BAG 50 EACH IVC SCH (12:27)
[2017-11-06 15:41] LABS: Calcium 8.2 mg/dL (8.6-10.3); Magnesium 2.9 mg/dL (1.6-2.6); Potassium 4.5 mEq/L (3.5-5.1)
[2017-11-06] MEDS ORDERED: Potassium Chloride 10 MEQ in 0.9 % Sodium Chloride 100 ML IVPB PRN (19:00)
[2017-11-06 20:41] LABS: ABG Base Excess -5 mEq/L (-2 to 3); ABG HCO3 21 mEq/L (21-27); ABG Oxygen Saturation 94 % (95-98); ABG PCO2 46 mmHg (35-45); ABG PH 7.27 pH Units (7.32-7.45); ABG PO2 82 mmHg (85-104); ABG TCO2 23 mEq/L (20-26); Blood Gas Modality ASSIST CONTROL; Blood Gas PEEP 5 cm H2O; Blood Gas Respiration Rate 26; Blood Gas VT 420 cc
[2017-11-06] MEDS ORDERED: Insulin DETEMIR 100 UNIT/ML X5UNITS SQ SCH (21:00)
[2017-11-07] MEDS: ceFAZolin 1,000 MG in Water for inj. (sterile) 20 ML 10 ML IVPB SCH ×2 (00:07→11:01)
[2017-11-07] MEDS: MethylPREDNISolone 40 MG/ML VIAL IVP SCH ×2 (00:07→07:27)
[2017-11-07] MEDS: Lacri-Lube 3.5 GM TUBE BOTH EYES SCH ×6 (00:08→22:13)
[2017-11-07] MEDS: Insulin LISPRO 300 UNITS/3 ML VIAL SQ SCH ×6 (00:08→22:13)
[2017-11-07] MEDS: Dexmedetomidine HCl 400 MCG/100 ML MLS IVC SCH ×4 (01:03→22:13)
[2017-11-07] MEDS: Ipratropium/Albuterol Neb 3 ML IH SCH ×6 (03:00→23:10)
[2017-11-07] MEDS: FentaNYL (PF) 2,500 MCG in EMPTY BAG 50 EACH IVC SCH ×2 (03:37→16:14)
[2017-11-07 03:54] LABS: Basophils % 0.1 %; Hematocrit 27.6 % (35.3-44.9); Hemoglobin 9.5 g/dL (11.5-15.4); Immature Granulocytes % 2.4 % (0-4); Lymphocytes # 0.2 K/mcL (0.6-4.6); Lymphocytes % 2.4 %; Mean Corpuscular HGB Conc 34.4 g/dL (31.6-35.5); Mean Corpuscular Hemoglobin 34.9 pg (28.0-33.3); Mean Corpuscular Volume 101.5 fL (83.0-100.0); Mean Platelet Volume 11.1 fL (9.4-12.4); Monocytes # 0.8 K/mcL (0.0-1.3); Monocytes % 8.9 %; Neutrophils # 7.7 K/mcL (1.6-8.9); Nucleated Red Blood Cells 0.2 /100 WBC (0); Platelet Count 152 K/mcL (140-400); Red Blood Count 2.72 M/mcL (3.82-4.97); Red Cell Distribution Width 16.4 % (11.5-14.5); Segmented Neutrophils % 86.2 %
[2017-11-07 04:12] LABS: Calcium 8.2 mg/dL (8.6-10.3); Magnesium 2.9 mg/dL (1.6-2.6); Phosphorous 3.9 mg/dL (2.7-4.5); Potassium 4.7 mEq/L (3.5-5.1)
[2017-11-07 04:26] LABS: ABG Base Excess -7 mEq/L (-2 to 3); ABG HCO3 19 mEq/L (21-27); ABG Oxygen Saturation 92 % (95-98); ABG PCO2 40 mmHg (35-45); ABG PH 7.28 pH Units (7.32-7.45); ABG PO2 73 mmHg (85-104); ABG TCO2 20 mEq/L (20-26); Blood Gas Modality PRVC; Blood Gas PEEP 5 cm H2O; Blood Gas Respiration Rate 26; Blood Gas VT 420 cc
[2017-11-07] MEDS: *HR* Heparin 5,000 UNIT/ML VIAL SQ SCH ×3 (04:57→22:16)
[2017-11-07] MEDS: Chlorhexidine Rinse 15 ML MOUTHWASH MM SCH ×2 (07:27→22:12)
[2017-11-07] MEDS: Pantoprazole 40 MG VIAL IVP SCH (07:27)
[2017-11-07] MEDS: Ringers Solution, Lactated 1,000 ML IVC SCH ×2 (07:27→22:15)
[2017-11-07] MEDS: Oseltamivir Phosphate 30 MG CAPSULE PO SCH (07:31)
--- NOTE | 2017-11-07 08:22 | Pulmonology Progress Note ---
<AnitaGenaro W - Last Filed: 11/07/17 09:44> Date of Encounter: 11/07/17 Objective PUL Vital signs: Last Vital Signs Temp 98.5 F 11/07/17 07:26 Pulse 108 11/07/17 09:00 Resp 30 11/07/17 09:00 BP 149/90 11/07/17 09:00 Pulse Ox 97 11/07/17 09:00 Ventilator Settings Ventilator Settings: Ventilator Settings, Last 8 Hours Ventilator Mode VC+ Ventilator Mode VC+ Ventilator Mode VC+ Ventilator Mode VC+ Ventilator Mode VC+ Ventilator Mode VC+ Ventilator Mode VC+ Ventilator Mode VC+ Ventilator Mode VC+ Ventilator Mode VC+ Ventilator Mode VC+ Ventilator Tidal Volume 420 Setting Ventilator Tidal Volume 420 Setting Ventilator Tidal Volume 420 Setting Ventilator Tidal Volume 420 Setting Ventilator Tidal Volume 420 Setting Ventilator Tidal Volume 420 Setting Ventilator Tidal Volume 420 Setting Ventilator Tidal Volume 420 Setting Ventilator Tidal Volume 420 Setting Ventilator Tidal Volume 420 Setting Ventilator Tidal Volume 420 Setting Ventilator Respiratory Rate 26 Setting Ventilator Respiratory Rate 26 Setting Ventilator Respiratory Rate 26 Setting Ventilator Respiratory Rate 26 Setting Ventilator Respiratory Rate 26 Setting Ventilator Respiratory Rate 26 Setting Ventilator Respiratory Rate 26 Setting Ventilator Respiratory Rate 26 Setting Ventilator Respiratory Rate 26 Setting Ventilator Respiratory Rate 26 Setting Ventilator Respiratory Rate 26 Setting Actual Respiratory Rate 30 Actual Respiratory Rate 28 Actual Respiratory Rate 27 Actual Respiratory Rate 27 Actual Respiratory Rate 27 Actual Respiratory Rate 26 Actual Respiratory Rate 26 Actual Respiratory Rate 26 Actual Respiratory Rate 26 Actual Respiratory Rate 26 Positive End Expiratory 5 Pressure Positive End Expiratory 5 Pressure Positive End Expiratory 5 Pressure Positive End Expiratory 5 Pressure Positive End Expiratory 5 Pressure Positive End Expiratory 5 Pressure Positive End Expiratory 5 Pressure Positive End Expiratory 5 Pressure Positive End Expiratory 5 Pressure Positive End Expiratory 5 Pressure Positive End Expiratory 5 Pressure Peak Inspiratory Airway 30 Pressure Peak Inspiratory Airway 30 Pressure Peak Inspiratory Airway 32 Pressure Peak Inspiratory Airway 31 Pressure Peak Inspiratory Airway 31 Pressure Peak Inspiratory Airway 32 Pressure Peak Inspiratory Airway 32 Pressure Peak Inspiratory Airway 30 Pressure Peak Inspiratory Airway 32 Pressure Peak Inspiratory Airway 32 Pressure Results - Laboratory Findings CBC and BMP: 11/07/17 03:40 11/07/17 03:40 ABG ABG pH 7.28 pH Units (7.32-7.45) L 11/07/17 04:22 ABG pCO2 40 mmHg (35-45) 11/07/17 04:22 ABG pO2 73 mmHg (85-104) L 11/07/17 04:22 ABG O2 Saturation 92 % (95-98) L 11/07/17 04:22 PT/INR, D-dimer PT 15.8 Seconds (9.4-12.1) H 11/02/17 18:42 Abnormal lab findings: Abnormal lab results RBC 2.72 M/mcL (3.82-4.97) L 11/07/17 03:40 Hgb 9.5 g/dL (11.5-15.4) L 11/07/17 03:40 Hct 27.6 % (35.3-44.9) L 11/07/17 03:40 MCV 101.5 fL (83.0-100.0) H 11/07/17 03:40 MCH 34.9 pg (28.0-33.3) H 11/07/17 03:40 RDW 16.4 % (11.5-14.5) H 11/07/17 03:40 Band Neutrophils % 15.0 % (0-4) H 11/03/17 04:15 Metamyelocytes % 1.0 % (0) H 11/03/17 04:15 Lymphocytes # 0.2 K/mcL (0.6-4.6) L 11/07/17 03:40 Nucleated RBCs/100 WBC 0.2 /100 WBC (0) H 11/07/17 03:40 Reactive Lymphocytes Present (Not Present) A 11/04/17 03:50 Toxic Granulation Present (Not Present) A 11/04/17 03:50 Dohle Bodies Present (Not Present) A 11/04/17 03:50 PT 15.8 Seconds (9.4-12.1) H 11/02/17 18:42 ABG pH 7.28 pH Units (7.32-7.45) L 11/07/17 04:22 ABG pO2 73 mmHg (85-104) L 11/07/17 04:22 ABG HCO3 19 mEq/L (21-27) L 11/07/17 04:22 ABG O2 Saturation 92 % (95-98) L 11/07/17 04:22 ABG Base Excess -7 mEq/L (-2 to 3) L 11/07/17 04:22 Chloride 113 mEq/L (98-107) H 11/07/17 03:40 Carbon Dioxide 20 mEq/L (23-29) L 11/07/17 03:40 BUN 120 mg/dL (8-23) H 11/07/17 03:40 Creatinine 3.33 mg/dL (0.60-1.20) H 11/07/17 03:40 Est GFR ( Amer) 16 (> 60) L 11/07/17 03:40 Est GFR (Non-Af Amer) 13 (> 60) L 11/07/17 03:40 BUN/Creatinine Ratio 36 (6-26) H 11/07/17 03:40 Glucose 259 mg/dL (70-105) H 11/07/17 03:40 POC Glucose 270 mg/dL (70-99) H 11/06/17 23:32 Hemoglobin A1c 5.8 % (-5.6) H 11/02/17 22:40 Calculated Osmolality 341 (280-300) H 11/07/17 03:40 Calcium 8.2 mg/dL (8.6-10.3) L 11/07/17 03:40 Magnesium 2.9 mg/dL (1.6-2.6) H 11/07/17 03:40 Total Bilirubin 1.2 mg/dL (0.3-1.0) H 11/02/17 18:42 Troponin I 0.05 ng/mL (< 0.04) H* 11/03/17 07:25 B-Natriuretic Peptide 112 pg/mL (Less than 100) H 11/02/17 18:42 Ur Specimen Adequacy See below A 11/02/17 20:24 Urine Clarity Turbid (Clear) A 11/02/17 20:24 Ur Specific [place] 1.030 (1.010-1.025) H 11/02/17 20:24 Urine Protein >=300 mg/dL (Neg-Trace) H 11/02/17 20:24 Urine Ketones Trace mg/dL (Negative) H 11/02/17 20:24 Urine Blood Large (Negative) H 11/02/17 20:24 Urine Bilirubin Small (Negative) H 11/02/17 20:24 Urine Microscopic WBC 5-15 per hpf (0-3) H 11/02/17 20:24 Ur Squamous Epith Cells Many per lpf (None-Few) H 11/02/17 20:24 Amorphous Sediment Many (Few) H 11/02/17 20:24 Granular Casts Few per lpf (None Seen) H 11/02/17 20:24 Influenza Type B (PCR) DETECTED (Not Detect) A 11/03/17 03:45 - Microbiology Findings Microbiology Findings: Microbiology, Last 48 Hours 11/03/17 03:45 Sputum Culture - Final Sputum Staphylococcus aureus - Clinical Findings Intake & Output: Intake & Output 11/06/17 11/07/17 11/07/17 23:59 07:59 15:59 Intake Total 584 / 584 1701 / 1701 Output Total 300 / 300 600 / 600 Balance 284 / 284 1101 / 1101 Weight 82.8 kg Consult Discharge Plan - Plan Referrals: Chato Guardado CNP [Primary Care Provider] - - Attending Attestation I examined this patient and my medical decision-making was reviewed with the Resident Physician. I agree with the documented findings, disposition and treatment plan as described except to the extent set forth below. We independently had [id number] contact with the patient Patient seen and examined at bedside Labs, radiology, chart personally reviewed. Management was reviewed during multidisciplinary critical care rounds. TREE EXPERT: Appears less agitated today but clearly remains encephalopathic during spontaneous awake trial will again try to hold all sedation except for Precedex at present continue to monitor. This is a combination of medication effect, critical illness, and metabolic encephalopathy from increased BUN Pulm: Acute respiratory failure on vent acceptable gas exchange today I suspect component of underlying hydrostatic pulmonary edema is complicating her respiratory status however it has been difficult to diurese because of kidney injury. Okay to stop steroids today continue bronchodilators and antimicrobials for pneumonia Cards: Blood pressure monitored and stable continue monitoring on telemetry FEN-GI: Continue enteral nutrition continue GI prophylaxis Renal: AK I slowly appears to be improving nephrology following this may be prerenal azotemia complicated by ATN total body water overload but intravascularly appears dry we will continue crystalloid for this continue to monitor serum creatinine and electrolytes ID: Influenza B complicated by MSSA PNA on cefazolin plan to treat for 10 days based upon clinical course Heme/Onc: DVT prophylaxis given Endo: Glucose Monitored Integ/MSK: Skin Care per routine ICU Nursing Protocol to prevent ulcers. Lines: All lines examined without evidence of infection : Dispo: Remain in ICU for vent management CODE: DNAR. <Paris Wright - Last Filed: 11/07/17 10:42> Date of Encounter: 11/07/17 Time of Encounter: 08:22 Assessment and Plan (1) Severe sepsis Current Visit: Yes Status: Acute Severe sepsis secondary to multifocal pneumonia and influenza B. On presentation, Patient had an elevated lactate acid, tachycardia, tachypnea, leukocytosis, fever, and source of infection. Lactic acid is now within normal limits. Patient is still tachycardic and ventilated. She is afebrile. White blood cell count has decreased. Legionella and strep pneumoniae name negative and urine. Sputum culture growing staph aureus. Blood cultures negative. Patient was on LR 75 mg maintenance overnight. LR was stopped this morning Lasix 20 was given LR maintenance was restarted. Worsening tachycardia most likely 2/2 to metabolic acidosis not worsening infection. Plan: - Cefazolin 1g Q12 hrs ( day 4) - Stopped Vancomycin, Zosyn and levoquin - last dose of Tamiflu day 12/05 - blood pressure remaining stable without pressors - LR 75 mL per hour maintenance (2) Acute respiratory failure Current Visit: Yes Status: Acute Acute respiratory failure secondary to multifocal pneumonia and influenza B. Initially on BiPAP in the ED but required intubation. Most recent ABG showed pH 7.21, CO2 51, O2 78, CO3 23. ABG today showed, Resp acidosis and metabolic acidosis non-anion gap today. Currently fighting the vent despite the sedation with increasing tachypnea and belly breathing. Will increase sedation and obtain head CT. Head CT negative for acute process. Plan: - continue ventilator support - sedation: continue Precedex, currently off Fentanyl and Propofol - Albuterol every 2 hours prn, Duonebs Q4hr lidia - d/c Solu-Medrol 40 every 8H - Diet: start Tube feeds, increased to high SSI, levemir increased Qualifiers: Respiratory failure complication: hypoxia Qualified Code(s): J96.01 - Acute respiratory failure with hypoxia (3) Multifocal pneumonia Current Visit: Yes Status: Acute 2/2 to staph aureus. See plan above. We will stop vancomycin, Zosyn and Levaquin. Continue cefazolin 1 g every 12 hours renally dosed for decreased creatinine clearance. (4) Hyperglycemia Current Visit: Yes Status: Acute A1c= 5.8, prediabetic. Increase to high SSI. Glucose is elevated and continues to be elevated. Increased Basal insulin 10 units PM. Added Levemir 5 units AM. (5) Ovarian cancer Current Visit: Yes Status: Acute Ovarian cancer with metastasis. Currently being treated in [place]. Patient is on chemotherapy agents. Qualifiers: Laterality: unspecified laterality Qualified Code(s): C56.9 - Malignant neoplasm of unspecified ovary (6) CAD (coronary artery disease) Current Visit: Yes Status: Chronic Hx of CAD with stents. Elevated troponins with a max of 0.05. Last troponin = 0.01. Most likely secondary to demand ischemia from hypoxia Qualifiers: Coronary Disease-Associated Artery/Lesion type: [place] artery [place] vs. transplanted heart: [place] heart Associated angina: angina presence unspecified Qualified Code(s): I25.10 - Atherosclerotic heart disease of [place] coronary artery without angina pectoris (7) Influenza B Current Visit: Yes Status: Acute Continue tamiflu, last day of Tamiflu (8) RUSTY (acute kidney injury) Current Visit: Yes Status: Acute Elevated creatinine. Unsure baseline as patient has not been to this hospital in 2 years. Baseline 2 years ago was within normal limits. US so kidney showed no hydronephrosis or stone blockage. FeNA= 25. Bladder scan was obtained which did not show urinary retention. Patient has a Fraser catheter in. Unsure what is causing post-renal RUSTY. Vancomycin was stopped yesterday and creatinine continued to rise. LR at 75 mL per hour. Creatinine improved. BUN worsened. Plan: - Consult to nephrology, appreciate recommendations - Stopped Vancomycin (9) DVT prophylaxis Current Visit: Yes Status: Acute Heparin SQ Subjective Principal diagnosis: multifocal pneumonia and influneza B Interval history: Ms. Hooper is a 77 year old female with past medical history of CAD with stents , HTN, and ovarian cancer with mets presented to the ED with SOB and patient was found to be in acute respiratory failure 2/2 influenza B and multifocial pneumonia. Patient is currently sedated on Precedex and is not responding to commands and is sinus tachycardic. Yesterday discussed with the granddaughter and daughter about the gravity of her condition. Unable to obtain ROS as patient is intubated. Objective PUL Vital signs: Last Vital Signs Temp 98.5 F 11/07/17 07:26 Pulse 105 11/07/17 08:00 Resp 28 11/07/17 08:00 BP 147/82 11/07/17 08:00 Pulse Ox 98 11/07/17 08:00 Constitutional: intubated, resting comfortably Head: Normocephalic, atraumatic Heart: tachycardic, regular rhythm, no murmurs Lungs: Tachypnic, rhonchi, intubated on ventilator Abdomen: Soft, nondistended, nontender, no guarding or rigidity. Extremities: upper extremities swelling in hands and +1 pitting edema bilaterally pedal, No clubbing capillary refill <2sec. Skin: Skin warm and dry, no lesions, no rashes, no jaundice Neurologic: currently not responding to commands, not opening eyes to verbal stimuli, grimacing with sternal rub, LInes: PIV, med port Ventilator Settings Ventilator Settings: Ventilator Settings, Last 8 Hours Ventilator Mode VC+ Ventilator Mode VC+ Ventilator Mode VC+ Ventilator Mode VC+ Ventilator Mode VC+ Ventilator Mode VC+ Ventilator Mode VC+ Ventilator Mode VC+ Ventilator Mode VC+ Ventilator Mode VC+ Ventilator Mode VC+ Ventilator Tidal Volume 420 Setting Ventilator Tidal Volume 420 Setting Ventilator Tidal Volume 420 Setting Ventilator Tidal Volume 420 Setting Ventilator Tidal Volume 420 Setting Ventilator Tidal Volume 420 Setting Ventilator Tidal Volume 420 Setting Ventilator Tidal Volume 420 Setting Ventilator Tidal Volume 420 Setting Ventilator Tidal Volume 420 Setting Ventilator Tidal Volume 420 Setting Ventilator Respiratory Rate 26 Setting Ventilator Respiratory Rate 26 Setting Ventilator Respiratory Rate 26 Setting Ventilator Respiratory Rate 26 Setting Ventilator Respiratory Rate 26 Setting Ventilator Respiratory Rate 26 Setting Ventilator Respiratory Rate 26 Setting Ventilator Respiratory Rate 26 Setting Ventilator Respiratory Rate 26 Setting Ventilator Respiratory Rate 26 Setting Ventilator Respiratory Rate 26 Setting Actual Respiratory Rate 28 Actual Respiratory Rate 27 Actual Respiratory Rate 27 Actual Respiratory Rate 27 Actual Respiratory Rate 26 Actual Respiratory Rate 26 Actual Respiratory Rate 26 Actual Respiratory Rate 26 Actual Respiratory Rate 26 Actual Respiratory Rate 26 Positive End Expiratory 5 Pressure Positive End Expiratory 5 Pressure Positive End Expiratory 5 Pressure Positive End Expiratory 5 Pressure Positive End Expiratory 5 Pressure Positive End Expiratory 5 Pressure Positive End Expiratory 5 Pressure Positive End Expiratory 5 Pressure Positive End Expiratory 5 Pressure Positive End Expiratory 5 Pressure Positive End Expiratory 5 Pressure Peak Inspiratory Airway 30 Pressure Peak Inspiratory Airway 32 Pressure Peak Inspiratory Airway 31 Pressure Peak Inspiratory Airway 31 Pressure Peak Inspiratory Airway 32 Pressure Peak Inspiratory Airway 32 Pressure Peak Inspiratory Airway 30 Pressure Peak Inspiratory Airway 32 Pressure Peak Inspiratory Airway 32 Pressure Peak Inspiratory Airway 32 Pressure Results - Laboratory Findings CBC and BMP: 11/07/17 03:40 11/07/17 03:40 ABG ABG pH 7.28 pH Units (7.32-7.45) L 11/07/17 04:22 ABG pCO2 40 mmHg (35-45) 11/07/17 04:22 ABG pO2 73 mmHg (85-104) L 11/07/17 04:22 ABG O2 Saturation 92 % (95-98) L 11/07/17 04:22 PT/INR, D-dimer PT 15.8 Seconds (9.4-12.1) H 11/02/17 18:42 Abnormal lab findings: Abnormal lab results RBC 2.72 M/mcL (3.82-4.97) L 11/07/17 03:40 Hgb 9.5 g/dL (11.5-15.4) L 11/07/17 03:40 Hct 27.6 % (35.3-44.9) L 11/07/17 03:40 MCV 101.5 fL (83.0-100.0) H 11/07/17 03:40 MCH 34.9 pg (28.0-33.3) H 11/07/17 03:40 RDW 16.4 % (11.5-14.5) H 11/07/17 03:40 Band Neutrophils % 15.0 % (0-4) H 11/03/17 04:15 Metamyelocytes % 1.0 % (0) H 11/03/17 04:15 Lymphocytes # 0.2 K/mcL (0.6-4.6) L 11/07/17 03:40 Nucleated RBCs/100 WBC 0.2 /100 WBC (0) H 11/07/17 03:40 Reactive Lymphocytes Present (Not Present) A 11/04/17 03:50 Toxic Granulation Present (Not Present) A 11/04/17 03:50 Dohle Bodies Present (Not Present) A 11/04/17 03:50 PT 15.8 Seconds (9.4-12.1) H 11/02/17 18:42 ABG pH 7.28 pH Units (7.32-7.45) L 11/07/17 04:22 ABG pO2 73 mmHg (85-104) L 11/07/17 04:22 ABG HCO3 19 mEq/L (21-27) L 11/07/17 04:22 ABG O2 Saturation 92 % (95-98) L 11/07/17 04:22 ABG Base Excess -7 mEq/L (-2 to 3) L 11/07/17 04:22 Chloride 113 mEq/L (98-107) H 11/07/17 03:40 Carbon Dioxide 20 mEq/L (23-29) L 11/07/17 03:40 BUN 120 mg/dL (8-23) H 11/07/17 03:40 Creatinine 3.33 mg/dL (0.60-1.20) H 11/07/17 03:40 Est GFR ( Amer) 16 (> 60) L 11/07/17 03:40 Est GFR (Non-Af Amer) 13 (> 60) L 11/07/17 03:40 BUN/Creatinine Ratio 36 (6-26) H 11/07/17 03:40 Glucose 259 mg/dL (70-105) H 11/07/17 03:40 POC Glucose 270 mg/dL (70-99) H 11/06/17 23:32 Hemoglobin A1c 5.8 % (-5.6) H 11/02/17 22:40 Calculated Osmolality 341 (280-300) H 11/07/17 03:40 Calcium 8.2 mg/dL (8.6-10.3) L 11/07/17 03:40 Magnesium 2.9 mg/dL (1.6-2.6) H 11/07/17 03:40 Total Bilirubin 1.2 mg/dL (0.3-1.0) H 11/02/17 18:42 Troponin I 0.05 ng/mL (< 0.04) H* 11/03/17 07:25 B-Natriuretic Peptide 112 pg/mL (Less than 100) H 11/02/17 18:42 Ur Specimen Adequacy See below A 11/02/17 20:24 Urine Clarity Turbid (Clear) A 11/02/17 20:24 Ur Specific [place] 1.030 (1.010-1.025) H 11/02/17 20:24 Urine Protein >=300 mg/dL (Neg-Trace) H 11/02/17 20:24 Urine Ketones Trace mg/dL (Negative) H 11/02/17 20:24 Urine Blood Large (Negative) H 11/02/17 20:24 Urine Bilirubin Small (Negative) H 11/02/17 20:24 Urine Microscopic WBC 5-15 per hpf (0-3) H 11/02/17 20:24 Ur Squamous Epith Cells Many per lpf (None-Few) H 11/02/17 20:24 Amorphous Sediment Many (Few) H 11/02/17 20:24 Granular Casts Few per lpf (None Seen) H 11/02/17 20:24 Influenza Type B (PCR) DETECTED (Not Detect) A 11/03/17 03:45 - Microbiology Findings Microbiology Findings: Microbiology, Last 48 Hours 11/03/17 03:45 Sputum Culture - Final Sputum Staphylococcus aureus - Clinical Findings Intake & Output: Intake & Output 11/06/17 11/07/17 11/07/17 23:59 07:59 15:59 Intake Total 584 / 584 1701 / 1701 Output Total 300 / 300 600 / 600 Balance 284 / 284 1101 / 1101 Weight 82.8 kg
[2017-11-07] MEDS: Insulin DETEMIR 100 UNIT/ML X5UNITS SQ SCH ×2 (08:48→22:17)
--- NOTE | 2017-11-07 10:49 | Nephrology Progress Note ---
Date of Encounter: 11/07/17 Time of Encounter: 10:47 - Assessment and Plan (1) RUSTY (acute kidney injury) Current Visit: Yes Status: Acute Patient with RUSTY that is improving. Continue gentle hydration. I anticipate continued improvement in renal function. Subjective Principal diagnosis: multifocal pneumonia and influneza B Interval history: Patient seen. She is intubated and sedated. ROS is unobtainable. Objective - Vital Signs Vital signs: Vital Signs Temp Pulse Resp BP Pulse Ox 11/07/17 10:00 103 28 127/67 98 11/07/17 09:49 32 96 11/07/17 09:00 108 30 149/90 97 11/07/17 08:00 105 28 147/82 98 11/07/17 07:36 27 139/73 97 11/07/17 07:30 108 11/07/17 07:26 98.5 F 11/07/17 07:00 105 27 124/66 96 11/07/17 06:00 105 26 132/65 98 11/07/17 05:00 108 26 124/66 96 11/07/17 04:54 98.5 F 11/07/17 04:00 109 26 125/63 95 11/07/17 03:01 26 108/53 95 11/07/17 03:00 110 26 108/53 95 11/07/17 02:00 110 26 110/52 95 11/07/17 01:00 110 26 106/54 95 11/07/17 00:25 98.5 F 11/07/17 00:00 111 26 113/53 93 11/06/17 23:28 26 98/55 97 11/06/17 23:00 110 26 98/55 95 11/06/17 22:00 115 28 121/61 92 11/06/17 21:08 30 111/60 96 11/06/17 21:00 107 27 111/60 96 11/06/17 20:00 98.3 F 107 28 109/52 96 11/06/17 19:00 107 30 106/51 96 11/06/17 18:00 108 26 108/48 94 11/06/17 17:17 28 131/56 95 11/06/17 17:00 113 28 131/56 95 11/06/17 16:00 98.7 F 115 29 133/64 95 11/06/17 15:12 28 131/56 95 11/06/17 15:00 108 29 115/51 96 11/06/17 14:00 107 29 105/71 95 11/06/17 13:03 28 114/61 95 11/06/17 13:00 98.0 F 108 27 114/61 94 11/06/17 12:00 109 26 105/53 95 11/06/17 11:35 26 114/61 93 11/06/17 11:00 122 26 120/57 94 Intake and Output 11/06/17 11/07/17 11/07/17 23:59 07:59 15:59 Intake Total 584 / 584 1701 / 1701 0 / 0 Output Total 300 / 300 600 / 600 Balance 284 / 284 1101 / 1101 0 / 0 Intake: IV Fluids 95 / 95 1419 / 1419 0 / 0 PRECEDEX Premix 400 mcg In 100 85 / 85 200 / 200 ml @ 0.2 MCG/KG/HR 3.915 mls/hr IVC .Q24H [facility] Rx#:[id number] FentaNYL (PF) 2,500 MCG In 75 / 75 0 / 0 Empty Bag 50 Each @ 50 MCG/HR 1 mls/hr IVC CONT [facility] Rx#: [id number] Diprivan 1,000 mg In 100 ml @ 10 / 10 144 / 144 0 / 0 10 MCG/KG/MIN 4.74 mls/hr IVC . Q21H6M [facility] Rx#:[id number] Lactated Ringers 1,000 ML @ 75 1000 / 1000 mls/hr IVC .[id number] [facility] Rx#: [id number] Tube Feeding 489 / 489 132 / 132 Free Water Intake Amount 150 / 150 Output: Rectal Tube 200 / 200 Catheter 300 / 300 400 / 400 Other: Stool Size Large Stool Consistency liquid Stool Color Brown Yellow # Bowel Movements 1 Weight 82.8 kg Blood Glucose* 231 250 Patient Weight 11/07/17 23:59 Weight 82.8 kg - General Appearance General appearance: Present: well-developed, well-nourished, sedated on ventilator, intubated EENT: Present: ATNC Neck: Present: supple Respiratory: Present: course breath sounds Cardiology: Present: no edema, regular rate Integumentary: Present: warm and dry Musculoskeletal: Present: no cyanosis - Lab 11/07/17 03:40 11/07/17 03:40 Most recent lab results ABG pH 7.28 pH Units (7.32-7.45) L 11/07/17 04:22 ABG pCO2 40 mmHg (35-45) 11/07/17 04:22 ABG pO2 73 mmHg (85-104) L 11/07/17 04:22 ABG HCO3 19 mEq/L (21-27) L 11/07/17 04:22 ABG O2 Saturation 92 % (95-98) L 11/07/17 04:22 Calcium 8.2 mg/dL (8.6-10.3) L 11/07/17 03:40 Phosphorus 3.9 mg/dL (2.7-4.5) 11/07/17 03:40 Magnesium 2.9 mg/dL (1.6-2.6) H 11/07/17 03:40 Urine Creatinine < 1 mg/dL 11/04/17 09:10 Urine Sodium < 10.0 mEq/L 11/04/17 09:10 Consult Discharge Plan - Plan Referrals: Chato Guardado CNP [Primary Care Provider] -
--- NOTE | 2017-11-07 13:30 | Electrocardiograph Report ---
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
[2017-11-07 14:00] LABS: INR 1.1; Prothrombin Time 11.6 Seconds (9.4-12.1)
[2017-11-08] MEDS: ceFAZolin 1,000 MG in Water for inj. (sterile) 20 ML 10 ML IVPB SCH ×3 (00:34→23:46)
[2017-11-08] MEDS: Insulin LISPRO 300 UNITS/3 ML VIAL SQ SCH ×7 (00:35→23:47)
[2017-11-08] MEDS: Lacri-Lube 3.5 GM TUBE BOTH EYES SCH ×7 (00:35→23:47)
[2017-11-08] MEDS: Ipratropium/Albuterol Neb 3 ML IH SCH ×6 (03:11→23:22)
[2017-11-08 03:19] LABS: Basophils % 0.1 %; Hematocrit 29.1 % (35.3-44.9); Hemoglobin 9.7 g/dL (11.5-15.4); Immature Granulocytes % 2.8 % (0-4); Lymphocytes # 0.9 K/mcL (0.6-4.6); Lymphocytes % 6.3 %; Mean Corpuscular HGB Conc 33.3 g/dL (31.6-35.5); Mean Corpuscular Volume 102.1 fL (83.0-100.0); Mean Platelet Volume 11.2 fL (9.4-12.4); Monocytes # 1.6 K/mcL (0.0-1.3); Monocytes % 11.7 %; Neutrophils # 10.9 K/mcL (1.6-8.9); Nucleated Red Blood Cells 0.2 /100 WBC (0); Platelet Count 163 K/mcL (140-400); Red Blood Count 2.85 M/mcL (3.82-4.97); Red Cell Distribution Width 16.5 % (11.5-14.5); Segmented Neutrophils % 79.1 %
[2017-11-08 03:38] LABS: Magnesium 2.6 mg/dL (1.6-2.6); Phosphorous 3.5 mg/dL (2.7-4.5)
[2017-11-08 06:20] LABS: ABG Base Excess -3 mEq/L (-2 to 3); ABG HCO3 23 mEq/L (21-27); ABG Oxygen Saturation 94 % (95-98); ABG PCO2 45 mmHg (35-45); ABG PH 7.32 pH Units (7.32-7.45); ABG PO2 74 mmHg (85-104); ABG TCO2 25 mEq/L (20-26); Blood Gas Modality PRVC; Blood Gas PEEP 5 cm H2O; Blood Gas Respiration Rate 26; Blood Gas VT 420 cc
[2017-11-08] MEDS: *HR* Heparin 5,000 UNIT/ML VIAL SQ SCH ×3 (07:19→19:54)
[2017-11-08] MEDS: Dexmedetomidine HCl 400 MCG/100 ML MLS IVC SCH ×4 (07:22→19:55)
--- NOTE | 2017-11-08 07:25 | Pulmonology Progress Note ---
<Quang Garrison - Last Filed: 11/08/17 09:47> Date of Encounter: 11/08/17 Time of Encounter: 07:25 Assessment and Plan (1) Acute respiratory failure Current Visit: Yes Status: Acute Secondary to multifocal pneumonia and influenza B. Sputum positive for S. aureus. Concern for volume overload with 3L positive fluid balance. Have been gently diuresing due to RUSTY alternating with gentle hydration for renal function. Still vent-dependent. Improving ABGs. Tachycardic/tachypneic. BP stable. Plan: -- Cont Cefazolin (day 11/10) -- Tamiflu complete -- Holding LR and Lasix -- Monitor Renal function qAM; nephrology onboard -- Cont bronchodilators; steroids discontinued -- ABGs qAM and adjust vent settings as needed -- Attempt vent wean in subsequent days as able -- Monitoring weights & I/Os Qualifiers: Respiratory failure complication: hypoxia Qualified Code(s): J96.01 - Acute respiratory failure with hypoxia (2) Multifocal pneumonia Current Visit: Yes Status: Acute Staph. aureus on sputum culture; on Cefazolin day 11/10 (3) Severe sepsis Current Visit: Yes Status: Acute as above; BPs stable and normotensive (4) RUSTY (acute kidney injury) Current Visit: Yes Status: Acute Creatinine continues to gradually improve, but BUN persists at 121. Nephrology onboard. Currently monitoring closely as patient is also clinically volume overloaded contributing to respiratory status. Holding IVF and diuretics; avoiding nephrotoxins. (5) Influenza B Current Visit: Yes Status: Acute Completed course of Tamiflu (6) Hyperglycemia Current Visit: Yes Status: Acute Markedly improved after discontinuation of Solu-medrol; 139 on most recent check. Will have to monitor closely and likely de-escalate SSI/Detemir. A1c was 5.8%. (7) Ovarian cancer Current Visit: Yes Status: Acute Ovarian cancer with metastasis. Currently being treated in [place]. Patient is on chemotherapy agents. Qualifiers: Laterality: unspecified laterality Qualified Code(s): C56.9 - Malignant neoplasm of unspecified ovary (8) CAD (coronary artery disease) Current Visit: Yes Status: Chronic H/o CAD with stents; did have some troponin elevations which plateaued likely representing volume overload / demand ischemia. Qualifiers: Coronary Disease-Associated Artery/Lesion type: [place] artery [place] vs. transplanted heart: [place] heart Associated angina: angina presence unspecified Qualified Code(s): I25.10 - Atherosclerotic heart disease of [place] coronary artery without angina pectoris (9) DVT prophylaxis Current Visit: Yes Status: Acute subcutaneous heparin Subjective Principal diagnosis: multifocal pneumonia and influneza B Interval history: Ms. Hooper is a 77 year old female with past medical history of CAD with stents , HTN, and ovarian cancer with mets presented to the ED with SOB and patient was found to be in acute respiratory failure 2/2 influenza B and multifocal pneumonia. Still vent-dependent. Attempting to wean sedation. Pt responsive to verbal and physical stimuli, but agitated and not cooperative or clearly lucid. BPs normotensive and stable; otherwise has been mildly tachycardic and tachypneic. Creatinine slightly improved overnight but with static BUN. FSBG markedly improved after discontinuation of Solu-medrol. Has had some diarrhea, so will check C. difficile. Consider SAT/SBT in AM. Objective PUL Vital signs: Last Vital Signs Temp 99 F 11/08/17 06:00 Pulse 115 11/08/17 06:00 Resp 28 11/08/17 06:00 BP 112/53 11/08/17 06:00 Pulse Ox 94 11/08/17 06:00 General appearance: no acute distress (comfortably sedated; agitated with suctioning per RN) Eyes: nonicteric Neck: supple Auscultation: bilateral: rhonchi (mild) Cardiovascular: other (tachycardic, but regular rhythm without murmurs or gallops) Gastrointestinal: soft (does not wince from palpation), non-distended Integumentary: normal Extremities: no cyanosis, pulses normal, edema (trace / mild pitting) unable to assess due to mental status Ventilator Settings Ventilator Settings: Ventilator Settings, Last 8 Hours Ventilator Mode VC+ Ventilator Mode VC+ Ventilator Mode VC+ Ventilator Mode VC+ Ventilator Mode VC+ Ventilator Mode VC+ Ventilator Mode VC+ Ventilator Mode VC+ Ventilator Mode VC+ Ventilator Mode VC+ Ventilator Tidal Volume 420 Setting Ventilator Tidal Volume 420 Setting Ventilator Tidal Volume 420 Setting Ventilator Tidal Volume 420 Setting Ventilator Tidal Volume 420 Setting Ventilator Tidal Volume 420 Setting Ventilator Tidal Volume 420 Setting Ventilator Tidal Volume 420 Setting Ventilator Tidal Volume 420 Setting Ventilator Tidal Volume 420 Setting Ventilator Respiratory Rate 26 Setting Ventilator Respiratory Rate 26 Setting Ventilator Respiratory Rate 26 Setting Ventilator Respiratory Rate 26 Setting Ventilator Respiratory Rate 26 Setting Ventilator Respiratory Rate 26 Setting Ventilator Respiratory Rate 26 Setting Ventilator Respiratory Rate 26 Setting Ventilator Respiratory Rate 26 Setting Ventilator Respiratory Rate 26 Setting Actual Respiratory Rate 28 Actual Respiratory Rate 26 Actual Respiratory Rate 26 Actual Respiratory Rate 26 Actual Respiratory Rate 27 Actual Respiratory Rate 27 Actual Respiratory Rate 26 Actual Respiratory Rate 27 Actual Respiratory Rate 27 Positive End Expiratory 5 Pressure Positive End Expiratory 5 Pressure Positive End Expiratory 5 Pressure Positive End Expiratory 5 Pressure Positive End Expiratory 5 Pressure Positive End Expiratory 5 Pressure Positive End Expiratory 5 Pressure Positive End Expiratory 5 Pressure Positive End Expiratory 5 Pressure Positive End Expiratory 5 Pressure Peak Inspiratory Airway 27 Pressure Peak Inspiratory Airway 27 Pressure Peak Inspiratory Airway 27 Pressure Peak Inspiratory Airway 27 Pressure Peak Inspiratory Airway 31 Pressure Peak Inspiratory Airway 31 Pressure Peak Inspiratory Airway 29 Pressure Peak Inspiratory Airway 31 Pressure Peak Inspiratory Airway 31 Pressure Results - Laboratory Findings CBC and BMP: 11/08/17 03:00 11/08/17 03:00 ABG ABG pH 7.32 pH Units (7.32-7.45) 11/08/17 06:17 ABG pCO2 45 mmHg (35-45) 11/08/17 06:17 ABG pO2 74 mmHg (85-104) L 11/08/17 06:17 ABG O2 Saturation 94 % (95-98) L 11/08/17 06:17 PT/INR, D-dimer PT 11.6 Seconds (9.4-12.1) 11/07/17 13:45 Abnormal lab findings: Abnormal lab results WBC 13.8 K/mcL (4.3-11.1) H D 11/08/17 03:00 RBC 2.85 M/mcL (3.82-4.97) L 11/08/17 03:00 Hgb 9.7 g/dL (11.5-15.4) L 11/08/17 03:00 Hct 29.1 % (35.3-44.9) L 11/08/17 03:00 MCV 102.1 fL (83.0-100.0) H 11/08/17 03:00 MCH 34.0 pg (28.0-33.3) H 11/08/17 03:00 RDW 16.5 % (11.5-14.5) H 11/08/17 03:00 Band Neutrophils % 15.0 % (0-4) H 11/03/17 04:15 Metamyelocytes % 1.0 % (0) H 11/03/17 04:15 Neutrophils # 10.9 K/mcL (1.6-8.9) H 11/08/17 03:00 Monocytes # 1.6 K/mcL (0.0-1.3) H 11/08/17 03:00 Nucleated RBCs/100 WBC 0.2 /100 WBC (0) H 11/08/17 03:00 Reactive Lymphocytes Present (Not Present) A 11/04/17 03:50 Toxic Granulation Present (Not Present) A 11/04/17 03:50 Dohle Bodies Present (Not Present) A 11/04/17 03:50 ABG pO2 74 mmHg (85-104) L 11/08/17 06:17 ABG O2 Saturation 94 % (95-98) L 11/08/17 06:17 ABG Base Excess -3 mEq/L (-2 to 3) L 11/08/17 06:17 Chloride 115 mEq/L (98-107) H 11/08/17 03:00 Carbon Dioxide 22 mEq/L (23-29) L 11/08/17 03:00 BUN 121 mg/dL (8-23) H 11/08/17 03:00 Creatinine 2.92 mg/dL (0.60-1.20) H 11/08/17 03:00 Est GFR ( Amer) 19 (> 60) L 11/08/17 03:00 Est GFR (Non-Af Amer) 16 (> 60) L 11/08/17 03:00 BUN/Creatinine Ratio 41 (6-26) H 11/08/17 03:00 Glucose 123 mg/dL (70-105) H 11/08/17 03:00 POC Glucose 153 mg/dL (70-99) H 11/07/17 23:00 Hemoglobin A1c 5.8 % (-5.6) H 11/02/17 22:40 Calculated Osmolality 332 (280-300) H 11/08/17 03:00 Calcium 8.0 mg/dL (8.6-10.3) L 11/08/17 03:00 Total Bilirubin 1.2 mg/dL (0.3-1.0) H 11/02/17 18:42 Troponin I 0.05 ng/mL (< 0.04) H* 11/03/17 07:25 B-Natriuretic Peptide 112 pg/mL (Less than 100) H 11/02/17 18:42 Ur Specimen Adequacy See below A 11/02/17 20:24 Urine Clarity Turbid (Clear) A 11/02/17 20:24 Ur Specific [place] 1.030 (1.010-1.025) H 11/02/17 20:24 Urine Protein >=300 mg/dL (Neg-Trace) H 11/02/17 20:24 Urine Ketones Trace mg/dL (Negative) H 11/02/17 20:24 Urine Blood Large (Negative) H 11/02/17 20:24 Urine Bilirubin Small (Negative) H 11/02/17 20:24 Urine Microscopic WBC 5-15 per hpf (0-3) H 11/02/17 20:24 Ur Squamous Epith Cells Many per lpf (None-Few) H 11/02/17 20:24 Amorphous Sediment Many (Few) H 11/02/17 20:24 Granular Casts Few per lpf (None Seen) H 11/02/17 20:24 Influenza Type B (PCR) DETECTED (Not Detect) A 11/03/17 03:45 - Clinical Findings Intake & Output: Intake & Output 11/07/17 11/07/17 11/08/17 15:59 23:59 07:59 Intake Total 1417 / 1417 1561 / 1561 818 / 818 Output Total 600 / 600 500 / 500 400 / 400 Balance 817 / 817 1061 / 1061 418 / 418 Weight 86 kg Consult Discharge Plan - Plan Referrals: Chato Guardado, AIDA [Primary Care Provider] - <Genaro Howard W - Last Filed: 11/08/17 11:48> Date of Encounter: 11/08/17 Objective PUL Vital signs: Last Vital Signs Temp 98.4 F 11/08/17 07:58 Pulse 103 11/08/17 11:00 Resp 26 11/08/17 11:23 BP 101/49 11/08/17 11:23 Pulse Ox 97 11/08/17 11:23 Ventilator Settings Ventilator Settings: Ventilator Settings, Last 8 Hours Ventilator Mode VC+ Ventilator Mode VC+ Ventilator Mode VC+ Ventilator Mode VC+ Ventilator Mode VC+ Ventilator Mode VC+ Ventilator Mode VC+ Ventilator Mode VC+ Ventilator Mode VC+ Ventilator Mode VC+ Ventilator Mode VC+ Ventilator Tidal Volume 420 Setting Ventilator Tidal Volume 420 Setting Ventilator Tidal Volume 420 Setting Ventilator Tidal Volume 420 Setting Ventilator Tidal Volume 420 Setting Ventilator Tidal Volume 420 Setting Ventilator Tidal Volume 420 Setting Ventilator Tidal Volume 420 Setting Ventilator Tidal Volume 420 Setting Ventilator Tidal Volume 420 Setting Ventilator Tidal Volume 420 Setting Ventilator Respiratory Rate 26 Setting Ventilator Respiratory Rate 26 Setting Ventilator Respiratory Rate 26 Setting Ventilator Respiratory Rate 26 Setting Ventilator Respiratory Rate 26 Setting Ventilator Respiratory Rate 498 Setting Ventilator Respiratory Rate 26 Setting Ventilator Respiratory Rate 26 Setting Ventilator Respiratory Rate 26 Setting Ventilator Respiratory Rate 26 Setting Ventilator Respiratory Rate 26 Setting Actual Respiratory Rate 26 Actual Respiratory Rate 26 Actual Respiratory Rate 26 Actual Respiratory Rate 27 Actual Respiratory Rate 28 Actual Respiratory Rate 28 Actual Respiratory Rate 28 Actual Respiratory Rate 28 Actual Respiratory Rate 26 Actual Respiratory Rate 26 Positive End Expiratory 5 Pressure Positive End Expiratory 5 Pressure Positive End Expiratory 5 Pressure Positive End Expiratory 5 Pressure Positive End Expiratory 5 Pressure Positive End Expiratory 5 Pressure Positive End Expiratory 5 Pressure Positive End Expiratory 5 Pressure Positive End Expiratory 5 Pressure Positive End Expiratory 5 Pressure Peak Inspiratory Airway 28 Pressure Peak Inspiratory Airway 26 Pressure Peak Inspiratory Airway 33 Pressure Peak Inspiratory Airway 26 Pressure Peak Inspiratory Airway 26 Pressure Peak Inspiratory Airway 26 Pressure Peak Inspiratory Airway 34 Pressure Peak Inspiratory Airway 27 Pressure Peak Inspiratory Airway 27 Pressure Peak Inspiratory Airway 27 Pressure Results - Laboratory Findings CBC and BMP: 11/08/17 03:00 11/08/17 03:00 ABG ABG pH 7.32 pH Units (7.32-7.45) 11/08/17 06:17 ABG pCO2 45 mmHg (35-45) 11/08/17 06:17 ABG pO2 74 mmHg (85-104) L 11/08/17 06:17 ABG O2 Saturation 94 % (95-98) L 11/08/17 06:17 PT/INR, D-dimer PT 11.6 Seconds (9.4-12.1) 11/07/17 13:45 Abnormal lab findings: Abnormal lab results WBC 13.8 K/mcL (4.3-11.1) H D 11/08/17 03:00 RBC 2.85 M/mcL (3.82-4.97) L 11/08/17 03:00 Hgb 9.7 g/dL (11.5-15.4) L 11/08/17 03:00 Hct 29.1 % (35.3-44.9) L 11/08/17 03:00 MCV 102.1 fL (83.0-100.0) H 11/08/17 03:00 MCH 34.0 pg (28.0-33.3) H 11/08/17 03:00 RDW 16.5 % (11.5-14.5) H 11/08/17 03:00 Band Neutrophils % 15.0 % (0-4) H 11/03/17 04:15 Metamyelocytes % 1.0 % (0) H 11/03/17 04:15 Neutrophils # 10.9 K/mcL (1.6-8.9) H 11/08/17 03:00 Monocytes # 1.6 K/mcL (0.0-1.3) H 11/08/17 03:00 Nucleated RBCs/100 WBC 0.2 /100 WBC (0) H 11/08/17 03:00 Reactive Lymphocytes Present (Not Present) A 11/04/17 03:50 Toxic Granulation Present (Not Present) A 11/04/17 03:50 Dohle Bodies Present (Not Present) A 11/04/17 03:50 ABG pO2 74 mmHg (85-104) L 11/08/17 06:17 ABG O2 Saturation 94 % (95-98) L 11/08/17 06:17 ABG Base Excess -3 mEq/L (-2 to 3) L 11/08/17 06:17 Chloride 115 mEq/L (98-107) H 11/08/17 03:00 Carbon Dioxide 22 mEq/L (23-29) L 11/08/17 03:00 BUN 121 mg/dL (8-23) H 11/08/17 03:00 Creatinine 2.92 mg/dL (0.60-1.20) H 11/08/17 03:00 Est GFR ( Amer) 19 (> 60) L 11/08/17 03:00 Est GFR (Non-Af Amer) 16 (> 60) L 11/08/17 03:00 BUN/Creatinine Ratio 41 (6-26) H 11/08/17 03:00 Glucose 123 mg/dL (70-105) H 11/08/17 03:00 POC Glucose 153 mg/dL (70-99) H 11/07/17 23:00 Hemoglobin A1c 5.8 % (-5.6) H 11/02/17 22:40 Calculated Osmolality 332 (280-300) H 11/08/17 03:00 Calcium 8.0 mg/dL (8.6-10.3) L 11/08/17 03:00 Total Bilirubin 1.2 mg/dL (0.3-1.0) H 11/02/17 18:42 Troponin I 0.05 ng/mL (< 0.04) H* 11/03/17 07:25 B-Natriuretic Peptide 112 pg/mL (Less than 100) H 11/02/17 18:42 Ur Specimen Adequacy See below A 11/02/17 20:24 Urine Clarity Turbid (Clear) A 11/02/17 20:24 Ur Specific [place] 1.030 (1.010-1.025) H 11/02/17 20:24 Urine Protein >=300 mg/dL (Neg-Trace) H 11/02/17 20:24 Urine Ketones Trace mg/dL (Negative) H 11/02/17 20:24 Urine Blood Large (Negative) H 11/02/17 20:24 Urine Bilirubin Small (Negative) H 11/02/17 20:24 Urine Microscopic WBC 5-15 per hpf (0-3) H 11/02/17 20:24 Ur Squamous Epith Cells Many per lpf (None-Few) H 11/02/17 20:24 Amorphous Sediment Many (Few) H 11/02/17 20:24 Granular Casts Few per lpf (None Seen) H 11/02/17 20:24 Influenza Type B (PCR) DETECTED (Not Detect) A 11/03/17 03:45 - Clinical Findings Intake & Output: Intake & Output 11/07/17 11/08/17 11/08/17 23:59 07:59 15:59 Intake Total 1561 / 1561 1855 / 1855 461 / 461 Output Total 500 / 500 600 / 600 Balance 1061 / 1061 1255 / 1255 461 / 461 Weight 86 kg - Attending Attestation I examined this patient and my medical decision-making was reviewed with the Resident Physician. I agree with the documented findings, disposition and treatment plan as described except to the extent set forth below. We independently had [id number] contact with the patient Patient seen and examined at bedside Labs, radiology, chart personally reviewed. Management was reviewed during multidisciplinary critical care rounds. 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 This is secondary to metabolic encephalopathy from kidney injury as well as critical illness and prolonged sedative infusion. Failed spontaneous awake trial again today we will continue daily sedation holiday however Pulm: Acute hypoxic hypercarbic respiratory failure secondary to pneumonia complicated in large part hydrostatic pulmonary edema and third spacing of fluid. Acceptable classics change today but still requiring increased minute ventilation to do this. Not a candidate for spontaneous breathing trial we will assess daily Cards: Blood pressure monitored and stable FEN-GI: Continue enteral nutrition per dietary recommendation continue GI prophylaxis Renal: AK I appears to be improving urine output is picking up a bit hesitant to start full diuresis today but would need to consider over the next 24-48 hours nightly respiratory status and go to the breakthrough event. Will stop continuous crystalloid infusion at this time however appreciate nephrology recommendations unfortunately her BUN/creatinine remains elevated which may be a rate limiting step from liberation from the bed with regards to encephalopathy were hoping that improvement over the next 24-48 hours will show a decrease in this as well ID: She has been treated for MSSA pneumonia after influenza B she has completed a course of Tamiflu for this Heme/Onc: DVT prophylaxis given Endo: Glucose Monitored Integ/MSK: Skin Care per routine ICU Nursing Protocol to prevent ulcers. Lines: All lines examined without evidence of infection : Dispo: Remain ICU for vent management CODE: DNAR. Grim prognosis.
[2017-11-08] MEDS: Pantoprazole 40 MG VIAL IVP SCH (07:48)
[2017-11-08] MEDS: Chlorhexidine Rinse 15 ML MOUTHWASH MM SCH ×2 (07:48→19:54)
[2017-11-08] MEDS: Insulin DETEMIR 100 UNIT/ML X5UNITS SQ SCH ×2 (08:21→19:55)
[2017-11-08] MEDS: FentaNYL (PF) 2,500 MCG in EMPTY BAG 50 EACH IVC SCH ×2 (08:44→17:05)
[2017-11-08] MEDS ORDERED: Sodium Bicarbonate 150 MEQ in D5% in Water 1,000 ML IVC SCH (09:30)
--- NOTE | 2017-11-08 09:33 | Nephrology Progress Note ---
Date of Encounter: 11/08/17 Time of Encounter: 09:31 - Assessment and Plan (1) RUSTY (acute kidney injury) Current Visit: Yes Status: Acute Patient with RUSTY that is improving. Continue gentle hydration, but will change to d5 with sodium bicarbonate for 1 liter secondary to metabolic acidosis. I anticipate continued improvement in renal function. No need for dialysis. Avoid nephrotoxins. (2) Acute respiratory failure Current Visit: Yes Status: Acute Patient intubated. Qualifiers: Respiratory failure complication: hypoxia Qualified Code(s): J96.01 - Acute respiratory failure with hypoxia (3) Community acquired pneumonia Current Visit: Yes Status: Acute Qualifiers: Laterality: right Lung location: upper lobe of lung Qualified Code(s): J18.1 - Lobar pneumonia, unspecified organism (4) Influenza B Current Visit: Yes Status: Acute Subjective Principal diagnosis: multifocal pneumonia and influneza B Interval history: Patient seen. She is intubated and sedated. ROS is unobtainable. Objective - Vital Signs Vital signs: Vital Signs Temp Pulse Resp BP Pulse Ox 11/08/17 09:00 105 27 107/79 97 11/08/17 08:03 28 101/51 98 11/08/17 08:00 105 28 101/51 97 11/08/17 07:58 98.4 F 11/08/17 07:30 116 11/08/17 07:00 118 28 114/54 97 11/08/17 06:00 99 F 115 28 112/53 94 11/08/17 05:00 99 F 114 28 106/46 94 11/08/17 04:25 99 F 11/08/17 04:00 118 28 102/48 94 11/08/17 03:13 28 129/58 94 11/08/17 03:00 114 27 129/58 94 11/08/17 02:00 106 26 102/50 100 11/08/17 01:33 26 109/51 100 11/08/17 01:00 108 28 108/52 100 11/08/17 00:00 109 27 109/76 98 11/07/17 23:51 98.6 F 11/07/17 23:15 29 105/53 100 11/07/17 23:00 100 27 105/53 98 11/07/17 22:00 100 27 99/51 98 11/07/17 21:00 105 28 103/64 99 04/07/18 20:33 98.9 F 11/07/17 20:24 28 97/58 99 11/07/17 20:00 100 26 97/58 98 11/07/17 19:00 102 28 104/50 99 11/07/17 18:33 28 99 11/07/17 18:00 104 28 105/51 99 11/07/17 17:00 105 26 107/49 99 11/07/17 16:00 100 26 112/57 99 11/07/17 15:51 27 118/59 99 11/07/17 15:30 98.5 F 11/07/17 15:00 102 27 115/58 98 11/07/17 14:00 104 27 117/55 98 11/07/17 13:21 27 98 11/07/17 13:00 105 26 118/61 96 11/07/17 12:13 30 113/58 101 11/07/17 12:00 102 30 113/58 100 11/07/17 11:54 98.5 F 11/07/17 11:00 103 28 107/57 98 11/07/17 10:00 103 28 127/67 98 11/07/17 09:49 32 96 Intake and Output 11/07/17 11/08/17 11/08/17 23:59 07:59 15:59 Intake Total 1561 / 1561 1845 / 1845 461 / 461 Output Total 500 / 500 600 / 600 Balance 1061 / 1061 1245 / 1245 461 / 461 Intake: IV Fluids 1225 / 1225 977 / 977 150 / 150 PRECEDEX Premix 400 mcg In 100 100 / 100 100 / 100 100 / 100 ml @ 0.2 MCG/KG/HR 3.915 mls/hr IVC .Q24H [facility] Rx#:[id number] FentaNYL (PF) 2,500 MCG In 25 / 25 50 / 50 Empty Bag 50 Each @ 50 MCG/HR 1 mls/hr IVC CONT [facility] Rx#: [id number] Diprivan 1,000 mg In 100 ml @ 100 / 100 100 / 100 10 MCG/KG/MIN 4.74 mls/hr IVC . Q21H6M [facility] Rx#:[id number] Lactated Ringers 1,000 ML @ 75 1000 / 1000 777 / 777 mls/hr IVC .[id number] [facility] Rx#: [id number] Tube Feeding 336 / 336 268 / 268 161 / 161 Free Water 300 / 300 150 / 150 Free Water Intake Amount 300 / 300 Output: Rectal Tube 100 / 100 100 / 100 Catheter 400 / 400 500 / 500 Other: Weight 86 kg Blood Glucose* 153 139 - General Appearance General appearance: Present: well-developed, well-nourished, sedated on ventilator, intubated EENT: Present: ATNC Respiratory: Present: course breath sounds, rhonchi Cardiology: Present: edema (trace edema) Additional Comments: tachycardic Integumentary: Present: warm and dry Musculoskeletal: Present: no cyanosis - Lab 11/08/17 03:00 11/08/17 03:00 Most recent lab results ABG pH 7.32 pH Units (7.32-7.45) 11/08/17 06:17 ABG pCO2 45 mmHg (35-45) 11/08/17 06:17 ABG pO2 74 mmHg (85-104) L 11/08/17 06:17 ABG HCO3 23 mEq/L (21-27) 11/08/17 06:17 ABG O2 Saturation 94 % (95-98) L 11/08/17 06:17 Calcium 8.0 mg/dL (8.6-10.3) L 11/08/17 03:00 Phosphorus 3.5 mg/dL (2.7-4.5) 11/08/17 03:00 Magnesium 2.6 mg/dL (1.6-2.6) 11/08/17 03:00 Urine Creatinine < 1 mg/dL 11/04/17 09:10 Urine Sodium 73.5 mEq/L 11/07/17 04:25 Consult Discharge Plan - Plan Referrals: Chato Guardado, AIDA [Primary Care Provider] -
[2017-11-08] MEDS: Ringers Solution, Lactated 1,000 ML IVC SCH (09:34)
[2017-11-09] MEDS: Dexmedetomidine HCl 400 MCG/100 ML MLS IVC SCH (02:45)
[2017-11-09] MEDS: Ipratropium/Albuterol Neb 3 ML IH SCH ×5 (03:23→19:38)
[2017-11-09] MEDS: Lacri-Lube 3.5 GM TUBE BOTH EYES SCH ×2 (04:00→08:01)
[2017-11-09] MEDS: Insulin LISPRO 300 UNITS/3 ML VIAL SQ SCH ×5 (04:33→21:15)
[2017-11-09 04:39] LABS: Basophils % 0.1 %; Hematocrit 27.9 % (35.3-44.9); Hemoglobin 9.2 g/dL (11.5-15.4); Immature Granulocytes % 3.1 % (0-4); Lymphocytes % 7.1 %; Mean Corpuscular Hemoglobin 33.7 pg (28.0-33.3); Mean Corpuscular Volume 102.2 fL (83.0-100.0); Mean Platelet Volume 11.8 fL (9.4-12.4); Monocytes # 1.1 K/mcL (0.0-1.3); Neutrophils # 11.2 K/mcL (1.6-8.9); Nucleated Red Blood Cells 0.1 /100 WBC (0); Platelet Count 156 K/mcL (140-400); Red Blood Count 2.73 M/mcL (3.82-4.97); Red Cell Distribution Width 16.2 % (11.5-14.5); Segmented Neutrophils % 81.7 %
[2017-11-09 04:42] LABS: ABG Base Excess 0 mEq/L (-2 to 3); ABG HCO3 26 mEq/L (21-27); ABG Oxygen Saturation 97 % (95-98); ABG PCO2 49 mmHg (35-45); ABG PH 7.33 pH Units (7.32-7.45); ABG PO2 95 mmHg (85-104); ABG TCO2 28 mEq/L (20-26); Blood Gas Modality PRVC; Blood Gas PEEP 5 cm H2O; Blood Gas Respiration Rate 26; Blood Gas VT 420 cc
[2017-11-09 04:46] LABS: Calcium 7.7 mg/dL (8.6-10.3); Magnesium 2.7 mg/dL (1.6-2.6); Phosphorous 5.3 mg/dL (2.7-4.5); Potassium 5.5 mEq/L (3.5-5.1)
[2017-11-09 05:54] LABS: Platelet Estimate Normal (Normal)
[2017-11-09] MEDS: *HR* Heparin 5,000 UNIT/ML VIAL SQ SCH ×3 (06:19→21:14)
[2017-11-09] MEDS: FentaNYL (PF) 2,500 MCG in EMPTY BAG 50 EACH IVC SCH (06:50)
[2017-11-09] MEDS ORDERED: Furosemide 20 MG/2 ML VIAL IVP ONE (07:34)
[2017-11-09] MEDS: Pantoprazole 40 MG VIAL IVP SCH (08:01)
[2017-11-09] MEDS: Chlorhexidine Rinse 15 ML MOUTHWASH MM SCH (08:01)
--- NOTE | 2017-11-09 08:02 | Pulmonology Progress Note ---
<Albert Jones - Last Filed: 11/09/17 12:00> Date of Encounter: 11/09/17 Time of Encounter: 09:09 Assessment and Plan (1) Acute respiratory failure Current Visit: Yes Status: Acute Secondary to multifocal pneumonia and influenza B. Sputum positive for S. aureus. Concern for volume overload with 3L positive fluid balance. Have been gently diuresing due to RUSTY alternating with gentle hydration for renal function. Still vent-dependent. Improving ABGs. Tachycardic/tachypneic. BP stable. Plan Continue CPAP trials as tolerated Sedation vacation as tolerated Cefazolin Day 12/10 Repeat CXR this morning Qualifiers: Respiratory failure complication: hypoxia Qualified Code(s): J96.01 - Acute respiratory failure with hypoxia (2) Multifocal pneumonia Current Visit: Yes Status: Acute Patient has S. aureus positive sputum, MSSA Cefazolin Day 12/10 Appears to be improving on labs and exam Repeat CXR today (3) Sepsis Current Visit: Yes Status: Resolved Sepsis, improved Patient remains tachycardic and tachypneic Remains Afebrile, WBC is approaching normal We will continue antibiotic and monitor Qualifiers: Sepsis type: sepsis due to unspecified organism Qualified Code(s): A41.9 - Sepsis, unspecified organism (4) RUSTY (acute kidney injury) Current Visit: Yes Status: Acute Acute kidney injury, improving Serum Cr 2.68, eGFR 17 (up from 16) Serum K+ 5.5, phosphorus 5.3 Fluid balance cumulative 06[id number], B [id number] We will continue gentle diuresis with 20mg IV Lasix this morning, possibly repeat later Nephrology is following, appreciate recommendations (5) Influenza B Current Visit: Yes Status: Acute Patient has finished Tamiflu regimen (6) Hyperkalemia Current Visit: Yes Status: Acute Hyperkalemia, likely secondary to poor renal excretion Serum K+ 5.5, no obvious EKG changes Appreciate nephrology recommendations (7) Diabetes mellitus Current Visit: Yes Status: Acute DM2 with hyperglycemia Continue q4h accuchecks Continue basal insulin and High dose sliding scale Qualifiers: Diabetes mellitus type: type 2 Diabetes mellitus residential insulin use: unspecified director instrumentation insulin use status Diabetes mellitus complication status : with unspecified complications Qualified Code(s): E11.8 - Type 2 diabetes mellitus with unspecified complications (8) Ovarian cancer Current Visit: Yes Status: Chronic Qualifiers: Laterality: unspecified laterality Qualified Code(s): C56.9 - Malignant neoplasm of unspecified ovary (9) DVT prophylaxis Current Visit: Yes Status: Acute sq heparin Subjective Principal diagnosis: multifocal pneumonia and influneza B Interval history: The patient remains intubated at this time. She is mildly responsive to verbal stimuli, opening her eyes and closing them again. Objective PUL Vital signs: Last Vital Signs Temp 98.5 F 11/09/17 03:00 Pulse 106 11/09/17 06:00 Resp 17 11/09/17 06:12 BP 100/56 11/09/17 06:12 Pulse Ox 98 11/09/17 06:12 General appearance: no acute distress, asleep, comatose (Sedated with vent) Eyes: nonicteric ENT: oropharynx moist Neck: supple, no lymphadenopathy, no JVD Effort: normal Auscultation: bilateral: clear Percussion: bilateral: not dull Tactile fremitus: bilateral: normal Cardiovascular: regular rate and rhythm Gastrointestinal: normoactive bowel sounds, soft, non-tender, non-distended Integumentary: normal Extremities: no cyanosis, no clubbing, edema (Some edema is noted in BLEs) Musculoskeletal: no deformities non-focal exam, unable to assess due to mental status Ventilator Settings Ventilator Settings: Ventilator Settings, Last 8 Hours Ventilator Mode CPAP Ventilator Mode VC+ Ventilator Mode VC+ Ventilator Mode VC+ Ventilator Mode VC+ Ventilator Mode VC+ Ventilator Mode VC+ Ventilator Mode VC+ Ventilator Mode VC+ Ventilator Mode VC+ Ventilator Tidal Volume 420 Setting Ventilator Tidal Volume 420 Setting Ventilator Tidal Volume 420 Setting Ventilator Tidal Volume 420 Setting Ventilator Tidal Volume 420 Setting Ventilator Tidal Volume 420 Setting Ventilator Tidal Volume 420 Setting Ventilator Tidal Volume 420 Setting Ventilator Tidal Volume 420 Setting Ventilator Respiratory Rate 26 Setting Ventilator Respiratory Rate 26 Setting Ventilator Respiratory Rate 26 Setting Ventilator Respiratory Rate 26 Setting Ventilator Respiratory Rate 26 Setting Ventilator Respiratory Rate 26 Setting Ventilator Respiratory Rate 26 Setting Ventilator Respiratory Rate 26 Setting Ventilator Respiratory Rate 26 Setting Actual Respiratory Rate 17 Actual Respiratory Rate 26 Actual Respiratory Rate 26 Actual Respiratory Rate 26 Actual Respiratory Rate 26 Actual Respiratory Rate 26 Actual Respiratory Rate 26 Positive End Expiratory 5 Pressure Positive End Expiratory 5 Pressure Positive End Expiratory 5 Pressure Positive End Expiratory 5 Pressure Positive End Expiratory 5 Pressure Positive End Expiratory 5 Pressure Positive End Expiratory 5 Pressure Positive End Expiratory 5 Pressure Positive End Expiratory 5 Pressure Positive End Expiratory 5 Pressure Peak Inspiratory Airway 16 Pressure Peak Inspiratory Airway 40 Pressure Peak Inspiratory Airway 29 Pressure Peak Inspiratory Airway 29 Pressure Peak Inspiratory Airway 29 Pressure Peak Inspiratory Airway 25 Pressure Peak Inspiratory Airway 29 Pressure Results - Laboratory Findings CBC and BMP: 11/09/17 02:45 11/09/17 02:45 ABG ABG pH 7.33 pH Units (7.32-7.45) 11/09/17 04:39 ABG pCO2 49 mmHg (35-45) H 11/09/17 04:39 ABG pO2 95 mmHg (85-104) 11/09/17 04:39 ABG O2 Saturation 97 % (95-98) 11/09/17 04:39 PT/INR, D-dimer PT 11.6 Seconds (9.4-12.1) 11/07/17 13:45 Abnormal lab findings: Abnormal lab results WBC 13.7 K/mcL (4.3-11.1) H 11/09/17 02:45 RBC 2.73 M/mcL (3.82-4.97) L 11/09/17 02:45 Hgb 9.2 g/dL (11.5-15.4) L 11/09/17 02:45 Hct 27.9 % (35.3-44.9) L 11/09/17 02:45 MCV 102.2 fL (83.0-100.0) H 11/09/17 02:45 MCH 33.7 pg (28.0-33.3) H 11/09/17 02:45 RDW 16.2 % (11.5-14.5) H 11/09/17 02:45 Band Neutrophils % 15.0 % (0-4) H 11/03/17 04:15 Metamyelocytes % 1.0 % (0) H 11/03/17 04:15 Neutrophils # 11.2 K/mcL (1.6-8.9) H 11/09/17 02:45 Nucleated RBCs/100 WBC 0.1 /100 WBC (0) H 11/09/17 02:45 Reactive Lymphocytes Present (Not Present) A 11/04/17 03:50 Toxic Granulation Present (Not Present) A 11/04/17 03:50 Dohle Bodies Present (Not Present) A 11/04/17 03:50 ABG pCO2 49 mmHg (35-45) H 11/09/17 04:39 ABG Total CO2 28 mEq/L (20-26) H 11/09/17 04:39 Potassium 5.5 mEq/L (3.5-5.1) H 11/09/17 02:45 Chloride 110 mEq/L (98-107) H 11/09/17 02:45 BUN 124 mg/dL (8-23) H 11/09/17 02:45 Creatinine 2.68 mg/dL (0.60-1.20) H 11/09/17 02:45 Est GFR ( Amer) 21 (> 60) L 11/09/17 02:45 Est GFR (Non-Af Amer) 17 (> 60) L 11/09/17 02:45 BUN/Creatinine Ratio 46 (6-26) H 11/09/17 02:45 Glucose 140 mg/dL (70-105) H 11/09/17 02:45 POC Glucose 168 mg/dL (70-99) H 11/08/17 23:37 Hemoglobin A1c 5.8 % (-5.6) H 11/02/17 22:40 Calculated Osmolality 338 (280-300) H 11/09/17 02:45 Calcium 7.7 mg/dL (8.6-10.3) L 11/09/17 02:45 Phosphorus 5.3 mg/dL (2.7-4.5) H 11/09/17 02:45 Magnesium 2.7 mg/dL (1.6-2.6) H 11/09/17 02:45 Total Bilirubin 1.2 mg/dL (0.3-1.0) H 11/02/17 18:42 Troponin I 0.05 ng/mL (< 0.04) H* 11/03/17 07:25 B-Natriuretic Peptide 112 pg/mL (Less than 100) H 11/02/17 18:42 Ur Specimen Adequacy See below A 11/02/17 20:24 Urine Clarity Turbid (Clear) A 11/02/17 20:24 Ur Specific Howard 1.030 (1.010-1.025) H 11/02/17 20:24 Urine Protein >=300 mg/dL (Neg-Trace) H 11/02/17 20:24 Urine Ketones Trace mg/dL (Negative) H 11/02/17 20:24 Urine Blood Large (Negative) H 11/02/17 20:24 Urine Bilirubin Small (Negative) H 11/02/17 20:24 Urine Microscopic WBC 5-15 per hpf (0-3) H 11/02/17 20:24 Ur Squamous Epith Cells Many per lpf (None-Few) H 11/02/17 20:24 Amorphous Sediment Many (Few) H 11/02/17 20:24 Granular Casts Few per lpf (None Seen) H 11/02/17 20:24 Influenza Type B (PCR) DETECTED (Not Detect) A 11/03/17 03:45 - Diagnostic Findings Chest x-ray: report reviewed, image reviewed - Clinical Findings Intake & Output: Intake & Output 11/08/17 11/09/17 11/09/17 23:59 07:59 15:59 Intake Total 1006 / 1006 927 / 927 Output Total 300 / 300 700 / 700 Balance 706 / 706 227 / 227 Weight 88.4 kg Consult Discharge Plan - Plan Referrals: Chato Guardado CNP [Primary Care Provider] - <Steph Rivas - Last Filed: 11/09/17 13:12> Date of Encounter: 11/09/17 Objective PUL Vital signs: Last Vital Signs Temp 98.7 F 11/09/17 08:00 Pulse 112 11/09/17 09:30 Resp 26 11/09/17 09:57 BP 119/55 11/09/17 09:57 Pulse Ox 94 11/09/17 09:57 Ventilator Settings Ventilator Settings: Ventilator Settings, Last 8 Hours Ventilator Mode CPAP Ventilator Mode A/C Ventilator Mode CPAP Ventilator Mode CPAP Ventilator Mode CPAP Ventilator Mode CPAP Ventilator Mode VC+ Ventilator Mode VC+ Ventilator Mode VC+ Ventilator Mode VC+ Ventilator Mode VC+ Ventilator Mode VC+ Ventilator Tidal Volume 420 Setting Ventilator Tidal Volume 420 Setting Ventilator Tidal Volume 420 Setting Ventilator Tidal Volume 420 Setting Ventilator Tidal Volume 420 Setting Ventilator Tidal Volume 420 Setting Ventilator Tidal Volume 420 Setting Ventilator Tidal Volume 420 Setting Ventilator Respiratory Rate 26 Setting Ventilator Respiratory Rate 26 Setting Ventilator Respiratory Rate 26 Setting Ventilator Respiratory Rate 26 Setting Ventilator Respiratory Rate 26 Setting Ventilator Respiratory Rate 26 Setting Ventilator Respiratory Rate 26 Setting Actual Respiratory Rate 26 Actual Respiratory Rate 26 Actual Respiratory Rate 31 Actual Respiratory Rate 37 Actual Respiratory Rate 25 Actual Respiratory Rate 17 Actual Respiratory Rate 26 Actual Respiratory Rate 26 Actual Respiratory Rate 26 Positive End Expiratory 5 Pressure Positive End Expiratory 26 Pressure Positive End Expiratory 5 Pressure Positive End Expiratory 5 Pressure Positive End Expiratory 5 Pressure Positive End Expiratory 5 Pressure Positive End Expiratory 5 Pressure Positive End Expiratory 5 Pressure Positive End Expiratory 5 Pressure Positive End Expiratory 5 Pressure Positive End Expiratory 5 Pressure Positive End Expiratory 5 Pressure Peak Inspiratory Airway 22 Pressure Peak Inspiratory Airway 24 Pressure Peak Inspiratory Airway 18 Pressure Peak Inspiratory Airway 14 Pressure Peak Inspiratory Airway 15 Pressure Peak Inspiratory Airway 16 Pressure Peak Inspiratory Airway 40 Pressure Peak Inspiratory Airway 29 Pressure Peak Inspiratory Airway 29 Pressure Results - Laboratory Findings CBC and BMP: 11/09/17 02:45 11/09/17 02:45 ABG ABG pH 7.33 pH Units (7.32-7.45) 11/09/17 04:39 ABG pCO2 49 mmHg (35-45) H 11/09/17 04:39 ABG pO2 95 mmHg (85-104) 11/09/17 04:39 ABG O2 Saturation 97 % (95-98) 11/09/17 04:39 PT/INR, D-dimer PT 11.6 Seconds (9.4-12.1) 11/07/17 13:45 Abnormal lab findings: Abnormal lab results WBC 13.7 K/mcL (4.3-11.1) H 11/09/17 02:45 RBC 2.73 M/mcL (3.82-4.97) L 11/09/17 02:45 Hgb 9.2 g/dL (11.5-15.4) L 11/09/17 02:45 Hct 27.9 % (35.3-44.9) L 11/09/17 02:45 MCV 102.2 fL (83.0-100.0) H 11/09/17 02:45 MCH 33.7 pg (28.0-33.3) H 11/09/17 02:45 RDW 16.2 % (11.5-14.5) H 11/09/17 02:45 Band Neutrophils % 15.0 % (0-4) H 11/03/17 04:15 Metamyelocytes % 1.0 % (0) H 11/03/17 04:15 Neutrophils # 11.2 K/mcL (1.6-8.9) H 11/09/17 02:45 Nucleated RBCs/100 WBC 0.1 /100 WBC (0) H 11/09/17 02:45 Reactive Lymphocytes Present (Not Present) A 11/04/17 03:50 Toxic Granulation Present (Not Present) A 11/04/17 03:50 Dohle Bodies Present (Not Present) A 11/04/17 03:50 ABG pCO2 49 mmHg (35-45) H 11/09/17 04:39 ABG Total CO2 28 mEq/L (20-26) H 11/09/17 04:39 Potassium 5.5 mEq/L (3.5-5.1) H 11/09/17 02:45 Chloride 110 mEq/L (98-107) H 11/09/17 02:45 BUN 124 mg/dL (8-23) H 11/09/17 02:45 Creatinine 2.68 mg/dL (0.60-1.20) H 11/09/17 02:45 Est GFR ( Amer) 21 (> 60) L 11/09/17 02:45 Est GFR (Non-Af Amer) 17 (> 60) L 11/09/17 02:45 BUN/Creatinine Ratio 46 (6-26) H 11/09/17 02:45 Glucose 140 mg/dL (70-105) H 11/09/17 02:45 POC Glucose 168 mg/dL (70-99) H 11/08/17 23:37 Hemoglobin A1c 5.8 % (-5.6) H 11/02/17 22:40 Calculated Osmolality 338 (280-300) H 11/09/17 02:45 Calcium 7.7 mg/dL (8.6-10.3) L 11/09/17 02:45 Phosphorus 5.3 mg/dL (2.7-4.5) H 11/09/17 02:45 Magnesium 2.7 mg/dL (1.6-2.6) H 11/09/17 02:45 Total Bilirubin 1.2 mg/dL (0.3-1.0) H 11/02/17 18:42 Troponin I 0.05 ng/mL (< 0.04) H* 11/03/17 07:25 B-Natriuretic Peptide 112 pg/mL (Less than 100) H 11/02/17 18:42 Ur Specimen Adequacy See below A 11/02/17 20:24 Urine Clarity Turbid (Clear) A 11/02/17 20:24 Ur Specific Howard 1.030 (1.010-1.025) H 11/02/17 20:24 Urine Protein >=300 mg/dL (Neg-Trace) H 11/02/17 20:24 Urine Ketones Trace mg/dL (Negative) H 11/02/17 20:24 Urine Blood Large (Negative) H 11/02/17 20:24 Urine Bilirubin Small (Negative) H 11/02/17 20:24 Urine Microscopic WBC 5-15 per hpf (0-3) H 11/02/17 20:24 Ur Squamous Epith Cells Many per lpf (None-Few) H 11/02/17 20:24 Amorphous Sediment Many (Few) H 11/02/17 20:24 Granular Casts Few per lpf (None Seen) H 11/02/17 20:24 Influenza Type B (PCR) DETECTED (Not Detect) A 11/03/17 03:45 - Clinical Findings Intake & Output: Intake & Output 11/08/17 11/09/17 11/09/17 23:59 07:59 15:59 Intake Total 1006 / 1006 977 / 977 Output Total 300 / 300 700 / 700 175 / 175 Balance 706 / 706 277 / 277 -175 / -175 Weight 88.4 kg - Attending Attestation I examined this patient and my medical decision-making was reviewed with the Resident Physician. I agree with the documented findings, disposition and treatment plan as described except to the extent set forth below. Patient seen and examined. Labs, radiology, chart personally reviewed. 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, Pulmonary: Acceptable oxygenation and ventilation and reasonable breaking spontaneous breathing trial, however she still higher risk for reintubation and for that reason palliative care has been consulted Cardiovascular: stable GI: Nutrition per dietary and GI prophylaxis per routine Heme: DVT prophylaxis per routine ID: Continue antibiotics and plan to de-escalation Renal; urine out put and renal funtion reviewed Endorcine: blood glucose is monitored Lines: all lines checked and no evidence of infections Skin: skin care to prevent pressure ulcers per nursing routine care Overall prognosis is poor
[2017-11-09] MEDS: Insulin DETEMIR 100 UNIT/ML X5UNITS SQ SCH ×2 (08:03→21:14)
--- NOTE | 2017-11-09 09:21 | Nephrology Progress Note ---
Date of Encounter: 11/09/17 Time of Encounter: 09:21 - Assessment and Plan (1) RUSTY (acute kidney injury) Current Visit: Yes Status: Acute Patient with RUSTY that is improving. Acidosis resolved with supplemental bicarbonate. Her potassium was elevated. Will manage medically. I anticipate continued improvement in renal function. No need for dialysis. Avoid nephrotoxins. Patient transitioning to comfort care per palliative note. (2) Acute respiratory failure Current Visit: Yes Status: Acute Patient intubated. Plan for extubation Thursday. Qualifiers: Respiratory failure complication: hypoxia Qualified Code(s): J96.01 - Acute respiratory failure with hypoxia (3) Community acquired pneumonia Current Visit: Yes Status: Acute Qualifiers: Laterality: right Lung location: upper lobe of lung Qualified Code(s): J18.1 - Lobar pneumonia, unspecified organism (4) Influenza B Current Visit: Yes Status: Acute Subjective Principal diagnosis: multifocal pneumonia and influneza B Interval history: Patient seen. She is intubated and sedated. ROS is unobtainable. Objective - Vital Signs Vital signs: Vital Signs Temp Pulse Resp BP Pulse Ox 11/09/17 08:38 33 171/82 96 11/09/17 08:00 98.7 F 11/09/17 07:30 108 26 128/91 96 11/09/17 06:12 17 100/56 98 11/09/17 06:00 106 21 100/56 96 11/09/17 05:00 93 26 97/56 98 11/09/17 04:00 92 26 97/54 98 11/09/17 03:23 26 113/61 98 11/09/17 03:00 98.5 F 92 26 97/54 98 11/09/17 02:00 105 26 105/57 98 11/09/17 01:15 26 97/50 99 11/09/17 01:00 98 26 97/50 98 11/09/17 00:00 99.0 F 101 26 107/53 98 11/08/17 23:22 26 106/48 96 11/08/17 23:00 103 26 106/48 98 11/08/17 22:00 101 26 107/44 96 11/08/17 21:20 26 95/52 96 11/08/17 21:00 100 26 95/52 96 11/08/17 20:11 100.8 F H 11/08/17 20:00 110 26 116/51 96 11/08/17 19:39 27 109/46 97 11/08/17 19:00 106 26 102/43 96 11/08/17 18:00 112 27 107/48 97 11/08/17 17:14 26 97 11/08/17 17:00 117 26 109/57 97 11/08/17 16:00 107 26 98/43 98 11/08/17 15:42 27 98/43 99 11/08/17 15:00 98.9 F 110 27 96/60 99 11/08/17 14:00 109 28 106/47 96 11/08/17 13:02 99 11/08/17 13:00 110 26 102/50 98 11/08/17 12:00 111 26 102/50 97 11/08/17 11:23 26 101/49 97 11/08/17 11:00 103 26 101/49 98 11/08/17 10:00 105 26 97/48 97 11/08/17 09:44 26 97 Intake and Output 11/08/17 11/09/17 11/09/17 23:59 07:59 15:59 Intake Total 1006 / 1006 977 / 977 Output Total 300 / 300 700 / 700 175 / 175 Balance 706 / 706 277 / 277 -175 / -175 Intake: IV Fluids 238 / 238 250 / 250 PRECEDEX Premix 400 mcg In 100 100 / 100 100 / 100 ml @ 0.2 MCG/KG/HR 3.915 mls/hr IVC .Q24H [facility] Rx#:[id number] FentaNYL (PF) 2,500 MCG In 50 / 50 Empty Bag 50 Each @ 50 MCG/HR 1 mls/hr IVC CONT [facility] Rx#: [id number] Diprivan 1,000 mg In 100 ml @ 100 / 100 100 / 100 10 MCG/KG/MIN 4.74 mls/hr IVC . Q21H6M [facility] Rx#:[id number] Ancef 1,000 MG In Water for inj . (sterile) 10 ML @ 200 mls/hr IVPB Q12H [facility] Rx#:[id number] Tube Feeding 318 / 318 427 / 427 Free Water 300 / 300 150 / 150 Free Water Intake Amount 150 / 150 150 / 150 Output: Rectal Tube 0 / 0 100 / 100 0 / 0 Catheter 300 / 300 600 / 600 175 / 175 Other: Weight 88.4 kg Blood Glucose* 136 172 Patient Weight 11/09/17 23:59 Weight 88.4 kg - General Appearance General appearance: Present: well-developed, well-nourished, sedated on ventilator, intubated EENT: Present: ATNC Neck: Present: supple Respiratory: Present: course breath sounds, rhonchi Cardiology: Present: edema, regular rate Integumentary: Present: warm and dry - Lab 11/09/17 02:45 11/09/17 17:33 Most recent lab results ABG pH 7.33 pH Units (7.32-7.45) 11/09/17 04:39 ABG pCO2 49 mmHg (35-45) H 11/09/17 04:39 ABG pO2 95 mmHg (85-104) 11/09/17 04:39 ABG HCO3 26 mEq/L (21-27) 11/09/17 04:39 ABG O2 Saturation 97 % (95-98) 11/09/17 04:39 Calcium 7.7 mg/dL (8.6-10.3) L 11/09/17 02:45 Phosphorus 5.3 mg/dL (2.7-4.5) H 11/09/17 02:45 Magnesium 2.7 mg/dL (1.6-2.6) H 11/09/17 02:45 Urine Creatinine < 1 mg/dL 11/04/17 09:10 Urine Sodium 73.5 mEq/L 11/07/17 04:25 Consult Discharge Plan - Plan Referrals: Chato Guardado CNP [Primary Care Provider] -
--- NOTE | 2017-11-09 11:24 | Palliative - Consult Note ---
Date of Encounter: 11/09/17 Time of Encounter: 10:45 - Assessment and Plan (1) Respiratory distress Current Visit: Yes Status: Acute Assessment and plan: Patient currently ventilator dependent. Continue following Pulmonary Team recommendation for ventilator management with daily weaning trials. (2) Severe sepsis Current Visit: Yes Status: Acute Assessment and plan: Vital signs stable. WBC decreased 13.7, Neutrophils increased to 11.2. Continue IV Cefazolin. (3) Ovarian cancer Current Visit: Yes Status: Chronic Qualifiers: Laterality: unspecified laterality Qualified Code(s): C56.9 - Malignant neoplasm of unspecified ovary (4) Acute respiratory failure Current Visit: Yes Status: Acute Assessment and plan: Patient being managed for ARF with ventilation support. Continue duonebs. Qualifiers: Respiratory failure complication: hypoxia Qualified Code(s): J96.01 - Acute respiratory failure with hypoxia (5) Acute kidney injury Current Visit: Yes Status: Acute Assessment and plan: Nephrology following patient. BUN increased to 124 and Creatinine decreased to 2.68. Continue to avoid nephrotoxins. (6) Goals of care, counseling/discussion Current Visit: Yes Status: Acute Assessment and plan: Spoke with Nurse Leydi whom has not seen or heard from Patient's daughter today. Leydi spoke with other family members who had visited that informed her that they were trying to get ahold of patient's daughter. Have called daughter' s phone to attempt to arrange meeting to discuss patient's status with daughter. Patient's daughter does not have a voicemail set up. Phoned at 12:20pm, 12:53pm, and 1:48pm. Will continue to attempt to reach daughter. Also requested primary nurse to notify Palliative care if any family members visit or call. Palliative-CN HPI - Data of Consult Patient: new to practice Consult date: 11/09/17 Requesting Physician: Frank Franks Primary Care Provider: Chato Guardado CNP - Consult Narrative Palliative Care/Comfort Measures: Palliative care Reason for consult: extended intubation History of present illness: Ms. Hooper is a 77 year old female arriving to [place] ER on 11/02/17 for shortness of breath. Patient arrived to ER with DNR CCA/DNI original intent, but due to progressive shortness of breath, tachypnea, and tachycardia patient opted to be intubated and remain a "no code" per documentation. Family at bedside also agreed to intubation as patient was AOX3. ABG showing respiratory alkalosis likely secondary to tachypnea. Patient was intubated and has continued to fail weaning trials for the last 7 days. Patient started on IV antibiotics after CT scan showed multifocal pneumonia. Patient was diagnosed with S. Aureus PNA and positive for Flu B found to be in Severe Sepsis. Since ICU stay, Nephrology was consulted to assist with IV hydration while managing kidney function. On 11/05/17 patient had continued to not arouse post stopping sedation, head CT performed showing No acute intracranial abnormality. Aggressive treatment measured continued. 11/09/17-Palliative care consulted to discuss goals of care with family as patient has been intubated for an extended period of time. PMH: CAD, Ovarian Cancer, DM, HTN. Upon entering the room for assessment, patient did not respond to verbal or tactile stimulation. No family present at bedside. Completed thorough chart review for HPI. Patient resting quietly with eyes closed, non-responsive. Good urine output noted within catheter and stool noted to FMS bag. Spoke with Nurse Leydi who reported daughter had not been in yet and that patient's other family was trying to get in contact with her. Requested Leydi to notify Palliative Care if family would arrive to discuss patient's current health status. CC: Frank Franks Past Med Surg Social Fam HX - Past Medical History Medical history: cancer (ovarian cancer with mets ), COPD, hyperlipidemia, hypertension Psychiatric history: no psych history - Social History Smoking Status: Former smoker Smokeless Tobacco Status: No Alcohol use: none Drug use: none Medications and Allergies Albuterol Sulfate [Ventolin Hfa] 1 puff IH DAILY PRN 11/02/17 [History] Citalopram Hydrobromide [Citalopram HBr] 40 mg PO DAILY 11/02/17 [History] Lisinopril [Zestril] 40 mg PO DAILY 11/02/17 [History] Rucaparib Camsylate [Rubraca] 300 mg PO BID 11/02/17 [History] 3 Allergy/AdvReac Type Severity Reaction Status Date / Time No Known Allergies Allergy Verified 11/02/17 18:12 ROS unobtainable: due to endotracheal tube Palliative Care-Exam - Constitutional Vitals: Temp Pulse Resp BP Pulse Ox 98.7 F 98 26 100/50 95 11/09/17 08:00 11/09/17 10:21 11/09/17 10:21 11/09/17 10:21 11/09/17 10:21 General appearance: Present: cooperative, no acute distress - Head Head Exam: Present: atraumatic, normal inspection - Eye Eye exam: Present: normal appearance, PERRL, conjuntiva pink. Absent: nystagmus Pupils: Present: normal accommodation, PERRL - ENT ENT exam: Present: mucous membranes moist, normal external ear exam - Neck Neck exam: Present: normal inspection. Absent: thyromegaly - Respiratory Respiratory exam: Present: wheezes. Absent: accessory muscle use, respiratory distress - Cardiovascular Cardiovascular exam: Present: +S1, +S2. Absent: irregular rhythm - Expanded Cardiovascular Exam Peripheral pulses: 2+: Carotid (L) PM, Carotid (R) PM, Dorsalis Pedis (L) PM, Dorsalis Pedis (R) PM - GI/Abdominal Exam GI/Abdominal exam: Present: normal bowel sounds, soft. Absent: firm, tenderness - Rectal Rectal exam: Present: deferred - Extremities Exam Extremities exam: Present: normal inspection. Absent: calf tenderness, pedal edema, tenderness - Neurological Exam Neurological exam: Present: altered - Expanded Neurological Exam Coma Scale Eye Opening: None Coma Scale Motor Response: None Coma Scale Verbal Response: None Coma Scale Total: 3 - Psychiatric Psychiatric exam: Present: flat affect - Skin Skin exam: Present: dry, intact. Absent: cyanosis Internal Medicine - CN: Reslt - Labs CBC & Chem 7: 11/09/17 02:45 11/09/17 02:45 Labs: Short CBC 11/09/17 Range/Units 02:45 WBC 13.7 H (4.3-11.1) K/mcL Hgb 9.2 L (11.5-15.4) g/dL Hct 27.9 L (35.3-44.9) % Plt Count 156 (140-400) K/mcL Neutrophils # 11.2 H (1.6-8.9) K/mcL BMP 11/09/17 02:45 Sodium 143 Potassium 5.5 H Chloride 110 H Carbon Dioxide 24 BUN 124 H Creatinine 2.68 H Glucose 140 H Calcium 7.7 L - ABG Interpretation ABG results: ABG ABG pH 7.33 pH Units (7.32-7.45) 11/09/17 04:39 ABG pCO2 49 mmHg (35-45) H 11/09/17 04:39 ABG pO2 95 mmHg (85-104) 11/09/17 04:39 ABG O2 Saturation 97 % (95-98) 11/09/17 04:39 PT/INR, D-dimer PT 11.6 Seconds (9.4-12.1) 11/07/17 13:45 - Impressions Impressions Chest X-Ray 11/09/17 08:38 IMPRESSION: 1. Patchy bilateral lung opacities, worse in the right upper lobe most suspicious for multifocal pneumonia. 2. Small bilateral pleural effusions. D/ / Glendy Acevedo MD / Glendy Acevedo MD Interpreting Provider: Glendy Acevedo MD Consult Discharge Plan - Plan Referrals: Chato Guardado CNP [Primary Care Provider] - Palliative Quality Palliative Quality: Screen for Code Status: Yes, Screen for Goals of Care: Yes, Screen for Pain: Yes, If Pain Regimen Started, Initiate Bowel Regimen: NA, Screen for Nausea/Vomitting: No (non-responsive.) Code Status: 11/02/17 21:33 Resuscitation Status: Active [RES] Routine Comment: Resuscitation Status: DNR-Comfort Care-Arrest
[2017-11-09] MEDS: ceFAZolin 1,000 MG in Water for inj. (sterile) 20 ML 10 ML IVPB SCH (12:34)
--- NOTE | 2017-11-09 15:52 | Event Note ---
Date of Encounter: 11/09/17 Time of Encounter: 15:15 Notified by Nurse Leydi that family in attendance. Arrived to bedside to find patient's daughter, Sara, patient's son, Gianfranco, and "granddaughter", Lucille. Discussed poor prognosis of patient. Patient's family agreed that more aggressive treatment has been pursued than the patient's previously known wishes ; however, they need to discuss situation with family members. Verbalized understanding that ET tube is not a assisted solution and that patient has been poorly progressing. Plan to continue treatment of infection with IV antibiotics while family is arranging for all siblings to be present when patient is extubated. Questioned whether would be a possibility to take patient home with hospice after extubation, explained that if patient is stable over night after extubation can work with hospice to arrange transport home; agreement reached. Family wishes to meet again Thursday to withdraw care. Gave family members phone number to schedule a time after arranging with family members. Will continue to follow daily.
[2017-11-09 18:35] LABS: Calcium 7.9 mg/dL (8.6-10.3); Potassium 6.7 mEq/L (3.5-5.1)
[2017-11-09] MEDS ORDERED: FentaNYL (PF) 1,000 MCG in 0.9 % Sodium Chloride 80 ML IVPB ONE (22:00)
[2017-11-10] MEDS: Ipratropium/Albuterol Neb 3 ML IH SCH ×5 (00:18→16:15)
[2017-11-10] MEDS: ceFAZolin 1,000 MG in Water for inj. (sterile) 20 ML 10 ML IVPB SCH ×2 (00:22→11:16)
[2017-11-10] MEDS: Dexmedetomidine HCl 400 MCG/100 ML MLS IVC SCH ×2 (00:22→08:26)
[2017-11-10] MEDS: Insulin LISPRO 300 UNITS/3 ML VIAL SQ SCH ×4 (00:24→11:13)
[2017-11-10 04:52] LABS: Basophils % 0.1 %; Hematocrit 25.4 % (35.3-44.9); Hemoglobin 8.7 g/dL (11.5-15.4); Immature Granulocytes % 3.2 % (0-4); Lymphocytes % 7.2 %; Mean Corpuscular HGB Conc 34.3 g/dL (31.6-35.5); Mean Corpuscular Hemoglobin 34.3 pg (28.0-33.3); Mean Platelet Volume 11.9 fL (9.4-12.4); Monocytes # 1.1 K/mcL (0.0-1.3); Monocytes % 7.5 %; Neutrophils # 11.8 K/mcL (1.6-8.9); Platelet Count 146 K/mcL (140-400); Red Blood Count 2.54 M/mcL (3.82-4.97); Red Cell Distribution Width 15.7 % (11.5-14.5)
[2017-11-10 04:57] LABS: Calcium 7.9 mg/dL (8.6-10.3); Magnesium 2.7 mg/dL (1.6-2.6); Potassium 5.6 mEq/L (3.5-5.1)
[2017-11-10 05:33] LABS: ABG Base Excess 3 mEq/L (-2 to 3); ABG HCO3 27 mEq/L (21-27); ABG Oxygen Saturation 96 % (95-98); ABG PCO2 40 mmHg (35-45); ABG PH 7.44 pH Units (7.32-7.45); ABG PO2 78 mmHg (85-104); ABG TCO2 29 mEq/L (20-26); Blood Gas Modality ASSIST CONTROL; Blood Gas PEEP 5 cm H2O; Blood Gas Respiration Rate 26; Blood Gas VT 420 cc
[2017-11-10] MEDS: *HR* Heparin 5,000 UNIT/ML VIAL SQ SCH (05:56)
--- NOTE | 2017-11-10 07:29 | Pulmonology Progress Note ---
<Steph Rivas M - Last Filed: 11/10/17 08:08> Date of Encounter: 11/10/17 Objective PUL Vital signs: Last Vital Signs Temp 98.8 F 11/10/17 07:00 Pulse 101 11/10/17 08:00 Resp 26 11/10/17 08:00 BP 121/55 11/10/17 08:00 Pulse Ox 95 11/10/17 08:00 Ventilator Settings Ventilator Settings: Ventilator Settings, Last 8 Hours Ventilator Mode VC+ Ventilator Mode CPAP Ventilator Mode CPAP Ventilator Mode VC+ Ventilator Mode VC+ Ventilator Mode VC+ Ventilator Mode VC+ Ventilator Mode VC+ Ventilator Mode VC+ Ventilator Mode VC+ Ventilator Tidal Volume 420 Setting Ventilator Tidal Volume 420 Setting Ventilator Tidal Volume 420 Setting Ventilator Tidal Volume 420 Setting Ventilator Tidal Volume 420 Setting Ventilator Tidal Volume 420 Setting Ventilator Tidal Volume 420 Setting Ventilator Tidal Volume 420 Setting Ventilator Respiratory Rate 26 Setting Ventilator Respiratory Rate 26 Setting Ventilator Respiratory Rate 26 Setting Ventilator Respiratory Rate 26 Setting Ventilator Respiratory Rate 26 Setting Ventilator Respiratory Rate 26 Setting Ventilator Respiratory Rate 26 Setting Ventilator Respiratory Rate 26 Setting Actual Respiratory Rate 26 Actual Respiratory Rate 31 Actual Respiratory Rate 34 Actual Respiratory Rate 29 Actual Respiratory Rate 27 Actual Respiratory Rate 27 Actual Respiratory Rate 27 Actual Respiratory Rate 27 Actual Respiratory Rate 27 Positive End Expiratory 5 Pressure Positive End Expiratory 5 Pressure Positive End Expiratory 5 Pressure Positive End Expiratory 5 Pressure Positive End Expiratory 5 Pressure Positive End Expiratory 5 Pressure Positive End Expiratory 5 Pressure Positive End Expiratory 5 Pressure Positive End Expiratory 5 Pressure Positive End Expiratory 5 Pressure Peak Inspiratory Airway 22 Pressure Peak Inspiratory Airway 16 Pressure Peak Inspiratory Airway 20 Pressure Peak Inspiratory Airway 16 Pressure Peak Inspiratory Airway 23 Pressure Peak Inspiratory Airway 23 Pressure Peak Inspiratory Airway 23 Pressure Peak Inspiratory Airway 21 Pressure Peak Inspiratory Airway 21 Pressure Results - Laboratory Findings CBC and BMP: 11/10/17 04:00 11/10/17 04:00 ABG ABG pH 7.44 pH Units (7.32-7.45) 11/10/17 05:30 ABG pCO2 40 mmHg (35-45) 11/10/17 05:30 ABG pO2 78 mmHg (85-104) L 11/10/17 05:30 ABG O2 Saturation 96 % (95-98) 11/10/17 05:30 PT/INR, D-dimer PT 11.6 Seconds (9.4-12.1) 11/07/17 13:45 Abnormal lab findings: Abnormal lab results WBC 14.4 K/mcL (4.3-11.1) H 11/10/17 04:00 RBC 2.54 M/mcL (3.82-4.97) L 11/10/17 04:00 Hgb 8.7 g/dL (11.5-15.4) L 11/10/17 04:00 Hct 25.4 % (35.3-44.9) L 11/10/17 04:00 MCH 34.3 pg (28.0-33.3) H 11/10/17 04:00 RDW 15.7 % (11.5-14.5) H 11/10/17 04:00 Band Neutrophils % 15.0 % (0-4) H 11/03/17 04:15 Metamyelocytes % 1.0 % (0) H 11/03/17 04:15 Neutrophils # 11.8 K/mcL (1.6-8.9) H 11/10/17 04:00 Nucleated RBCs/100 WBC 0.1 /100 WBC (0) H 11/09/17 02:45 Reactive Lymphocytes Present (Not Present) A 11/04/17 03:50 Toxic Granulation Present (Not Present) A 11/04/17 03:50 Dohle Bodies Present (Not Present) A 11/04/17 03:50 ABG pO2 78 mmHg (85-104) L 11/10/17 05:30 ABG Total CO2 29 mEq/L (20-26) H 11/10/17 05:30 Sodium 147 mEq/L (136-145) H 11/10/17 04:00 Potassium 5.6 mEq/L (3.5-5.1) H 11/10/17 04:00 Chloride 112 mEq/L (98-107) H 11/10/17 04:00 BUN 124 mg/dL (8-23) H 11/10/17 04:00 Creatinine 2.53 mg/dL (0.60-1.20) H 11/10/17 04:00 Est GFR ( Amer) 22 (> 60) L 11/10/17 04:00 Est GFR (Non-Af Amer) 18 (> 60) L 11/10/17 04:00 BUN/Creatinine Ratio 49 (6-26) H 11/10/17 04:00 Glucose 126 mg/dL (70-105) H 11/10/17 04:00 POC Glucose 180 mg/dL (70-99) H 11/09/17 23:31 Hemoglobin A1c 5.8 % (-5.6) H 11/02/17 22:40 Calculated Osmolality 345 (280-300) H 11/10/17 04:00 Calcium 7.9 mg/dL (8.6-10.3) L 11/10/17 04:00 Phosphorus 6.0 mg/dL (2.7-4.5) H 11/10/17 04:00 Magnesium 2.7 mg/dL (1.6-2.6) H 11/10/17 04:00 Total Bilirubin 1.2 mg/dL (0.3-1.0) H 11/02/17 18:42 Troponin I 0.05 ng/mL (< 0.04) H* 11/03/17 07:25 B-Natriuretic Peptide 112 pg/mL (Less than 100) H 11/02/17 18:42 Ur Specimen Adequacy See below A 11/02/17 20:24 Urine Clarity Turbid (Clear) A 11/02/17 20:24 Ur Specific [place] 1.030 (1.010-1.025) H 11/02/17 20:24 Urine Protein >=300 mg/dL (Neg-Trace) H 11/02/17 20:24 Urine Ketones Trace mg/dL (Negative) H 11/02/17 20:24 Urine Blood Large (Negative) H 11/02/17 20:24 Urine Bilirubin Small (Negative) H 11/02/17 20:24 Urine Microscopic WBC 5-15 per hpf (0-3) H 11/02/17 20:24 Ur Squamous Epith Cells Many per lpf (None-Few) H 11/02/17 20:24 Amorphous Sediment Many (Few) H 11/02/17 20:24 Granular Casts Few per lpf (None Seen) H 11/02/17 20:24 Influenza Type B (PCR) DETECTED (Not Detect) A 11/03/17 03:45 - Clinical Findings Intake & Output: Intake & Output 11/09/17 11/10/17 11/10/17 23:59 07:59 15:59 Intake Total 954 / 954 935 / 935 Output Total 2150 / 2150 1050 / 1050 Balance -1196 / -1196 -115 / -115 Consult Discharge Plan - Plan Referrals: Chato Guardado, AIDA [Primary Care Provider] - - Attending Attestation I examined this patient and my medical decision-making was reviewed with the Resident Physician. I agree with the documented findings, disposition and treatment plan as described except to the extent set forth below. Patient seen and examined. Labs, radiology, chart personally reviewed. Agree with resident's history and physical, assessment, plan with following comments: DRIP BOX TENDER: Patient does not follows commands, wean off sedation more Pulmonary: Acceptable oxygenation and ventilation and patient is on CPAP trial at this time and waiting for family meeting. Cardiovascular: stable GI: Nutrition per dietary and GI prophylaxis per routine Heme: DVT prophylaxis per routine ID: Continue antibiotics and plan to de-escalation Renal; urine out put and renal funtion reviewed Endorcine: blood glucose is monitored Lines: all lines checked and no evidence of infections Skin: skin care to prevent pressure ulcers per nursing routine care <Da Oates - Last Filed: 11/10/17 13:47> Date of Encounter: 11/10/17 Time of Encounter: 07:28 Assessment and Plan (1) Acute respiratory failure Current Visit: Yes Status: Acute 2/2 multifocal PNA and influenza B Sputum + for S. aureus Concern for volume overload w/ 3L positive fluid balance Have been gently diuresing due to RUSTY alternating w/ gentle hydration for renal function Still vent-dependent Plan: -Continue CPAP trials as tolerated -Sedation vacation as tolerated -Cefazolin Day 01/10 Qualifiers: Qualified Code(s): J96.01 - Acute respiratory failure with hypoxia (2) Multifocal pneumonia Current Visit: Yes Status: Acute CXR on 11/09/17: 1. Patchy bilateral lung opacities, worse in the RUL most suspicious for multifocal PNA 2. Small b/l pleural effusions -Patient has S. aureus positive sputum, MSSA -Cefazolin Day 01/10 -WC increased 13.7 14.4 (3) Sepsis Current Visit: Yes Status: Resolved -Sepsis, improved -Patient remains tachycardic and tachypneic -Remains Afebrile -WC increased from 13.7 to 14.4 Qualifiers: Qualified Code(s): A41.9 - Sepsis, unspecified organism (4) Acute kidney injury Current Visit: Yes Status: Acute -Acute kidney injury, improving -Serum Cr 2.53; slightly improved from yesterday -Serum K+ 5.5, phosphorus 5.3 -We will continue gentle diuresis with 20mg IV Lasix this morning, possibly repeat later -Nephrology is following, appreciate recommendations (5) Influenza B Current Visit: Yes Status: Acute -Patient has finished Tamiflu regimen (6) Hyperkalemia Current Visit: Yes Status: Acute -Hyperkalemia, likely secondary to poor renal excretion -Serum K+ 5.5, no obvious EKG changes -Appreciate nephrology recommendations (7) Diabetes mellitus Current Visit: Yes Status: Acute -DM2 with hyperglycemia -Continue q4h accuchecks -Continue basal insulin and High dose sliding scale Qualifiers: Qualified Code(s): E11.8 - Type 2 diabetes mellitus with unspecified complications (8) Ovarian cancer Current Visit: Yes Status: Chronic Qualifiers: Qualified Code(s): C56.9 - Malignant neoplasm of unspecified ovary (9) DVT prophylaxis Current Visit: Yes Status: Acute -Heparin 5000 SQ Q8 Subjective Principal diagnosis: multifocal pneumonia and influneza B Interval history: Patient was seen and examined at bedside this morning. The patient remains intubated at this time. She is mildly responsive to verbal stimuli, opening her eyes and closing them again. Per palliative consult note, family meeting today. Current CODE STATUS is DNR-CCA. Objective PUL Vital signs: Last Vital Signs Temp 99.5 F 11/10/17 04:00 Pulse 100 11/10/17 06:00 Resp 31 11/10/17 07:20 BP 171/89 11/10/17 07:20 Pulse Ox 96 11/10/17 07:20 General appearance: no acute distress, comatose Eyes: nonicteric ENT: oropharynx moist Neck: supple, no lymphadenopathy Effort: normal Auscultation: bilateral: clear Percussion: bilateral: not dull Tactile fremitus: bilateral: normal Cardiovascular: other (tachycardic) Integumentary: normal unable to assess due to mental status Ventilator Settings Ventilator Settings: Ventilator Settings, Last 8 Hours Ventilator Mode CPAP Ventilator Mode VC+ Ventilator Mode VC+ Ventilator Mode VC+ Ventilator Mode VC+ Ventilator Mode VC+ Ventilator Mode VC+ Ventilator Mode VC+ Ventilator Mode VC+ Ventilator Tidal Volume 420 Setting Ventilator Tidal Volume 420 Setting Ventilator Tidal Volume 420 Setting Ventilator Tidal Volume 420 Setting Ventilator Tidal Volume 420 Setting Ventilator Tidal Volume 420 Setting Ventilator Tidal Volume 420 Setting Ventilator Tidal Volume 420 Setting Ventilator Respiratory Rate 26 Setting Ventilator Respiratory Rate 26 Setting Ventilator Respiratory Rate 26 Setting Ventilator Respiratory Rate 26 Setting Ventilator Respiratory Rate 26 Setting Ventilator Respiratory Rate 26 Setting Ventilator Respiratory Rate 26 Setting Ventilator Respiratory Rate 26 Setting Actual Respiratory Rate 31 Actual Respiratory Rate 29 Actual Respiratory Rate 27 Actual Respiratory Rate 27 Actual Respiratory Rate 27 Actual Respiratory Rate 27 Actual Respiratory Rate 27 Actual Respiratory Rate 27 Positive End Expiratory 5 Pressure Positive End Expiratory 5 Pressure Positive End Expiratory 5 Pressure Positive End Expiratory 5 Pressure Positive End Expiratory 5 Pressure Positive End Expiratory 5 Pressure Positive End Expiratory 5 Pressure Positive End Expiratory 5 Pressure Positive End Expiratory 5 Pressure Peak Inspiratory Airway 16 Pressure Peak Inspiratory Airway 16 Pressure Peak Inspiratory Airway 23 Pressure Peak Inspiratory Airway 23 Pressure Peak Inspiratory Airway 23 Pressure Peak Inspiratory Airway 21 Pressure Peak Inspiratory Airway 21 Pressure Peak Inspiratory Airway 21 Pressure Results - Laboratory Findings CBC and BMP: 11/10/17 04:00 11/10/17 04:00 ABG ABG pH 7.44 pH Units (7.32-7.45) 11/10/17 05:30 ABG pCO2 40 mmHg (35-45) 11/10/17 05:30 ABG pO2 78 mmHg (85-104) L 11/10/17 05:30 ABG O2 Saturation 96 % (95-98) 11/10/17 05:30 PT/INR, D-dimer PT 11.6 Seconds (9.4-12.1) 11/07/17 13:45 Abnormal lab findings: Abnormal lab results WBC 14.4 K/mcL (4.3-11.1) H 11/10/17 04:00 RBC 2.54 M/mcL (3.82-4.97) L 11/10/17 04:00 Hgb 8.7 g/dL (11.5-15.4) L 11/10/17 04:00 Hct 25.4 % (35.3-44.9) L 11/10/17 04:00 MCH 34.3 pg (28.0-33.3) H 11/10/17 04:00 RDW 15.7 % (11.5-14.5) H 11/10/17 04:00 Band Neutrophils % 15.0 % (0-4) H 11/03/17 04:15 Metamyelocytes % 1.0 % (0) H 11/03/17 04:15 Neutrophils # 11.8 K/mcL (1.6-8.9) H 11/10/17 04:00 Nucleated RBCs/100 WBC 0.1 /100 WBC (0) H 11/09/17 02:45 Reactive Lymphocytes Present (Not Present) A 11/04/17 03:50 Toxic Granulation Present (Not Present) A 11/04/17 03:50 Dohle Bodies Present (Not Present) A 11/04/17 03:50 ABG pO2 78 mmHg (85-104) L 11/10/17 05:30 ABG Total CO2 29 mEq/L (20-26) H 11/10/17 05:30 Sodium 147 mEq/L (136-145) H 11/10/17 04:00 Potassium 5.6 mEq/L (3.5-5.1) H 11/10/17 04:00 Chloride 112 mEq/L (98-107) H 11/10/17 04:00 BUN 124 mg/dL (8-23) H 11/10/17 04:00 Creatinine 2.53 mg/dL (0.60-1.20) H 11/10/17 04:00 Est GFR ( Amer) 22 (> 60) L 11/10/17 04:00 Est GFR (Non-Af Amer) 18 (> 60) L 11/10/17 04:00 BUN/Creatinine Ratio 49 (6-26) H 11/10/17 04:00 Glucose 126 mg/dL (70-105) H 11/10/17 04:00 POC Glucose 180 mg/dL (70-99) H 11/09/17 23:31 Hemoglobin A1c 5.8 % (-5.6) H 11/02/17 22:40 Calculated Osmolality 345 (280-300) H 11/10/17 04:00 Calcium 7.9 mg/dL (8.6-10.3) L 11/10/17 04:00 Phosphorus 6.0 mg/dL (2.7-4.5) H 11/10/17 04:00 Magnesium 2.7 mg/dL (1.6-2.6) H 11/10/17 04:00 Total Bilirubin 1.2 mg/dL (0.3-1.0) H 11/02/17 18:42 Troponin I 0.05 ng/mL (< 0.04) H* 11/03/17 07:25 B-Natriuretic Peptide 112 pg/mL (Less than 100) H 11/02/17 18:42 Ur Specimen Adequacy See below A 11/02/17 20:24 Urine Clarity Turbid (Clear) A 11/02/17 20:24 Ur Specific [place] 1.030 (1.010-1.025) H 11/02/17 20:24 Urine Protein >=300 mg/dL (Neg-Trace) H 11/02/17 20:24 Urine Ketones Trace mg/dL (Negative) H 11/02/17 20:24 Urine Blood Large (Negative) H 11/02/17 20:24 Urine Bilirubin Small (Negative) H 11/02/17 20:24 Urine Microscopic WBC 5-15 per hpf (0-3) H 11/02/17 20:24 Ur Squamous Epith Cells Many per lpf (None-Few) H 11/02/17 20:24 Amorphous Sediment Many (Few) H 11/02/17 20:24 Granular Casts Few per lpf (None Seen) H 11/02/17 20:24 Influenza Type B (PCR) DETECTED (Not Detect) A 11/03/17 03:45 - Clinical Findings Intake & Output: Intake & Output 11/09/17 11/09/17 11/10/17 15:59 23:59 07:59 Intake Total 710 / 710 954 / 954 560 / 560 Output Total 1250 / 1250 2150 / 2150 650 / 650 Balance -540 / -540 -1196 / -1196 -90 / -90
[2017-11-10] MEDS: Insulin DETEMIR 100 UNIT/ML X5UNITS SQ SCH (08:23)
[2017-11-10] MEDS: Pantoprazole 40 MG VIAL IVP SCH (08:23)
[2017-11-10] MEDS: FentaNYL (PF) 2,500 MCG in EMPTY BAG 50 EACH IVC SCH (08:25)
--- NOTE | 2017-11-10 09:23 | Palliative Progress Note ---
Date of Encounter: 11/10/17 Time of Encounter: 08:40 - Assessment and plan (1) Respiratory distress Current Visit: Yes Status: Acute Assessment and plan: Patient remains ventilator dependent. Failed CPAP Trial. Discussed situation with family. Family wishes to transition patient to comfort care. Discontinue ventilator support, add Oxygen 2 L per NC titrate for comfort. Continue Duonebs. (2) Severe sepsis Current Visit: Yes Status: Acute Assessment and plan: WBC increased to 14.4 and Neutrophils increased to 11.8. Patient remains afebrile. Patient's family wishes to transition to comfort care. Discontinued IV antibiotics. (3) Ovarian cancer Current Visit: Yes Status: Chronic Qualifiers: Laterality: unspecified laterality Qualified Code(s): C56.9 - Malignant neoplasm of unspecified ovary (4) Acute respiratory failure Current Visit: Yes Status: Acute Assessment and plan: Patient to be made comfort care. Discontinue ventilator support and add 2L Oxygen per NC, titrate for comfort. Continue duonebs prn. May titrate off of Precedex and Fentanyl drip for comfort. Qualifiers: Respiratory failure complication: hypoxia Qualified Code(s): J96.01 - Acute respiratory failure with hypoxia (5) Acute kidney injury Current Visit: Yes Status: Acute Assessment and plan: Nephrology managing. BUN increased to 124 and Creatinine decreased to 2.53. Continue to follow Nephrology recommendations. (6) Goals of care, counseling/discussion Current Visit: Yes Status: Acute Assessment and plan: Patient remains ventilator dependent; failed CPAP trial this morning. WBC, Neutrophils, and BUN remain elevated. Code status established as DNR CCA. Met with family yesterday afternoon and shared patient's prognosis. Family originally agreed to reconvene Thursday with the idea of withdrawing care. Lucille, family friend who reports is a granddaughter, called yesterday evening and explained that family spoke last night and wishes to meet at 1 pm today. Notified Nurse Renetta. 1300: Met with family including patient's 2 sons, daughter, "granddaughter," and 3 nieces/nephews. Explained patient's continued condition deterioration and latest lab values. Gave family continued treatment options and prognosis. Explained unable to predict length of time remaining given different options. Patient's family chose to change patient's code status to DNR Comfort Care and free patient from machines. Patient to be kept comfortable and give family quality time with her should she wake up. Family verbalized understanding. (7) Anxiety Current Visit: Yes Status: Acute Assessment and plan: Patient may have increased anxiety post ventilator withdrawal. Ordered Ativan 1mg q2h prn IVP. May titrate Precedex drip and Fentanyl Drip. (8) Excessive oral secretions Current Visit: Yes Status: Acute Assessment and plan: Increased oral secretions potential post ET tube withdrawal. Ordered Scopalamine and Atropine drops. - Time Spent With Patient Total time spent is greater than 50% in coordination of care (as documented) at patient's floor/unit and/or counseling patient: Greater than 35 minutes - Subjective Interval history: Patient resting quietly with eyes closed upon arrival. Patient remains intubated, failed CPAP trial this morning after 1.5 hours per nurse Jackson. Fluttering to eyelids noted when spoken to, but patient immediately closed her eyes. Would not squeeze hands when asked, but gag reflex intact. No family present at bedside. Received phone call yesterday evening and family requests to have meeting today at 1 pm, notified Nurse Jackson. - Constitutional Vitals: Abnormal lab results WBC 14.4 K/mcL (4.3-11.1) H 11/10/17 04:00 RBC 2.54 M/mcL (3.82-4.97) L 11/10/17 04:00 Hgb 8.7 g/dL (11.5-15.4) L 11/10/17 04:00 Hct 25.4 % (35.3-44.9) L 11/10/17 04:00 MCH 34.3 pg (28.0-33.3) H 11/10/17 04:00 RDW 15.7 % (11.5-14.5) H 11/10/17 04:00 Band Neutrophils % 15.0 % (0-4) H 11/03/17 04:15 Metamyelocytes % 1.0 % (0) H 11/03/17 04:15 Neutrophils # 11.8 K/mcL (1.6-8.9) H 11/10/17 04:00 Nucleated RBCs/100 WBC 0.1 /100 WBC (0) H 11/09/17 02:45 Reactive Lymphocytes Present (Not Present) A 11/04/17 03:50 Toxic Granulation Present (Not Present) A 11/04/17 03:50 Dohle Bodies Present (Not Present) A 11/04/17 03:50 ABG pO2 78 mmHg (85-104) L 11/10/17 05:30 ABG Total CO2 29 mEq/L (20-26) H 11/10/17 05:30 Sodium 147 mEq/L (136-145) H 11/10/17 04:00 Potassium 5.6 mEq/L (3.5-5.1) H 11/10/17 04:00 Chloride 112 mEq/L (98-107) H 11/10/17 04:00 BUN 124 mg/dL (8-23) H 11/10/17 04:00 Creatinine 2.53 mg/dL (0.60-1.20) H 11/10/17 04:00 Est GFR ( Amer) 22 (> 60) L 11/10/17 04:00 Est GFR (Non-Af Amer) 18 (> 60) L 11/10/17 04:00 BUN/Creatinine Ratio 49 (6-26) H 11/10/17 04:00 Glucose 126 mg/dL (70-105) H 11/10/17 04:00 POC Glucose 180 mg/dL (70-99) H 11/09/17 23:31 Hemoglobin A1c 5.8 % (-5.6) H 11/02/17 22:40 Calculated Osmolality 345 (280-300) H 11/10/17 04:00 Calcium 7.9 mg/dL (8.6-10.3) L 11/10/17 04:00 Phosphorus 6.0 mg/dL (2.7-4.5) H 11/10/17 04:00 Magnesium 2.7 mg/dL (1.6-2.6) H 11/10/17 04:00 Total Bilirubin 1.2 mg/dL (0.3-1.0) H 11/02/17 18:42 Troponin I 0.05 ng/mL (< 0.04) H* 11/03/17 07:25 B-Natriuretic Peptide 112 pg/mL (Less than 100) H 11/02/17 18:42 Ur Specimen Adequacy See below A 11/02/17 20:24 Urine Clarity Turbid (Clear) A 04/02/18 20:24 Ur Specific [place] 1.030 (1.010-1.025) H 11/02/17 20:24 Urine Protein >=300 mg/dL (Neg-Trace) H 11/02/17 20:24 Urine Ketones Trace mg/dL (Negative) H 11/02/17 20:24 Urine Blood Large (Negative) H 11/02/17 20:24 Urine Bilirubin Small (Negative) H 11/02/17 20:24 Urine Microscopic WBC 5-15 per hpf (0-3) H 11/02/17 20:24 Ur Squamous Epith Cells Many per lpf (None-Few) H 11/02/17 20:24 Amorphous Sediment Many (Few) H 11/02/17 20:24 Granular Casts Few per lpf (None Seen) H 11/02/17 20:24 Influenza Type B (PCR) DETECTED (Not Detect) A 11/03/17 03:45 General appearance: Present: no acute distress, obese - Head Head exam: Present: atraumatic, normal inspection - Eye Eye exam: Present: normal appearance, PERRL, conjuntiva pink. Absent: nystagmus , periorbital swelling, periorbital tenderness Pupils: Present: normal accommodation, PERRL - ENT ENT exam: Present: mucous membranes moist, normal external ear exam - Neck Neck exam: Present: normal inspection - Expanded Neck Exam Neck exam: Absent: anterior neck swelling - Respiratory Respiratory exam: Present: accessory muscle use. Absent: respiratory distress - Expanded Respiratory Exam Location: rhonchi: Right, Left, Upper, wheezes: Lower, Right, Left - Cardiovascular Cardiovascular exam: Present: +S1, +S2. Absent: irregular rhythm - Expanded Cardiovascular Exam Peripheral pulses: 2+: Carotid (L) PM, Carotid (R) PM, Dorsalis Pedis (L) PM, Dorsalis Pedis (R) PM - GI/Abdominal GI/Abdominal exam: Present: distended, firm, hyperactive bowel sounds. Absent: tenderness - Rectal Rectal exam: Present: deferred - Extremities Exam Extremities exam: Present: pedal edema. Absent: calf tenderness, tenderness - Neurological Exam Neurological exam: Present: altered. Absent: oriented X3 - Expanded Neurological Exam Cranial nerves: nystagmus: Normal Coma Scale Eye Opening: None Coma Scale Motor Response: Withdraws to Pain Coma Scale Verbal Response: None Coma Scale Total: 6 - Psychiatric Psychiatric exam: Present: flat affect - Skin Skin exam: Present: dry, intact, normal color. Absent: diaphoretic Additional comments: feet cool to touch. Palliative Quality Palliative Quality: Screen for Code Status: Yes, Screen for Goals of Care: Yes, Screen for Pain: Yes, If Pain Regimen Started, Initiate Bowel Regimen: NA, Screen for Nausea/Vomitting: No (non-responsive.) Code Status: 11/02/17 21:33 Resuscitation Status: Active [RES] Routine Comment: Resuscitation Status: DNR-Comfort Care-Arrest - Labs CBC & Chem 7: 11/10/17 04:00 11/10/17 04:00 Labs: Laboratory Results - last 24 hr 11/09/17 11/09/17 11/09/17 04:19 07:11 11:37 WBC RBC Hgb Hct MCV MCH MCHC RDW Plt Count MPV Immature Gran % Seg Neutrophils % Lymphocytes % Monocytes % Eosinophils % Basophils % Neutrophils # Lymphocytes # Monocytes # Eosinophils # Basophils # ABG pH ABG pCO2 ABG pO2 ABG HCO3 ABG Total CO2 ABG O2 Saturation ABG Base Excess Respiration Rate O2 Delivery Device Blood Gas Modality Inspired O2 Tidal Volume PEEP Sodium Potassium Chloride Carbon Dioxide BUN Creatinine Est GFR ( Amer) Est GFR (Non-Af Amer) BUN/Creatinine Ratio Glucose POC Glucose 136 H 172 H 100 H Calculated Osmolality Calcium Phosphorus Magnesium 11/09/17 11/09/17 11/09/17 17:33 19:05 23:31 WBC RBC Hgb Hct MCV MCH MCHC RDW Plt Count MPV Immature Gran % Seg Neutrophils % Lymphocytes % Monocytes % Eosinophils % Basophils % Neutrophils # Lymphocytes # Monocytes # Eosinophils # Basophils # ABG pH ABG pCO2 ABG pO2 ABG HCO3 ABG Total CO2 ABG O2 Saturation ABG Base Excess Respiration Rate O2 Delivery Device Blood Gas Modality Inspired O2 Tidal Volume PEEP Sodium 143 Potassium 6.7 H* Chloride 109 H Carbon Dioxide 25 BUN 118 H Creatinine 2.65 H Est GFR ( Amer) 21 L Est GFR (Non-Af Amer) 18 L BUN/Creatinine Ratio 45 H Glucose 114 H POC Glucose 141 H 180 H Calculated Osmolality 334 H Calcium 7.9 L Phosphorus Magnesium 11/10/17 11/10/17 11/10/17 04:00 04:00 05:30 WBC 14.4 H RBC 2.54 L Hgb 8.7 L Hct 25.4 L MCV 100.0 MCH 34.3 H MCHC 34.3 RDW 15.7 H Plt Count 146 MPV 11.9 Immature Gran % 3.2 Seg Neutrophils % 82.0 Lymphocytes % 7.2 Monocytes % 7.5 Eosinophils % 0.0 Basophils % 0.1 Neutrophils # 11.8 H Lymphocytes # 1.0 Monocytes # 1.1 Eosinophils # 0.0 Basophils # 0.0 ABG pH 7.44 ABG pCO2 40 ABG pO2 78 L ABG HCO3 27 ABG Total CO2 29 H ABG O2 Saturation 96 ABG Base Excess 3 Respiration Rate 26 O2 Delivery Device Adult Vent Blood Gas Modality ASSIST CONTROL Inspired O2 40.0 Tidal Volume 420 PEEP 5 Sodium 147 H Potassium 5.6 H Chloride 112 H Carbon Dioxide 26 BUN 124 H Creatinine 2.53 H Est GFR ( Amer) 22 L Est GFR (Non-Af Amer) 18 L BUN/Creatinine Ratio 49 H Glucose 126 H POC Glucose Calculated Osmolality 345 H Calcium 7.9 L Phosphorus 6.0 H Magnesium 2.7 H - Impressions Impressions Chest X-Ray 11/09/17 08:38 IMPRESSION: 1. Patchy bilateral lung opacities, worse in the right upper lobe most suspicious for multifocal pneumonia. 2. Small bilateral pleural effusions. D/ / Glendy Acevedo MD / Glendy Acevedo MD Interpreting Provider: Glendy Acevedo MD - ABG Interpretation ABG results: ABG ABG pH 7.44 pH Units (7.32-7.45) 11/10/17 05:30 ABG pCO2 40 mmHg (35-45) 11/10/17 05:30 ABG pO2 78 mmHg (85-104) L 11/10/17 05:30 ABG O2 Saturation 96 % (95-98) 11/10/17 05:30 PT/INR, D-dimer PT 11.6 Seconds (9.4-12.1) 11/07/17 13:45 Consult Discharge Plan - Plan Referrals: Chato Guardado, AIDA [Primary Care Provider] -
[2017-11-10] MEDS ORDERED: Atropine Sulfate 1% 40 DROP/2 ML BOTTLE SL PRN (13:28)
[2017-11-10] MEDS ORDERED: Ondansetron 4 MG/2 ML VIAL IVP PRN (13:29)
[2017-11-10] MEDS ORDERED: Scopolamine Patch 1.5 MG PATCH.TD72 TD SCH (13:30)
[2017-11-10] MEDS: *HR* LORazepam 2 MG/ML VIAL IVP PRN ×2 (13:43→15:17)
[2017-11-10] MEDS ORDERED: *HR* Metoprolol 5 MG/5 ML VIAL IVP PRN (15:10)
[2017-11-10 15:32] VITALS: BP 205/93
[2017-11-10] MEDS ORDERED: *HR* Midazolam HCl 2 MG/2 ML VIAL IVP ONE (16:43)
--- NOTE | 2017-11-10 16:55 | Death Note ---
<Clay Epps - Last Filed: 11/10/17 17:29> Discharge Sum: Summary - Date and Time Date of admission: 11/02/17 20:21 Date of : 11/10/17 Time of : 16:48 - Summary Details: Gricel Hooper with a 77-year-old female with a prior history of ovarian cancer who initially presented to [place] in respiratory distress who initially failed BiPAP and required intubation. Found to have influenza with a concomitant staph multifocal pneumonia. She was admitted for several days of antibiotics without improvement in her respiratory or neurologic function. Her disease course was further worsened with an acute kidney injury during hospitalization with nephrology consultation. Despite resuscitative efforts, mechanical ventilation and antibiotic therapy her clinical course continued to decline. After family meetings, the patient was made DNR CC and was terminally extubated on 11/10/17. Time of pronounced at 16:48 - Additional Data Confirmation of as documented by pronouncing clinician: no respirations, no heart sounds Family: at bedside Attending/PCP notified?: Yes Attending physician: Frank Franks Was code activated?: No Autopsy requested?: No Organ bank notified?: No Hospice patient?: No Discharge Sum: Diag - PCOD Probable Cause of : Acute respiratory failure Discharge Sum: Prov - Provider Primary care physician: Chato Guardado CNP Admitting clinician: Victoria Aguayo Attending physician on admission: Victoria Aguayo Consults: 11/02/17 23:37 Consult to [employer] Installer [CONS] Routine Reason for SW Consult: potential for home health needs 11/03/17 03:23 Consult to Pulmonology [CONS] Routine Consulting Provider: Pulm Crit Care & Sleep Irena Reason for Consult: Intubation, respiratory failure Call Completed: No 11/03/17 11:30 Consult to Nutrition [CONS] Routine Comment: Consulting Provider: NUTRITION Reason for Dietary Consult: Tube Feed Start & Manage 11/05/17 11:08 Consult to Nephrology [CONS] Routine Consulting Provider: Kidney Irena/JHONY/MIKE/RUSH Reason for Consult: RUSTY worsening Time Notified: 11:09 Call Completed: Yes 11/08/17 19:30 Consult to Pastoral Services [CONS] Routine Comment: 11/09/17 10:45 Consult to Palliative Care [CONS] Routine Comment: Consulting Provider: Palliative Care Irena Reason for Consult: extended intubation Call Completed: Yes Pronouncing clinician: Steph Rivas <Steph Rivas - Last Filed: 11/10/17 21:30> Discharge Sum: Summary - Date and Time Date of admission: 11/02/17 20:21 - Additional Data Attending physician: Frank Franks Discharge Sum: Prov - Provider Primary care physician: Chato Guardado CNP Consults: 11/02/17 23:37 Consult to [employer] Installer [CONS] Routine Reason for SW Consult: potential for home health needs 11/03/17 03:23 Consult to Pulmonology [CONS] Routine Consulting Provider: Pulm Crit Care & Sleep Irena Reason for Consult: Intubation, respiratory failure Call Completed: No 11/03/17 11:30 Consult to Nutrition [CONS] Routine Comment: Consulting Provider: NUTRITION Reason for Dietary Consult: Tube Feed Start & Manage 11/05/17 11:08 Consult to Nephrology [CONS] Routine Consulting Provider: Kidney Irena/JHONY/MIKE/RUSH Reason for Consult: RUSTY worsening Time Notified: 11:09 Call Completed: Yes 11/08/17 19:30 Consult to Pastoral Services [CONS] Routine Comment: 11/09/17 10:45 Consult to Palliative Care [CONS] Routine Comment: Consulting Provider: David Osborn Reason for Consult: extended intubation Call Completed: Yes - Attending Attestation I examined this patient and my medical decision-making was reviewed with the Resident Physician. I agree with the documented findings, disposition and treatment plan as described except to the extent set forth below. This patient was extubated compationately and then after that. Patient was seen by palliative care and family at the bedside. Please see residents notes above for more detail about hospital course.
== END 2017-11-10 16:48 | disposition expired | DRG 870 ==
LOC: EMEROO 18:08 → ICNU 20:21
PROVIDERS: ADMIT Internal Medicine; ATTEND Internal Medicine